=== PATIENT | female | born 1990 | race Caucasian/White ===

== ENCOUNTER 2023-07-11 09:41 | Emergency (ER) | payer MEDICARE, MEDICAID, SELFPAY ==
[2023-07-11 10:15] VITALS: BP 114/63; PULSE 107; RESP 16; TEMP 37.7; O2SAT 95
--- NOTE | 2023-07-11 10:40 | ED.URI ---
HPI - URI/Sore Throat General Chief Complaint: Upper Respiratory Infection Stated Complaint: Cough/Chest Congestion Time Seen by Provider: 07/11/23 10:30 Source: patient and RN notes reviewed Mode of arrival: ambulatory Limitations: no limitations History of Present Illness HPI Narrative: 33-year-old male presenting for complaint of fatigue, headache, body aches, sinus pressure/congestion, cough, fever/chills. onset last evening. Taking ibuprofen for symptoms. He endorses known exposure to COVID. Mother also has similar symptoms. Patient completed alcohol rehab and has been sober for 2.5 months. Denies chest pain, sob, wheezing, n/v/d. MD elicited complaint: cough Related Data Home Medications Medication Instructions Recorded Confirmed atomoxetine 80 mg capsule mg PO 07/11/23 atorvastatin 20 mg tablet mg 07/11/23 atropine 1 % eye drops drp 07/11/23 buspirone 15 mg tablet mg 07/11/23 carbamazepine 200 mg tablet mg 07/11/23 clozapine 100 mg tablet mg 07/11/23 dextromethorphan IR 45 tablet PO 07/11/23 mg-bupropion ER 105 mg biphasic tablet (Auvelity) fluoxetine 40 mg capsule mg 07/11/23 gabapentin 300 mg capsule mg 07/11/23 icosapent ethyl 1 gram capsule g PO 07/11/23 (Vascepa) metformin 500 mg tablet mg 07/11/23 metoprolol tartrate 50 mg tablet mg 07/11/23 naltrexone 50 mg tablet mg 07/11/23 potassium chloride 10 mEq meq 07/11/23 capsule,extended release prednisone 20 mg tablet mg 07/11/23 semaglutide 3 mg tablet (Rybelsus) mg PO 07/11/23 Allergies Allergy/AdvReac Type Severity Reaction Status Date / Time amoxicillin Allergy Unknown Verified 07/11/23 10:13 tramadol Allergy Unknown Verified 07/11/23 10:13 Review of Systems Review of Systems: CONSTITUTIONAL: Endorses malaise, chills, sweats, fever EYES: Denies visual changes, redness, or discharge ENT: Reports rhinorrhea, congestion, sinus pain, denies otalgia, sore throat CARDIOVASCULAR: Denies chest pain, palpitations, edema RESPIRATORY: Reports cough, post nasal drainage. Denies dyspnea GASTROINTESTINAL: Denies abdominal pain, nausea, vomiting, diarrhea SKIN: Denies rash or itching MUSCULOSKELETAL: Endorses myalgia NEUROLOGIC: endorses headache [facility] Past Medical History Medical History (Updated 07/11/23 @ 10:45 by Genesis Brooks APRN) Alcoholism Diabetes Social History Social History (Updated 07/11/23 @ 10:45 by Genesis Brooks APRN) Alcohol intake: current Alcohol use details: alcohol rehab 2022 Exam Narrative: GENERAL: Ill-appearing, nontoxic no acute distress. HEAD: Normocephalic EYES: PERRLA, conjunctivae clear ENT: Mucous membranes moist. TM pearly salmon with dull light reflex bilaterally; no tragal tenderness. NECK: Supple. No lymphadenopathy CHEST: Clear to auscultation, breath sounds equal. No wheezing, rhonchi, rales, or stridor. No respiratory distress, speaks in full sentences. HEART: Regular rate and rhythm. No murmur heard. ABD: large, soft, nontender SKIN: Warm, dry, no rash. NEURO: Alert and oriented x3. PSYCH: Normal mood and affect Course Course Emergency Course: Patient is aware of diagnosis, understands and agrees to treatment plan. Anticipatory guidance given. Patient agrees to follow-up as directed and is aware of reasons to seek care at the emergency department. Portions of this record may have been created with voice recognition software Level of Care: Express Care Visit Vital Signs Vital signs: Vital Signs Temperature 99.8 F H 07/11/23 10:15 Pulse Rate 107 H 07/11/23 10:15 Respiratory Rate 16 07/11/23 10:15 Blood Pressure 114/63 07/11/23 10:15 Pulse Oximetry 95 07/11/23 10:15 Oxygen Delivery Room Air 07/11/23 10:15 Temperature 99.8 F H 07/11/23 10:15 Pulse Rate 107 H 07/11/23 10:15 Respiratory Rate 16 07/11/23 10:15 Blood Pressure 114/63 07/11/23 10:15 Pulse Oximetry 95 07/11/23 10:15 Oxygen Delivery Room Air 0
== END 2023-07-11 10:49 | disposition home or self-care (01) ==
PROVIDERS: Emergency Provider Nurse Practitioner Family
DX: B34.9 Viral infection, unspecified (principal); E11.9 Type 2 diabetes mellitus without complications
CPT/HCPCS: 99211; G0463

== ENCOUNTER 2025-01-01 11:52 | Emergency (ER) | payer MEDICARE, MEDICAID, SELFPAY ==
--- NOTE | 2025-01-01 11:58 | ED_ITS ---
HPI - Skin/Abscess/Foreign Bdy General Chief complaint: Skin/Abscess/Foreign Body Stated complaint: Rash Time Seen by Provider: 01/01/25 11:55 Source: patient Mode of arrival: ambulatory Limitations: no limitations History of Present Illness HPI narrative: Patient is a 34-year-old male who presents with a rash to bilateral forearms for 3 days. Patient describes it as burning. Denies any known exposures, soaps, detergents. Patient restarted medication 3 weeks ago. Denies any itching but does state the rash has spread up forearms from wrist. Patient has not taken anything or put anything on rash. Related Data Home Medications ?Medication ?Instructions ?Recorded ?Confirmed ?Last Taken ?Type atomoxetine 80 mg capsule mg PO 07/11/23 Unknown History atorvastatin 20 mg tablet mg 07/11/23 Unknown History buspirone 15 mg tablet mg 07/11/23 Unknown History carbamazepine 200 mg tablet mg 07/11/23 Unknown History clozapine 100 mg tablet mg 07/11/23 Unknown History dextromethorphan IR 45 tablet PO 07/11/23 Unknown History mg-bupropion ER 105 mg biphasic tablet (Auvelity) icosapent ethyl 1 gram capsule g PO 07/11/23 Unknown History (Vascepa) metoprolol tartrate 50 mg tablet mg 07/11/23 Unknown History naltrexone 50 mg tablet mg 07/11/23 Unknown History semaglutide 3 mg tablet (Rybelsus) mg PO 07/11/23 Unknown History atorvastatin 40 mg tablet mg 01/01/25 Unknown History bupropion HCl 150 mg 24 hr tablet, mg PO 01/01/25 Unknown History extended release mirtazapine 15 mg tablet mg 01/01/25 Unknown History Allergies Allergy/AdvReac Type Severity Reaction Status Date / Time amoxicillin Allergy Unknown Verified 07/11/23 10:13 tramadol Allergy Unknown Verified 07/11/23 10:13 Review of Systems Review of Systems: All systems reviewed & are unremarkable except as noted in HPI and below Constitutional: Constitutional: Denies body ache(s), Denies chills, Denies fatigue, Denies fever(s), Denies headache(s), Denies malaise and Denies weakness Eyes: Eyes: Denies blurry vision, Denies irritation and Denies loss of vision ENT: Denies otalgia, Denies headache(s), Denies nasal discharge, Denies sinus pain and Denies sore throat Cardiovascular: Cardiovascular: Denies chest pain, Denies irregular heart rhythm and Denies dyspnea Respiratory: Respiratory: Denies dyspnea Gastrointestinal: Gastrointestinal: Denies abdominal pain, Denies melena, Denies hematochezia, Denies diarrhea, Denies nausea and Denies vomiting Musculoskeletal: Musculoskeletal: Denies back pain, Denies myalgias and Denies arthralgias Integumentary/Breasts: Skin/Breast: Denies pruritus and Reports rash Neurologic: Denies headache(s), Denies loss of vision and Denies weakness Psychiatric: Psychiatric: Reports no additional psychiatric complaints Endocrine: Endocrine: Denies fatigue PMFSH Past Medical History Medical History Diabetes Alcoholism Social History Social History Alcohol intake: current Alcohol use details: alcohol rehab 2022 Comments At time of signature, agree with nursing past medical, surgical, social and family history. There is no relevant family history pertinent to the presenting complaint. Exam Const: General: cooperative, healthy appearing, comfortable, no acute distress and well nourished Nutritional Appearance: well nourished Orientation/consciousness: patient oriented x3 Limitations: no limitations HENMT: Head: normal to inspection, normocephalic and atraumatic Ears: hear ing grossly normal bilaterally and external ears normal Face/Nose/Sinus: Normal external nose present, normal facial exam and face symmetric Face and sinus: normal facial exam and face symmetric Mouth: Yes lip normal Eyes: General: appearance normal, both eyes and all related structures Alignment and Position: alignment normal and position normal Periorbital: periorbital findings normal Eyelids: eyelids normal Pupils: Equal, round and reactive pupils present EOM: EOMs intact bilaterally Neck: Neck: normal visual inspection, full ROM and supple Chest: Chest palpation & inspection: normal inspection of the chest Resp: Effort & Inspection: normal respiratory effort and able to speak in complete sentences Auscultation: clear to auscultation bilaterally Cardio: Rate: regular rate Rhythm: regular rhythm Heart sounds: S1 normal heart sound present and S2 normal heart sound present GI: Inspection: normal to inspection Skin: General skin exam: normal color and no rashes or lesions noted Rashes: rashes noted macules bilateral forearm arrangement grouped, borders sharp and irregular, color with an erythematous base and surface erythematous and warm; nontender Neuro: General: patient oriented x3 and moves all extremities Cranial nerves: Yes Equal, round and reactive pupils present Speech: normal speech Gait exam (Neuro): Normal gait present Extrem: General: normal to inspection, full ROM and no edema Psych: Appearance: grossly normal and well kempt Mental Status: mental status grossly normal Speech and movement: Normal speech and movement present Affect: normal affect Attitude: cooperative Thought process: Normal thought process present Course Course Emergency Course: Patient is aware of diagnosis, understands and agrees to treatment plan. Anticipatory guidance given. Patient agrees to follow-up as directed and is aware of reasons to seek care at the emergency department. Portions of this record may have been created with voice recognition software Level of Care: Express Care Visit Vital Signs Vital signs: Vital Signs Temperature 37.1 C 01/01/25 11:59 Pulse Rate 109 H 01/01/25 11:59 Respiratory Rate 18 01/01/25 11:59 Blood Pressure 139/91 H 01/01/25 11:59 Pulse Oximetry 100 01/01/25 11:59 Oxygen Delivery Room Air 01/01/25 11:59 Temperature 37.1 C 01/01/25 11:59 Pulse Rate 109 H 01/01/25 11:59 Respiratory Rate 18 01/01/25 11:59 Blood Pressure 139/91 H 01/01/25 11:59 Pulse Oximetry 100 01/01/25 11:59 Oxygen Delivery Room Air 01/01/25 11:59 Reviewed MDM - Skin/Abscess/Foreign Bdy MDM Narrative Medical decision making narrative: Pt well hydrated appearing, in no respiratory distress, hemodynamically stable. Recommend supportive care. The patient is stable at time of discharge the clinical impression was discussed and the patient was given the opportunity to ask questions, which were addressed as completely as possible given the information available at present. Anticipatory guidance and return to care precautions were discussed and the importance of primary care follow-up was stressed and encouraged. The patient voiced understanding of the plan, indications to return, and the need for follow-up. Exam findings show no acute concerns or changes Patient is appropriate for outpatient treatment and follow-up. Differential Diagnosis Differential diagnosis: Likely abscess of skin or subcutaneous tissue, urticaria, herpes zoster, allergic reaction to drug, cellulitis, insect bites and contact dermatitis Lab Data Attestation: I reviewed the patient's lab results. Discharge Plan Discharge Clinical Impression: Cellulitis Qualifiers: Site of cellulitis: extremity Site of cellulitis of extremity: upper extremity Contact dermatitis Qualifiers: Contact dermatitis type: irritant Contact dermatitis trigger: unspecified trigger Qualified Code(s): L24.9 - Irritant contact dermatitis, unspecified cause Patient Disposition: Home, Self-Care Condition: Stable Instructions: Contact Dermatitis (ED), Cellulitis (ED) Additional Instructions: Take steroid in the morning with food. Take antibiotics as prescribed. Wash the skin thoroughly with soap and cool water as soon as possible. Scrub under the fingernails with a brush to prevent spreading to other parts of the body by touching or scratching. For some people, adding oatmeal to a bath, applying cool wet compresses, and applying calamine lotion may help to relieve itching IF symptoms get worse to follow up with your primary care provider or seek ER visit if you developing difficulty breathing, weakness, dizziness Your blood pressure was elevated above 120/80 today at Urgent Care. This puts you above the threshold for follow up visit with a primary care provider. High blood pressure does not usually cause any symptoms, however it may lead to kidney failure, stroke, heart disease just to name a few if untreated . Many people are anxious when seeing a provider or nurse. As a result, you are not diagnosed with hypertension at this time unless your blood pressure is persistently high at two office visits at least one week apart. Some things that can help lower blood pressure are lifestyle modifications, such as light exercise, decreased salt in diet, and weight loss. It is important to follow up with a PCP about this within 1 week. Patient Language: Tamazight Prescriptions: New prednisone 10 mg tablet See Rx Instructions .ROUTE .COMPLEX Qty: 21 0RF Rx Instructions: 40 mg daily for 3 days, 20 mg daily for 3 days, 10 mg daily for 3 days cephalexin 500 mg capsule 500 mg PO QID 7 Days Qty: 28 0RF No Action atorvastatin 20 mg tablet clozapine 100 mg tablet naltrexone 50 mg tablet carbamazepine 200 mg tablet metoprolol tartrate 50 mg tablet buspirone 15 mg tablet atomoxetine 80 mg capsule PO icosapent ethyl [Vascepa] 1 gram capsule PO Rybelsus 3 mg tablet PO Auvelity 45-105 mg tablet,IR,delayed rel,biphasic PO atorvastatin 40 mg tablet mirtazapine 15 mg tablet bupropion HCl 150 mg tablet extended release 24 hr PO Follow-up/Referrals: Reji Singletary MD [Physician] - 3 Days Time of Disposition: 12:44
[2025-01-01 11:59] VITALS: BP 139/91; PULSE 109; RESP 18; TEMP 37.1; O2SAT 100
--- OUTSIDE RECORDS SUMMARY | 2025-01-01 12:03 | XMS_ITS | Encounter Summary ---
Author Organization [employer] Address 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
--- OUTSIDE RECORDS SUMMARY | 2025-01-01 12:03 | XMS_ITS | Encounter Summary ---
Author Organization [employer] Address 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
--- OUTSIDE RECORDS SUMMARY | 2025-01-01 12:03 | XMS_ITS | Encounter Summary ---
Author Organization [employer] Address 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
--- OUTSIDE RECORDS SUMMARY | 2025-01-01 12:03 | XMS_ITS | Encounter Summary ---
Author Organization [employer] Address 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
--- OUTSIDE RECORDS SUMMARY | 2025-01-01 12:03 | XMS_ITS | Encounter Summary ---
Author Organization [facility] Address [address] [facility] [place] [address] Care Team Providers Care Dairy Technologist Name Role Phone None, Physician Primary Care Provider Unavailabl e Encounter Details Date Type Department Care Team (Late st Contact Info) Description 12/16/2020 Lab Requisition [facility] [address] [facility] [place] [phone] Guzman Lanier Jr., MD [address] [facility] [address] [place] [address] Social History Tobacco Use Types Packs/Day Years Used Date Smoking Tobacco: Former Cigarettes 1 14 Smokeless Tobacco: Never Comments:Cigarettes and e-ci g Alcohol Use Standard Drinks/Week Comments Yes 0 (1 standard drink = 0.6 oz pur e alcohol) Fifth of alcohol per day Sex and Gender Information Value Date Recorded Sex Assigned at Not on file Gender Identity Not on file Sexual Orientation Not on file documented as of this encounter Functional Status Functional Status Response Date of Assess ment Is person deaf or have serious hearing difficult y? No 12/22/2019 Is person blind or have serious difficulty seein g? No 12/22/2019 Does person have serious dif ficulty walking/climbing stairs? No 12/22/2019 Does person have difficulty dressing/bathing? No 12/22/2019 Does person have difficulty doing errands alone? No 12/22/2019 Cognitive Status Response Date of Assessm ent Does person have difficulty concentrating/remembering/making decisions? No 12/22/2019 documented as of this encounter Plan of Treatment Not on file documented as of this encounter Procedures Procedure Name Priority Date/Time Associated Diagnosis Comments DERMATOPATHOLOGY Routine 12/14/2020 3:33 AM SHARK BIOLOGIST documented in this encounter Results * DERMATOPATHOLOGY (12/14/2020 3:33 AM SHARK BIOLOGIST) Case Report Dermatopathology Report Case: [id number] Authorizing Provider: Guzman Lanier Jr., MD Collected: 12/14/2020 03:33 AM Ordering Location: [facility] Received: 12/16/2020 07:17 AM Pathologist: Johanna Marks MD Specimen: Skin, right inferior kayla lip 2:46 PM SHARK BIOLOGIST DERMATOPATHOLOGY LABORATORY Final Diagnosis Specimen A. 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 . 1 2:46 PM SHARK BIOLOGIST DERMATOPATHOLOGY LABORATORY Gross Description Specimen A: Received is one formalin filled container labeled with the patient's name and designated right inferior kayla lip. The specimen consists of a non-oriented ellipse of skin measuring [id number]. The epidermal surface is unremarkable. The margin is inked green. The specimen is bisected and submitted in 1 cassette. Jar 0. 1 2:46 PM SHARK BIOLOGIST DERMATOPATHOLOGY LABORATORY Microscopic Description Specimen A. SKIN, right inferior kayla lip: There is a collection of mucin associated with a mixed infiltrate of inflammatory cells. 1 2:46 PM SHARK BIOLOGIST DERMATOPATHOLOGY LABORATORY Disclaimer An external and internal positive and negative controls are appropriate for the histochemical, immunohistochemical and immunofluorescence stain(s) in this case (if any), except where stated explicitly. The performance characteristics of the stain(s) cited in this report were developed and its performance characteristic determined by the Dermatopathology Laboratory at [facility], directed by Dr. Ulysses Castillo. These tests need not be, and therefore are not, approved by the [place] Food and Drug Administration. The tests are used for clinical purposes. Billing Codes Specimen Charges Stain Charges 14746 1 1 2:46 PM SHARK BIOLOGIST DERMATOPATHOLOGY LABORATORY Embedded Images 1 2:46 PM SHARK BIOLOGIST DERMATOPATHOLOGY LABORATORY Pathology/Cytolo gy TISSUE SPECIMEN FROM SKIN / Unknown 12/14/2020 3:33 AM SHARK BIOLOGIST 12/16/2020 7:17 AM SHARK BIOLOGIST Guzman Lanier Jr., MD LAB - PATHOLOGY /CYTOLOGY ORDERABLES DERMATOPATHOLOGY LABORATORY [facility] - Department of Dermatology [facility] Specialized Medicine [address] [place] [address], [address] [phone] documented in this encounter Visit Diagnoses Not on filedocumented in this encounter Care Teams Dairy Technologist Relationship Specialty Start Date End Date None, Physician [address] [place] [address] PCP - General 11/19/24 documented as of this encounter
--- OUTSIDE RECORDS SUMMARY | 2025-01-01 12:03 | XMS_ITS | Encounter Summary ---
Author Organization [employer] Address [address] [place] [address] Care Team Providers Care Production Team Advisor Name Role Phone Kimberlee Mcclain MD Primary Care Provider Encounter Details Date Type Department Care Team (Latest Contact Info) Description 01/18/2000 Outpatient Historical HIS [facility] Pagan, Zhao Ferrara MD [facility] [facility] [address] [place] [phone] Pain in joint, pelvic region and thigh (Primary Dx) Social History Tobacco Use Types Packs/Day Years Used Date Smoking Tobacco: Never Assessed Sex and Gender Information Value Date Recorded Sex Assigned at Not on file 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
--- OUTSIDE RECORDS SUMMARY | 2025-01-01 12:03 | XMS_ITS | Encounter Summary ---
Author Organization [employer] Address [address] [place] [address] Care Team Providers Care Ingot Caster Name Role Phone Kimberlee Mcclain MD Primary Care Provider [phone] Encounter Details Date Type Department Care Team (Late st Contact Info) Description 02/01/2000 Outpatient Historical HIS [facility] DEPT [place] [address] 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
--- OUTSIDE RECORDS SUMMARY | 2025-01-01 12:03 | XMS_ITS | Encounter Summary ---
Author Organization [employer] Address 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
--- OUTSIDE RECORDS SUMMARY | 2025-01-01 12:03 | XMS_ITS | Encounter Summary ---
Author Organization [facility] Address [address] [place] [address] Care Team Providers Care Automotive Lube Technician Name Role Phone None, Physician Primary Care Provider Unavailabl e Encounter Details Date Type Department Care Team (Late st Contact Info) Description 05/23/2023 Lab Requisition [facility] [address] [place] [address] Alexandra Mejía MD [address] [facility] [address] [place] [address] Social History Tobacco Use Types Packs/Day Years [...] Procedure Name Priority Date/Time Associated Diagnosis Comments CBC W AUTO DIFFERENTIAL STAT 05/23/2023 7:30 AM CDT COMPREHENSIVE METABOLIC PANEL STAT 05/23/2023 7:30 AM CDT AMMONIA STAT 05/23/2023 7:30 AM CDT documented in this encounter Results * AMMONIA (05/23/2023 7:30 AM CDT) Ammonia 56 18 - 72 umol/L 05/23/2023 2:04 PM CDT [facility] Blood BLOOD SPECIMEN / Unknown Venipuncture / Unknown 05/23/2023 7:30 AM CDT 05/23/2023 1:45 PM CDT Alexandra Mejía MD LAB - [facility] Organization Address City/State/[facility] Co de Phone Number [facility] [address] [place] [address] * (ABNORMAL) COMPREHENSIVE METABOLIC PANEL (05/23/2023 7:30 AM CDT) Glucose 138(H) 70 - 105 mg/dL 05/23/2023 2:14 PM CDT [facility] Sodium 141 136 - 145 mmol/L 05/23/2023 2:14 PM CDT [facility] Potassium 4.0 3.5 - 5.1 mmol/L 05/23/2023 2:14 PM CDT [facility] Chloride 105 98 - 107 mmol/L 05/23/2023 2:14 PM CDT [facility] CO2 26 23 - 31 mmol/L 05/23/2023 2:14 PM CDT [facility] Calcium 9.0 8.4 - 10.4 mg/dL 05/23/2023 2:14 PM CDT [facility] Anion Gap 10 8 - 18 mmol/L 05/23/2023 2:14 PM CDT [facility] BUN 11 8.9 - 20.6 mg/dL 05/23/2023 2:14 PM CDT [facility] Creatinine 0.94 0.72 - 1.25 mg/dL 05/23/2023 2:14 PM CDT [facility] Alkaline Phosphatase 144 40 - 150 U/L 05/23/2023 2:14 PM CDT [facility] ALT 59 0 - 61 U/L 05/23/2023 2:14 PM CDT [facility] AST 65(H) 5 - 34 U/L 05/23/2023 2:14 PM CDT [facility] Protein Total 6.9 6.4 - 8.3 gm/dL 05/23/2023 2:14 PM CDT [facility] Albumin 4.0 3.5 - 5.2 gm/dL 05/23/2023 2:14 PM CDT [facility] Bilirubin Total 1.5(H) 0.2 - 1.2 mg/dL 05/23/2023 2:14 PM CDT [facility] eGFR by CKD-EPI >90 >=90 mL/min/1.7 3 m2 05/23/2023 2:14 PM CDT [facility] Blood BLOOD SPECIMEN / Unknown Venipuncture / Unknown 05/23/2023 7:30 AM CDT 05/23/2023 1:45 PM CDT Alexandra Mejía MD LAB - CHEMISTRY [facility] Organization Address City/State/ZIP Co de Phone Number [facility] [address] [place], [place] [id number] * (ABNORMAL) CBC WITH DIFFERENTIAL (05/23/2023 7:30 AM CDT) [facility] Signature WBC 3.4(L) 4.4 - 10.7 x10E9/L 05/23/2023 1:55 PM CDT [facility] WBC Corrected 05/23/2023 1:55 PM CDT [facility] RBC 4.59 3.80 - 5.40 x10E12/L 05/23/2023 1:55 PM CDT [facility] Hemoglobin 14.6 12.0 - 17.6 gm/dL 05/23/2023 1:55 PM CDT [facility] Hematocrit 43.1 35.2 - 51.7 % 05/23/2023 1:55 PM CDT [facility] MCV 93.9 80.7 - 98.3 fl 05/23/2023 1:55 PM CDT [facility] MCH 31.8 26.7 - 34.0 pg 05/23/2023 1:55 PM CDT [facility] MCHC 33.9 30.8 - 35.9 gm/dL 05/23/2023 1:55 PM CDT [facility] Platelet Count 101(L) 153 - 416 x10E9/L 05/23/2023 1:55 PM CDT [facility] RDW-CV 14.1 12.1 - 14.9 % 05/23/2023 1:55 PM CDT [facility] MPV 10.4 9.4 - 12.9 fl 05/23/2023 1:55 PM CDT [facility] Neutrophils % 53.6 44.0 - 73.0 % 05/23/2023 1:55 PM CDT [facility] Lymphocytes % 33.7 20.0 - 43.0 % 05/23/2023 1:55 PM CDT [facility] Monocytes % 12.4 5.0 - 13.0 % 05/23/2023 1:55 PM CDT [facility] Eosinophils % 0.0 0.0 - 6.0 % 05/23/2023 1:55 PM CDT [facility] Basophils % 0.0 0.0 - 2.0 % 05/23/2023 1:55 PM CDT [facility] Immature Granulocytes 0.3 0 - 1 % 05/23/2023 1:55 PM CDT [facility] Neutrophil Absolute 1.81(L) 2.01 - 7.14 x10E9/L 05/23/2023 1:55 PM CDT [facility] Lymphocytes Absolute 1.14 1.07 - 3.94 x10E9/L 05/23/2023 1:55 PM CDT [facility] Monocytes Absolute 0.42 0.26 - 1.07 x10E9/L 05/23/2023 1:55 PM CDT [facility] Eosinophils Absolute 0.00 0 - 0.47 x10E9/L 05/23/2023 1:55 PM CDT [facility] Basophils Absolute 0.00 0 - 0.08 x10E9/L 05/23/2023 1:55 PM CDT [facility] Immature Granulocytes Absolute 0.01 0.00 - 0.06 x10E9/L 05/23/2023 1:55 PM CDT [facility] nRBC Auto 0 /100 WBC 05/23/2023 1:55 PM CDT [facility] Blood BLOOD SPECIMEN / Unknown Venipuncture / Unknown 05/23/2023 7:30 AM CDT 05/23/2023 1:45 PM CDT Alexandra Mejía MD LAB - HEMATOLOGY ORD ERABLES [facility] [address] [place], [place] [id number] documented in this encounter Visit Diagnoses Not on filedocumented in this encounter Care Teams Automotive Lube Technician Relationship Specialty Start Date End Date None, Physician [address] [place] [address] PCP - General 11/19/24 documented as of this encounter
--- OUTSIDE RECORDS SUMMARY | 2025-01-01 12:03 | XMS_ITS | Encounter Summary ---
Author Organization [employer] Address [address] [place] [address] Care Team Providers Care Lawn And Garden Technician Name Role Phone Kimberlee Mcclain MD Primary Care Provider [phone]- [phone] Encounter Details Date Type Department Care Team (Late st Contact Info) Description 01/18/2000 Outpatient Historical HIS [facility] DEPT [place] [address] 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
--- OUTSIDE RECORDS SUMMARY | 2025-01-01 12:03 | XMS_ITS | Encounter Summary ---
Author Organization [employer] Address [address] [place] [address] Care Team Providers Care Management Coordinator Name Role Phone Kimberlee Mcclain MD Primary Care Provider [phone]- [phone] Encounter Details Date Type Department Care Team (Late st Contact Info) Description 03/07/1999 Outpatient Historical HIS [facility] DEPT [place] [address] 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
--- OUTSIDE RECORDS SUMMARY | 2025-01-01 12:03 | XMS_ITS | Encounter Summary ---
Author Organization [email or web address] Address 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
--- OUTSIDE RECORDS SUMMARY | 2025-01-01 12:03 | XMS_ITS | Encounter Summary ---
Author Organization [employer] Address 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
--- OUTSIDE RECORDS SUMMARY | 2025-01-01 12:04 | XMS_ITS | Clinical Summary ---
Author Organization [facility] Address [address] [place] [address] Phone Care Team Providers Care Supervisor Detasseling Crew Name Role Phone Kristy Cintron MD Primary Care Provi glen Allergies Active Allergy Reactions Criticality Noted Date Comments Amoxicillin Hives 12/15/2015 Quetiapine Other (see Comments) 10/24/2024 Muscle cramping Tramadol Other (see Comments) 12/15/2015 seizure Medications cloZAPine (CLOZARIL) 100 MG Tablet Take 300 mg by mouth nightly. 6 Active metoprolol tartrate (LOPRESSOR) 25 MG Tablet Take 25 mg by mouth 2 times daily. Active busPIRone HCl (BUSPAR) 30 MG Tablet Take 30 mg by mouth 2 times daily. Active ondansetron (ZOFRAN-ODT) 4 MG TABLET DISPERSIBLE Take 1 Tab by mouth every 6 hours as needed for Nausea - 1st line. 10 Tab 9 Active polyethylene glycol (GLYCOLAX, MIRALAX) Pack Take 1 Packet by mouth daily as needed for Constipation. Dissolve in 4-8 oz of liquid. 90 Packet 9 Active Vitamin B-1 (THIAMINE) 100 MG Tablet Take 1 Tab by mouth daily. 15 Tab 9 Active cyclobenzaprine (FLEXERIL) 5 MG Tablet Take 1 Tablet by mouth 3 times daily as needed for Muscle spasms. 15 Tablet 2 Active ketorolac (TORADOL) 10 MG Tablet Take 1 Tablet by mouth every 6 hours as needed for Mild or more severe pain. 15 Tablet 2 Active methylPREDNISolon e (MEDROL DOSPACK) 4 MG Tablet Therapy Pack See product package insert for dosing schedule 21 Tablet 2 Active naproxen (NAPROSYN) 500 MG Tablet Take 1 Tablet by mouth 2 times daily as needed for Mild or more severe pain. 20 Tablet 4 Active chlordiazePOXIDE (LIBRIUM) 25 MG CapsuleIndication s:Alcohol withdrawal syndrome with complication (HCC) Take 1 Capsule by mouth 3 times daily as needed for Withdrawal. 20 Capsule 4 Active Active Problems Problem Noted Date Diagnosed Date Polysubstance abuse 02/14/2019 Hypokalemia 02/13/2019 Schizophrenia 02/13/2019 Acute metabolic encephalopathy 02/13/2019 Alcohol intoxication delirium 02/13/2019 Major depressive disorder, recurrent 02/13/2019 Encounters Date Type Department Care Team Description 10/24/2024 10:49 AM DEVOPS DEVELOPER - 10/24/2024 1:51 PM DEVOPS DEVELOPER Emergency [facility] [address] [place] [address] Denisse Law MD Alcohol withdrawal syndrome with complication (HCC) Discharge Disposition: Discharged to home or Selfcare 10/24/2024 Travel from Last 3 Months Immunizations Immunization Administration Dates Next Due TDAP Vaccine 03/04/2024 Social History Tobacco Use Types Packs/Day Years Used Date Smoking Tobacco: Every Day Cigarettes E-Vapor with Nicotine Smokeless Tobacco: Never Tobacco Cessation:Ready to Q uit: Not Asked; Counseling Given: Not Answered Alcohol Use Standard Drinks/Week Comments Yes 42 (1 standard drink = 0.6 oz pure alcohol) Reports drinking 6 beers a day Sex and Gender Information Value Date Recorded Sex Assigned at Not on file Legal Sex Male 9:51 PM CDT Gender Identity Not on file Sexual Orientation Not on file Last Filed Vital Signs Vital Sign Reading Time Taken Comments Blood Pressure 160/106 10/24/2024 1:15 PM DEVOPS DEVELOPER Pulse 120 10/24/2024 1:45 PM DEVOPS DEVELOPER Temperature 36.7 C (98.1 F) 10/24/2024 10:55 AM DEVOPS DEVELOPER Respiratory Rate 11 10/24/2024 1:45 PM DEVOPS DEVELOPER Oxygen Saturation 99% 10/24/2024 1:45 PM DEVOPS DEVELOPER Inhaled Oxygen Concentration - - Weight 106.5 kg (234 lb 12.6 oz) 2023 10:55 AM DEVOPS DEVELOPER Height 180.3 cm (5' 11 ) 10/24/2024 10: 55 AM DEVOPS DEVELOPER Body Mass Index 32.75 10/24/2024 10:55 AM DEVOPS DEVELOPER Plan of Treatment Health Maintenance Due Date Last Done Comments Hepatitis C Virus (HCV) Screening 1989 Hepatitis B Immunization (2 of 3 - 3-dose series) 10/29/2000 10/01/2000 Pneumococcal Immunization Combined (1 of 2 - PCV) 2008 Influenza Immunization (#1) 07/12/202408/11, 08/24/2022, 08/30/2021, Additional history exists SARS-COV-2 Immunization ( - season) 2024 07/12/2021, 06/19/2021 Td Immunization Every 10 Years (Adults With 1 Tdap) 03/04/2034 03/04/2024, 11/24/2015 Respiratory Syncytial Virus (RSV) Immunization (Adult) (1 - 1-dose 75+ series) 2064 DTaP/Tdap/Td Immunization Discontinued 2023, 11/24/2015, 05/05/1991, Additional history exists TdaP Immunization Discontinued 03/04/2024, 11/24/2015 Meningococcal Immunization (ACWY) Aged Out No longer eligible based on patient's age to complete this topic Rotavirus Immunization Aged Out No lo nger eligible based on patient's age to complete this topic Procedures Procedure Name Priority Date/Time Associated Diagnosis Comments XR CHEST SINGLE VIEW PORTABLE STAT 10/24/2024 11:19 AM DEVOPS DEVELOPER CBC WITH AUTO DIFFERENTIAL STAT 10/24/2024 11:06 AM DEVOPS DEVELOPER CMP (COMPREHENSIVE METABOLIC PANEL) STAT 10/24/2024 11:06 AM DEVOPS DEVELOPER ETHYL ALCOHOL (ETHANOL) STAT 10/24/2024 11:06 AM DEVOPS DEVELOPER URINE DRUG SCREEN STAT 10/24/2024 11: 06 AM DEVOPS DEVELOPER URINALYSIS REFLEX IF INDICATED BY ABNORMAL RESULTS STAT 10/24/2024 11:06 AM DEVOPS DEVELOPER B-TYPE NATRIURETIC PEPTIDE (BNP) STAT 10/24/2024 11:06 AM DEVOPS DEVELOPER TROPONIN I, HIGH SENSITIVITY (HSTRP) STAT 10/24/2024 11:06 AM DEVOPS DEVELOPER MAGNESIUM (MG) STAT 10/24/2024 11:06 AM DEVOPS DEVELOPER COMPLETE BLOOD COUNT (CBC) WITH DIFF STAT 10/24/2024 11:06 AM DEVOPS DEVELOPER GOLD TOP TUBE STAT 10/24/2024 10:58 AM DEVOPS DEVELOPER BLUE TOP TUBE STAT 10/24/2024 10:58 AM DEVOPS DEVELOPER EXTRA TUBES STAT 10/24/2024 10:58 AM DEVOPS DEVELOPER EKG 12 LEAD STAT 10/24/2024 10:53 AM DEVOPS DEVELOPER EKG SCAN 10/24/2024 12:00 AM DEVOPS DEVELOPER from Last 3 Months Results * XR CHEST SINGLE VIEW PORTABLE (10/24/2024 11:19 AM DEVOPS DEVELOPER) Anatomical Region Laterality Modality Chest N/A Computed Radiogr aphy 10/24/2024 12:0 3 PM DEVOPS DEVELOPER Impressions 10/24/2024 12:05 PM DEVOPS DEVELOPER IMPRESSION: No acute cardiopulmonary abnormality. Narrative 10/24/2024 12:05 PM DEVOPS DEVELOPER EXAM DESCRIPTION: XR CHEST SINGLE VIEW PORTABLE REASON FOR STUDY: medial chest pain, SOB x 2 months, worse this morning with nausea. Hx of HTN TECHNIQUE: 1 radiographic view(s) of the chest. COMPARISON: 09/29/2023 FINDINGS: LUNGS: No focal opacity, pleural effusion, or pneumothorax. HEART/MEDIASTINUM: Cardiac silhouette normal in size. Mediastinal and hilar contours appear normal. LINES/TUBES: None. BONES: No acute osseous abnormality. THIS IS AN ELECTRONICALLY VERIFIED FINAL REPORT 10/24/2024 12:03 PM - Electronically signed by Stephanie Puente M.D. AB: AB Report ID: [id number] Reading Location: [id number] Procedure Note Stephanie Puente MD - 10/24/2024 EXAM DESCRIPTION: XR CHEST SINGLE VIEW PORTABLE REASON FOR STUDY: medial chest pain, SOB x 2 months, worse this morning with nausea. Hx of HTN TECHNIQUE: 1 radiographic view(s) of the chest. COMPARISON: 09/29/2023 FINDINGS: LUNGS: No focal opacity, pleural effusion, or pneumothorax. HEART/MEDIASTINUM: Cardiac silhouette normal in size. Mediastinal and hilar contours appear normal. LINES/TUBES: None. BONES: No acute osseous abnormality. THIS IS AN ELECTRONICALLY VERIFIED FINAL REPORT 10/24/2024 12:03 PM - Electronically signed by Stephanie Puente M.D. AB: AB Report ID: [id number] Reading Location: [id number] IMPRESSION: No acute cardiopulmonary abnormality. Denisse Law MD IMG DIAGNOSTIC ORDERABLE S Final Result * (ABNORMAL) Urinalysis w/ Reflex (10/24/2024 11:06 AM DEVOPS DEVELOPER) SPECIFIC GRAVITY 1.010 1.003 - 1.030 10/24/2024 12:04 PM [facility] URINE PH 7.0 5.0 - 9.0 10/24/2024 12:04 PM DEVOPS DEVELOPER [facility] WBC ESTERASE 25 /ul(A) Negative 10/24/2024 12:04 PM DEVOPS DEVELOPER [facility] NITRITE Negative Negative 10/24/2024 12:04 PM [facility] PROTEIN, RANDOM URINE 30 mg/dL(A) Negative 10/24/2024 12:04 PM [facility] URINE GLUCOSE, QUAL Negative Negative 10/24/2024 12:04 PM [facility] URINE KETONES 15 mg/dL(A) Negative 10/24/2024 12:04 PM DEVOPS DEVELOPER [facility] UROBILINOGEN 1 mg/dL(A) Normal mg/dL 10/24/2024 12:04 PM DEVOPS DEVELOPER [facility] URINE BLOOD Negative Negative ras/ul 10/24/2024 12:04 PM [facility] URINALYSIS COLOR Dark Yellow 10/24/2024 12:04 PM [facility] URINALYSIS CLARITY Slightly Cloudy 10/24/2024 12:04 PM DEVOPS DEVELOPER [facility] WBC (Urine) 0-5 Negative, 0-5 /hpf 10/24/2024 12:04 PM DEVOPS DEVELOPER [facility] URINE RBC'S Negative Negative, 0-2 /hpf 10/24/2024 12:04 PM DEVOPS DEVELOPER [facility] EPITHELIAL CELLS Occasional /lpf 10/24/2024 12:04 PM [facility] BACTERIA, URINE Few(A) Negative /hpf 10/24/2024 12:04 PM DEVOPS DEVELOPER [facility] URINE MUCOUS Few 10/24/2024 12:04 PM DEVOPS DEVELOPER [facility] Urine URINE SPECIMEN / Unknown Non-Phlebotomy Collection / Unknown 10/24/2024 11:06 AM DEVOPS DEVELOPER 10/24/2024 11:25 AM [facility] us Denisse Law MD URINE ORDERABLES Final R esult [facility] [address] [place] [address] * TROPONIN I, HIGH SENSITIVITY (HSTRP) (10/24/2024 11:06 AM DEVOPS DEVELOPER) TROPONIN I, HIGH SENSITIVITY- JONES <3 <=35 ng/L 10/24/2024 11:34 AM DEVOPS DEVELOPER [facility] Comment: High-sensitivity troponin I results are reported in ng/L making the result appear to be 1,000 times higher than the contemporary troponin I value which is reported in ng/ml. Results from [facility]. Blood Venipuncture / Unknown 10/24/2024 11:06 AM DEVOPS DEVELOPER 10/24/2024 11:07 AM DEVOPS DEVELOPER Denisse Law MD CHEMISTRY ORDERABLES Fin al Result [facility] [address] [place] [address] * (ABNORMAL) CBC with Auto Differential (10/24/2024 11:06 AM DEVOPS DEVELOPER) WBC 8.00 4.00 - 12.00 10(3)/[facility] 10/24/2024 11:10 AM DEVOPS DEVELOPER [facility] RBC 4.87 4.40 - 5.80 10(6)/[facility] 10/24/2024 11:10 AM [facility] HEMOGLOBIN (HGB) 15.9 13.0 - 16.5 g/dL 10/24/2024 11:10 AM [facility] HEMATOCRIT (HCT) 44.3 38.0 - 50.0 % 10/24/2024 11:10 AM DEVOPS DEVELOPER [facility] MCV 91.0 82.0 - 96.0 fL 10/24/2024 11:10 AM [facility] MCH 32.6(H) 26.0 - 32.0 pg 10/24/2024 11:10 AM [facility] MCHC 35.9 31.0 - 36.0 g/dL 10/24/2024 11:10 AM DEVOPS DEVELOPER [facility] PLATELET COUNT 178 140 - 440 10(3)/[facility] 10/24/2024 11:10 AM DEVOPS DEVELOPER [facility] RDW 13.2 11.8 - 15.5 % 10/24/2024 11:10 AM [facility] MPV 10.0 8.0 - 12.6 fL 10/24/2024 11:10 AM [facility] NEUTROPHILS 69.7(H) 40.0 - 68.0 % 10/24/2024 11:10 AM [facility] LYMPHOCYTES 20.6 19.0 - 49.0 % 10/24/2024 11:10 AM [facility] MONOCYTES 9.6 3.0 - 13.0 % 10/24/2024 11:10 AM [facility] EOSINOPHILS 0.0 0.0 - 8.0 % 10/24/2024 11:10 AM [facility] BASOPHILS 0.1 0.0 - 1.0 % 10/24/2024 11:10 AM [facility] ABSOLUTE NEUTROPHILS 5.57(H) 1.40 - 5.30 10(3)/[facility] 10/24/2024 11:10 AM [facility] ABSOLUTE LYMPHOCYTES 1.65 0.90 - 3.30 10(3)/[facility] 10/24/2024 11:10 AM [facility] ABSOLUTE MONOCYTES 0.77 0.10 - 0.90 10(3)/[facility] 10/24/2024 11:10 AM [facility] ABSOLUTE EOSINOPHIL 0.00 0.00 - 0.50 10(3)/[facility] 10/24/2024 11:10 AM [facility] ABSOLUTE BASOPHILS 0.01 0.00 - 0.10 10(3)/[facility] 10/24/2024 11:10 AM [facility] NRBC PER 100 WBC 0 10/24/20 11:10 AM [facility] Blood Venipuncture / Unknown 10/24/2024 11:06 AM [facility] 10/24/2024 11:07 AM [facility] us Denisse Law MD HEMATOLOGY ORDERABLES Fi nal Result [facility] [address] [place] [address] * Magnesium (10/24/2024 11:06 AM [facility]) MAGNESIUM 1.6 1.6 - 2.6 mg/dL 10/24/2024 11:30 AM DEVOPS DEVELOPER [facility] Blood Venipuncture / Unknown 10/24/2024 11:06 AM DEVOPS DEVELOPER 10/24/2024 11:07 AM DEVOPS DEVELOPER us Denisse Law MD CHEMISTRY ORDERABLES Fin al Result Performing Organization Address City/[facility]/ZIP Co de Phone Number [facility] [address] [place] [address] * (ABNORMAL) Ethyl Alcohol(Ethanol) RRX701 (10/24/2024 11:06 AM DEVOPS DEVELOPER) ETHANOL 65(H) <10 mg/dL 10/24/2024 11:30 AM DEVOPS DEVELOPER [facility] Blood Venipuncture / Unknown 10/24/2024 11:06 AM DEVOPS DEVELOPER 10/24/2024 11:07 AM DEVOPS DEVELOPER Denisse Law MD CHEMISTRY ORDERABLES Fin al Result Performing Organization Address [facility] Co de Phone Number [facility] [address] [place] [address] * (ABNORMAL) CMP (10/24/2024 11:06 AM DEVOPS DEVELOPER) SODIUM 142 136 - 145 mmol/L 10/24/2024 1:37 PM DEVOPS DEVELOPER [facility] POTASSIUM 3.7 3.5 - 5.1 mmol/L 10/24/2024 1:37 PM DEVOPS DEVELOPER [facility] CHLORIDE 106 98 - 107 mmol/L 10/24/2024 1:37 PM DEVOPS DEVELOPER [facility] CO2, VENOUS 18(L) 22 - 30 mmol/L 10/24/2024 1:37 PM DEVOPS DEVELOPER [facility] ANION GAP 21.7(H) <18.0 mmol/L 10/24/2024 1:37 PM DEVOPS DEVELOPER [facility] GLUCOSE 106(H) 70 - 99 mg/dL 10/24/2024 1:37 PM [facility] BUN 8(L) 9 - 21 mg/dL 10/24/2024 1:37 PM [facility] CREATININE, BLOOD 1.05 0.70 - 1.30 mg/dL 10/24/2024 1:37 PM [facility] BUN/CREATININE RATIO 8(L) 12 - 20 ratio 10/24/2024 1:37 PM [facility] TOTAL PROTEIN 7.7 6.3 - 8.2 g/dL 10/24/2024 1:37 PM [facility] ALBUMIN 4.9 3.5 - 5.0 g/dL 10/24/2024 1:37 PM [facility] A/G RATIO 1.8 1.0 - 2.2 10/24/2024 1:37 PM [facility] CALCIUM 9.3 8.7 - 10.5 mg/dL 10/24/2024 1:37 PM [facility] T BILI 0.7 0.2 - 1.2 mg/dL 10/24/2024 1:37 PM [facility] SGOT (AST) 45(H) 5 - 34 U/L 10/24/2024 1:37 PM [facility] SGPT (ALT) 48 0 - 55 U/L 10/24/2024 1:37 PM [facility] ALKALINE PHOSPHATASE 131 40 - 150 U/L 10/24/2024 1:37 PM [facility] GFR, ESTIMATED >60 >=60 10/24/2024 1:37 PM [facility] Comment: Creatinine Clearance is the preferred criteria for selecting drug dose adjustments in renally impaired patients. The GFR is provided as additional pertinent clinical information. GFR is reported in mL/min/1.73 sq m. Calculation based on the Chronic Kidney Disease Epidemiology Collaboration (CKD- EPI) equation refit without adjustment for race. GFR, EST. >60 >=60 024 1:37 PM [facility] GFR, EST. NONAFRICAN >60 >=60 10/24/2024 1:37 PM DEVOPS DEVELOPER [facility] Blood Venipuncture / Unknown 10/24/2024 11:06 AM DEVOPS DEVELOPER 10/24/2024 11:07 AM DEVOPS DEVELOPER Denisse Law MD CHEMISTRY ORDERABLES Fin al Result Performing Organization Address City/[facility]/ZIP Co de Phone Number [facility] [address] [place] [address] * B-Type Natriuretic Peptide (BNP) (10/24/2024 11:06 AM DEVOPS DEVELOPER) B TYPE NATRIURETIC PEPTIDE <15 <100 pg/mL 10/24/2024 11:54 AM DEVOPS DEVELOPER [facility] Blood Venipuncture / Unknown 10/24/2024 11:06 AM DEVOPS DEVELOPER 10/24/2024 11:07 AM DEVOPS DEVELOPER Denisse Law MD CHEMISTRY ORDERABLES Fin al Result Performing Organization Address City/[facility] Co de Phone Number [facility] [address] [place] [address] * (ABNORMAL) Urine Drug Screen (10/24/2024 11:06 AM DEVOPS DEVELOPER) UR AMPHETAMINE NON DETECTED NON DETECTED 10/24/2024 11:38 AM DEVOPS DEVELOPER [facility] Comment: FOR MEDICAL USE ONLY. CUTOFF CONCENTRATION FOR DETECTED RESULT: AMPHETAMINE: 500 NG/ML UR BENZODIAZEPINES DETECTED(A) NON DETECTED 10/24/2024 11:38 AM DEVOPS DEVELOPER [facility] Comment: FOR MEDICAL USE ONLY. CUTOFF CONCENTRATION FOR DETECTED RESULT: BENZODIAZAPINE: 200 NG/ML UR COCAINE METABOLITE NON DETECTED NON DETECTED 10/24/2024 11:38 AM DEVOPS DEVELOPER [facility] Comment: FOR MEDICAL USE ONLY. CUTOFF CONCENTRATION FOR DETECTED RESULT: COCAINE: 150 NG/ML UR OPIATES NON DETECTED NON DETECTED 10/24/2024 11:38 AM DEVOPS DEVELOPER [facility] Comment: FOR MEDICAL USE ONLY. CUTOFF CONCENTRATION FOR DETECTED RESULT: OPIATES: 300 NG/ML UR PHENCYCLIDINE NON DETECTED NON DETECTED 10/24/2024 11:38 AM DEVOPS DEVELOPER [facility] Comment: FOR MEDICAL USE ONLY. CUTOFF CONCENTRATION FOR DETECTED RESULT: PCP: 25 NG/ML UR CANNABINOID NON DETECTED NON DETECTED 10/24/2024 11:38 AM DEVOPS DEVELOPER [facility] Comment: FOR MEDICAL USE ONLY. CUTOFF CONCENTRATION FOR DETECTED RESULT: THC (MARIJUANA): 50 NG/ML UR BARBITURATE NON DETECTED NON DETECTED 10/24/2024 11:38 AM DEVOPS DEVELOPER [facility] Comment: FOR MEDICAL USE ONLY. CUTOFF CONCENTRATION FOR DETECTED RESULT: BARBITUATES: 200 NG/ML UR FENTANYL NON DETECTED NON DETECTED 10/24/2024 11:38 AM DEVOPS DEVELOPER [facility] Comment: FOR MEDICAL USE ONLY. CUTOFF CONCENTRATION FOR DETECTED RESULT: FENTANYL: 1.0 NG/ML Urine Non-Phlebotomy Collection / Unknown 10/24/2024 11:06 AM DEVOPS DEVELOPER 10/24/2024 11:25 AM DEVOPS DEVELOPER us Denisse Law MD URINE ORDERABLES Final R esult [facility] [address] [place] [address] * Gold Top Tube (10/24/2024 10:58 AM DEVOPS DEVELOPER) Blood No Phlebotomy Charged / Unknown 10/24/2024 10:58 AM DEVOPS DEVELOPER 10/24/2024 11:08 AM DEVOPS DEVELOPER us Denisse Law MD CHEMISTRY ORDERABLES Fin al Result [facility] [address] [place] [address] * Blue Top Tube (10/24/2024 10:58 AM DEVOPS DEVELOPER) Blood No Phlebotomy Charged / Unknown 10/24/2024 10:58 AM DEVOPS DEVELOPER 10/24/2024 11:08 AM DEVOPS DEVELOPER us Denisse Law MD HEMATOLOGY ORDERABLES Fi nal Result Performing Organization Address City/[facility]/ZIP Co de Phone Number [facility] [place] [address] * EKG 12 LEAD (10/24/2024 10:53 AM DEVOPS DEVELOPER) Ventricular Rate 140 BPM EXTERNAL EKG Atrial Rate 140 BPM EXTERNAL EKG P-R Interval 144 ms EXTERNAL EKG QRS Duration 72 ms EXTERNAL EKG Q-T Duration 280 ms EXTERNAL EKG QTC CALCULATION 427 ms EXTERNAL EKG P [place] 36 degrees EXTERNAL EKG R [place] 64 degrees EXTERNAL EKG T [place] 30 degrees EXTERNAL EKG 10/24/2024 10:5 3 AM DEVOPS DEVELOPER Impressions EXTERNAL EKG - 10/28/2024 3:00 PM DEVOPS DEVELOPER Sinus tachycardia Otherwise normal ECG no change since September 29, 2023 Confirmed by Jona Groves ([id number]) on 10/28/2024 3:00:30 PM Narrative Procedure Note Jona Groves MD - 10/28/2024 IMPRESSION: Sinus tachycardia Otherwise normal ECG no change since September 29, 2023 Confirmed by Jona Groves ([id number]) on 10/28/2024 3:00:30 PM us Denisse Law MD IMG ECG ORDERABLES Final Result Performing Organization Address [facility] Co de Phone Number EXTERNAL EKG * EKG SCAN (10/24/2024 12:00 AM DEVOPS DEVELOPER) 10/24/2024 us Provider Scan IMG ECG ORDERABLES Final Result Performing Organization Address City/State/[facility] Co de Phone Number RESULTING AGENCY from Last 3 Months Insurance MEDICAID [place] MEDICARE C [employer] Advance Directives * Full Code (Latest Code Status on File) Date Activated Date Inactivated Comments 02/13/2019 11:52 PM 02/14/2019 3:32 PM CPR-Full Nery tment: FULL ARREST: Attempt Resuscitation/CPR wit intubation and mechanical ventilation. PRE-ARREST: Use entire range of life support measures to stabilize the patient. Care Teams Supervisor Detasseling Crew Relationship Specialty Start Date End Date Kristy Cintron MD [address] [facility] [address] [place] [address] PCP - General Family Medicine 09/29/23
--- OUTSIDE RECORDS SUMMARY | 2025-01-01 12:04 | XMS_ITS | Clinical Summary ---
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 longer eligi ble based on patient's age to complete this topic Goals Goal Patient Goal Type Associated Problems Recent Progress Patient-Stated? Author ACO SW Goal - Patient can identify and utilize mental health community resources ACO Care Management On track(2023 2:15 PM CDT) Charley Claros, EVALUATOR Note: Problem: Mental Health Resources needed Interventions: - Assess for mental health resource needs. - Assess readiness for change. - Provide patient with MH Resource options. - Provide information regarding insurance coverage of specific resources and levels of care. - Follow-up to assess barriers to establishing connection with resources, if applicable. Procedures Procedure Name Priority Date/Time Associated Diagnosis Comments POCT GLUCOSE Routine 11/13/2024 10:18 AM LEHR ATTENDANT Controlled type 2 diabetes mellitus without complication, without long-term current use of insulin (CMS/HCC) (HCC) POCT HEMOGLOBIN A1C Routine 11/13/2024 1 0:18 AM LEHR ATTENDANT Controlled type 2 diabetes mellitus without complication, without long-term current use of insulin (CMS/HCC) (HCC) EGFR Routine 10/21/2024 10:43 AM LEHR ATTENDANT Alcohol use disorder, moderate, dependence (CMS/HCC) (HCC) Chronic liver disease DIFFERENTIAL AUTO Routine 10/21/2024 10: 43 AM LEHR ATTENDANT Pancytopenia (HCC) CBC WITH AUTO DIFFERENTIAL Routine 10/21/2024 10:43 AM LEHR ATTENDANT Pancytopenia (HCC) COMPREHENSIVE METABOLIC PANEL Routine 10/21/2024 10:43 AM LEHR ATTENDANT Alcohol use disorder, moderate, dependence (CMS/HCC) (HCC) Chronic liver disease ELECTROCARDIOGRAM REPORT Routine 024 10:34 AM LEHR ATTENDANT Other chest pain EGFR Routine 10/08/2024 3:38 AM LEHR ATTENDANT DIFFERENTIAL AUTO Routine 10/08/2024 3:3 8 AM LEHR ATTENDANT CREATINE KINASE (CK), TOTAL Routine 10/08/2024 3:38 AM LEHR ATTENDANT MAGNESIUM Routine 10/08/2024 3:38 AM LEHR ATTENDANT COMPREHENSIVE METABOLIC PANEL Routine 10/08/2024 3:38 AM LEHR ATTENDANT CBC WITH AUTO DIFFERENTIAL Routine 10/08/2024 3:38 AM LEHR ATTENDANT EGFR Routine 10/07/2024 4:39 AM LEHR ATTENDANT DIFFERENTIAL AUTO Routine 10/07/2024 4:3 9 AM LEHR ATTENDANT CREATINE KINASE (CK), TOTAL Routine 10/07/2024 4:39 AM LEHR ATTENDANT MAGNESIUM Routine 10/07/2024 4:39 AM LEHR ATTENDANT COMPREHENSIVE METABOLIC PANEL Routine 10/07/2024 4:39 AM LEHR ATTENDANT CBC WITH AUTO DIFFERENTIAL Routine 10/07/2024 4:39 AM LEHR ATTENDANT SLIDE REVIEW - PATHOLOGIST Routine 10/06/2024 2:15 PM LEHR ATTENDANT RETICULOCYTES Routine 10/06/2024 2:15 PM LEHR ATTENDANT FERRITIN Routine 10/06/2024 2:15 PM LEHR ATTENDANT IRON PROFILE W/ IBC Routine 10/06/2024 2 :15 PM LEHR ATTENDANT FOLATE Routine 10/06/2024 2:15 PM LEHR ATTENDANT VITAMIN B12 Routine 10/06/2024 2:15 PM LEHR ATTENDANT CLINICAL PATHOLOGY REPORT Routine 10/06/2024 8:05 AM LEHR ATTENDANT EGFR Routine 10/06/2024 4:05 AM LEHR ATTENDANT DIFFERENTIAL AUTO Routine 10/06/2024 4:0 5 AM LEHR ATTENDANT PHOSPHORUS Routine 10/06/2024 4:05 AM LEHR ATTENDANT CREATINE KINASE (CK), TOTAL Routine 10/06/2024 4:05 AM LEHR ATTENDANT MAGNESIUM Routine 10/06/2024 4:05 AM LEHR ATTENDANT COMPREHENSIVE METABOLIC PANEL Routine 10/06/2024 4:05 AM LEHR ATTENDANT CBC WITH AUTO DIFFERENTIAL Routine 10/06/2024 4:05 AM LEHR ATTENDANT XR SPINE LUMBAR 2 OR 3 VIEWS IP Routine 10/06/2024 3:58 AM LEHR ATTENDANT EGFR Routine 10/05/2024 8:45 AM LEHR ATTENDANT PHOSPHORUS Routine 10/05/2024 8:45 AM LEHR ATTENDANT CREATINE KINASE (CK), TOTAL Routine 10/05/2024 8:45 AM LEHR ATTENDANT BASIC METABOLIC PANEL Routine 10/05/2024 8:45 AM LEHR ATTENDANT DRUGS OF ABUSE SCREEN, URINE WITHOUT CONFIRMATION STAT 10/05/2024 8:36 AM LEHR ATTENDANT URINALYSIS AND REFLEX TO MICROSCOPIC AND CULTURE Routine 10/05/2024 8:36 AM LEHR ATTENDANT CREATINE KINASE (CK), TOTAL Routine 10/05/2024 4:30 AM LEHR ATTENDANT EGFR Routine 10/05/2024 12:03 AM LEHR ATTENDANT DIFFERENTIAL AUTO Routine 10/05/2024 12: 03 AM LEHR ATTENDANT CREATINE KINASE (CK), TOTAL Routine 10/05/2024 12:03 AM LEHR ATTENDANT MAGNESIUM Routine 10/05/2024 12:03 AM LEHR ATTENDANT COMPREHENSIVE METABOLIC PANEL Routine 10/05/2024 12:03 AM LEHR ATTENDANT CBC WITH AUTO DIFFERENTIAL Routine 10/05/2024 12:03 AM LEHR ATTENDANT TROPONIN T HIGH-SENSITIVITY 6-HOUR Timed 10/05/2024 12:03 AM LEHR ATTENDANT DC CRITICAL CARE ILL/INJURED PATIENT INIT 30-74 MIN Routine 10/04/2024 7:55 PM LEHR ATTENDANT XR CHEST 1 VIEW ED 10/04/2024 7:11 PM LEHR ATTENDANT SALICYLATE LEVEL Add-On 10/04/2024 6:06 PM LEHR ATTENDANT EGFR STAT 10/04/2024 6:06 PM LEHR ATTENDANT DIFFERENTIAL AUTO STAT 10/04/2024 6:0 6 PM LEHR ATTENDANT TROPONIN T HIGH-SENSITIVITY SERIES (BASELINE, 2HR, 4HR, 6HR) STAT 10/04/2024 6:06 PM LEHR ATTENDANT CREATINE KINASE (CK), TOTAL STAT 10/04/2024 6:06 PM LEHR ATTENDANT PRO B-TYPE NATRIURETIC PEPTIDE STAT 10/04/2024 6:06 PM LEHR ATTENDANT MAGNESIUM Routine 10/04/2024 6:06 PM LEHR ATTENDANT APTT STAT 10/04/2024 6:06 PM LEHR ATTENDANT PROTIME-INR STAT 10/04/2024 6:06 PM LEHR ATTENDANT ACETAMINOPHEN LEVEL STAT 10/04/2024 6 :06 PM LEHR ATTENDANT ETHANOL STAT 10/04/2024 6:06 PM LEHR ATTENDANT LIPASE STAT 10/04/2024 6:06 PM LEHR ATTENDANT COMPREHENSIVE METABOLIC PANEL STAT 10/04/2024 6:06 PM LEHR ATTENDANT CBC WITH AUTO DIFFERENTIAL STAT 10/04/2024 6:06 PM LEHR ATTENDANT ECG 12-LEAD Routine 10/04/2024 5:55 PM LEHR ATTENDANT DIABETIC EYE EXAM Routine 03/11/2024 LIPID PANEL Routine 03/03/2024 10:15 AM CDT Hyperlipidemia associated with type 2 diabetes mellitus (HCC) ALBUMIN CREATININE RATIO, URINE Routine 03/03/2024 10:15 AM CDT Controlled type 2 diabetes mellitus without complication, without long-term current use of insulin (CMS/HCC) (HCC) HEPATITIS PANEL, ACUTE Routine 10:59 AM CDT Abnormal liver enzymes Alcohol use disorder, moderate, dependence (CMS/HCC) (HCC) Generalized abdominal pain Hematemesis with nausea Hematochezia from Last 3 Months or Most Recently Relevant to Health Maintenance Results * POCT hemoglobin A1c (11/13/2024 10:18 AM LEHR ATTENDANT) Pathologist [facility] Hemoglobin A1C, POC 4.5 4.0 - 5.6 % Comment:None Capillary blood 11/13/2024 1 0:18 AM LEHR ATTENDANT Result Regla Weiss MD POINT OF CARE TEST ORDERABLES Fi nal Result * POCT glucose (11/13/2024 10:18 AM LEHR ATTENDANT) Pathologist [facility] Glucose Blood, POC 102 mg/dL Comment:None Blood 11/13/2024 10:1 8 AM LEHR ATTENDANT Result Regla Weiss MD POINT OF CARE TEST ORDERABLES Fi nal Result * eGFR (10/21/2024 10:43 AM LEHR ATTENDANT) eGFR >90 >=60 mL/min/1. 73 m2 Comment: Interpretive Data Reference Interval Normal >/= 90 mL/min/1.73m2 Mildly decreased* 60 - 89 mL/min/1.73m2 Mildly to moderately decreased 45 - 59 mL/min/1.73m2 Moderately to severely decreased 30 - 44 mL/min/1.73m2 Severely decreased 15 - 29 mL/min/1.73m2 Kidney Failure < 15 mL/min/1.73m2 *Relative to young adult level Estimated glomerular filtration rate is determined by the 2020 CKD-EPI equation recommended by the National Kidney Foundation (A Unifying Approach to GFR Estimation: Recommendations of the NKF-ASK Task Force on Reassessing the Inclusion of Race in Diagnosing Kidney Disease, JASN 2020). The CKD-EPI equation should not be used for patients with unstable renal function and has not been validated in children and those over 70. Current interpretive data was last reviewed 2021. Blood 10/21/2024 10:4 3 AM LEHR ATTENDANT 10/21/2024 4:50 PM LEHR ATTENDANT us Titus ALMENDAREZ LAB BLOOD ORDERABLES Final R esult [facility] [id number] Department [place] [address] * Differential, auto (10/21/2024 10:43 AM LEHR ATTENDANT) Pathologist [facility] Neutrophil abs 3.4 1.5 - 6.5 K/cumm Imm gran abs 0.0 0.0 - 0.1 K/cumm [facility] Lymphocyte abs 2.4 0.8 - 3.3 K/cumm [facility] Monocyte abs 0.7 0.2 - 0.8 K/cumm [facility] Eosinophil abs 0.0 0.0 - 0.5 K/cumm [facility] Basophil abs 0.0 0.0 - 0.1 K/cumm [facility] Neutrophil pct 51.3 % [facility] Comment: Interpretive Data Percent cell count reference ranges are not reported, since discordance with absolute values may lead to misinterpretation of CBC data. Current Interpretive Data was last revised on 2018. Imm gran pct 0.5 % [facility] Comment: Interpretive Data Percent cell count reference ranges are not reported, since discordance with absolute values may lead to misinterpretation of CBC data. Current Interpretive Data was last revised on 2018. Lymphocyte pct 36.6 % [facility] Comment: Interpretive Data Percent cell count reference ranges are not reported, since discordance with absolute values may lead to misinterpretation of CBC data. Current Interpretive Data was last revised on 2018. Monocyte pct 10.8 % [facility] Comment: Interpretive Data Percent cell count reference ranges are not reported, since discordance with absolute values may lead to misinterpretation of CBC data. Current Interpretive Data was last revised on 2018. Eosinophil pct 0.6 % [facility] Comment: Interpretive Data Percent cell count reference ranges are not reported, since discordance with absolute values may lead to misinterpretation of CBC data. Current Interpretive Data was last revised on 2018. Basophil pct 0.2 % [facility] Comment: Interpretive Data Percent cell count reference ranges are not reported, since discordance with absolute values may lead to misinterpretation of CBC data. Current Interpretive Data was last revised on 2018. Blood 10/21/2024 10:4 3 AM LEHR ATTENDANT 10/21/2024 4:35 PM LEHR ATTENDANT us Titus ALMENDAREZ LAB BLOOD ORDERABLES Final R esult [facility] [id number] Department [place] [address] * (ABNORMAL) CBC with auto differential (10/21/2024 10:43 AM LEHR ATTENDANT) WBC 6.7 3.8 - 9.9 K/cumm Hgb 14.8 13.0 - 17.5 g/dL [facility] Hct 45.4 38.9 - 50.3 % [facility] Plt 141(L) 150 - 400 K/cumm [facility] MPV 11.3 9.1 - 12.3 fL [facility] RBC 4.69 4.30 - 5.80 M/cumm [facility] MCV 96.8(H) 81.3 - 96.4 fL [facility] MCH 31.6 27.1 - 33.3 pg [facility] MCHC 32.6 32.3 - 35.7 g/dL [facility] RDW CV 13.8 11.1 - 14.9 % [facility] RDW SD 49.1(H) 35.7 - 48.1 fL [facility] NRBC abs 0.00 0.00 - 0.01 K/cumm [facility] Blood 10/21/2024 10:4 3 AM LEHR ATTENDANT 10/21/2024 4:35 PM LEHR ATTENDANT us Titus ALMENDAREZ LAB BLOOD [place] [id number] [address] Department [place] [address] * (ABNORMAL) Comprehensive metabolic panel (10/21/2024 10:43 AM LEHR ATTENDANT) Sodium 143 135 - 145 mmol/L Potassium, pl 3.7 3.3 - 4.9 mmol/L [facility] Chloride 103 97 - 110 mmol/L [facility] CO2 23 22 - 32 mmol/L [facility] Anion gap 17(H) 2 - 15 mmol/L [facility] BUN 9 6 - 25 mg/dL [facility] Creatinine 0.96 0.80 - 1.30 mg/dL [facility] Glucose 86 70 - 199 mg/dL [facility] Comment: Interpretive Data Fasting glucose >/= 126 mg/dl is diagnostic for diabetes. Fasting is defined as no caloric intake for at least 8 hours. Fasting glucose between 100 mg/dl to 125 mg/dl is diagnostic of prediabetes. In a patient with classic symptoms of hyperglycemia or hyperglycemic crisis, a random glucose >/= 200 mg/dl is diagnostic for diabetes. In the absence of unequivocal hyperglycemia, results should be confirmed by repeat testing. The classification and Diagnosis of Diabetes Diabetes Care 2021; 46: S19-S40. Current interpretive data was last revised 2022. Calcium 9.1 8.5 - 10.3 mg/dL [facility] Bilirubin, total 0.5 0.1 - 1.2 mg/dL [facility] Protein, pl 7.8 6.5 - 8.5 g/dL [facility] Albumin 4.8 3.5 - 5.0 g/dL [facility] Alk phos 145(H) 40 - 130 Units/L [facility] ALT 64(H) 7 - 55 Units/L [facility] AST 61(H) 10 - 50 Units/L [facility] Blood 10/21/2024 10:4 3 AM LEHR ATTENDANT 10/21/2024 4:35 PM LEHR ATTENDANT us Titus ALMENDAREZ LAB BLOOD ORDERABLES Final R esult [facility] [id number] Department [place] [address] * (ABNORMAL) EKG 12 lead office performed (10/21/2024 10:34 AM LEHR ATTENDANT) Narrative Angy Mckeon MA - 10/21/2024 10:34 AM LEHR ATTENDANT Titus Ferreira PA 10/21/2024 10:35 AM EKG 12 lead office performed Date/Time: 10/21/2024 10:34 AM Performed by: Titus Ferreira PA Authorized by: Titus Ferreira PA Compared with previous ECG: Yes Similar to previous ECG Rhythm: sinus tachycardia Rate: tachycardic QRS axis: Normal Conduction: Normal ST Segment: Normal T Wave: Normal Clinical impression: abnormal ECG Procedure Note Titus Ferreira PA - 10/21/2024 9:30 AM CST EKG 12 lead office performed Date/Time: 10/21/2024 10:34 AM Performed by: Titus Ferreira PA Authorized by: Titus Ferreira PA Compared with previous ECG: Yes Similar to previous ECG Rhythm: sinus tachycardia Rate: tachycardic QRS axis: Normal Conduction: Normal ST Segment: Normal T Wave: Normal Clinical impression: abnormal ECG us Titus ALMENDAREZ ECG ORDERABLES Final Result * eGFR (10/08/2024 3:38 AM LEHR ATTENDANT) eGFR >90 >=60 mL/min/1. 73 m2 Comment: Interpretive Data Reference Interval Normal >/= 90 mL/min/1.73m2 Mildly decreased* 60 - 89 mL/min/1.73m2 Mildly to moderately decreased 45 - 59 mL/min/1.73m2 Moderately to severely decreased 30 - 44 mL/min/1.73m2 Severely decreased 15 - 29 mL/min/1.73m2 Kidney Failure < 15 mL/min/1.73m2 *Relative to young adult level Estimated glomerular filtration rate is determined by the 2020 CKD-EPI equation recommended by the National Kidney Foundation (A Unifying Approach to GFR Estimation: Recommendations of the NKF-ASK Task Force on Reassessing the Inclusion of Race in Diagnosing Kidney Disease, JASN 2020). The CKD-EPI equation should not be used for patients with unstable renal function and has not been validated in children and those over 70. Current interpretive data was last reviewed 2021. Blood 10/08/2024 3:38 AM LEHR ATTENDANT 10/08/2024 4:16 AM LEHR ATTENDANT us Graeme Ficnh MD LAB BLOOD ORDERABLES Final Resu lt [facility] Department [place] [address] * Differential, auto (10/08/2024 3:38 AM LEHR ATTENDANT) Pathologist [facility] Neutrophil abs 2.5 1.5 - 6.5 K/cumm Imm gran abs 0.0 0.0 - 0.1 K/cumm [facility] ([place]) Lymphocyte abs 1.3 0.8 - 3.3 K/cumm [facility] ([place]) Monocyte abs 0.4 0.2 - 0.8 K/cumm [facility] ([place]) Eosinophil abs 0.1 0.0 - 0.5 K/cumm [facility] ([place]) Basophil abs 0.0 0.0 - 0.1 K/cumm [facility] ([place]) Neutrophil pct 58.0 % [facility] ([place] Comment: Interpretive Data Percent cell count reference ranges are not reported, since discordance with absolute values may lead to misinterpretation of CBC data. Current Interpretive Data was last revised on 2018. Imm gran pct 0.5 % [facility] ([place]) Comment: Interpretive Data Percent cell count reference ranges are not reported, since discordance with absolute values may lead to misinterpretation of CBC data. Current Interpretive Data was last revised on 2018. Lymphocyte pct 30.6 % [facility] ([place] Comment: Interpretive Data Percent cell count reference ranges are not reported, since discordance with absolute values may lead to misinterpretation of CBC data. Current Interpretive Data was last revised on 2018. Monocyte pct 9.7 % [facility] ([place]) Comment: Interpretive Data Percent cell count reference ranges are not reported, since discordance with absolute values may lead to misinterpretation of CBC data. Current Interpretive Data was last revised on 2018. Eosinophil pct 1.2 % [facility] ([place] Comment: Interpretive Data Percent cell count reference ranges are not reported, since discordance with absolute values may lead to misinterpretation of CBC data. Current Interpretive Data was last revised on 2018. Basophil pct 0.0 % [facility] ([place] Comment: Interpretive Data Percent cell count reference ranges are not reported, since discordance with absolute values may lead to misinterpretation of CBC data. Current Interpretive Data was last revised on 2018. Blood 10/08/2024 3:38 AM LEHR ATTENDANT 10/08/2024 4:16 AM LEHR ATTENDANT us Graeme Finch MD LAB BLOOD ORDERABLES Final Resu lt [facility] ([place] Department of Laboratories [place], [place] [id number] * (ABNORMAL) CBC with auto differential (10/08/2024 3:38 AM LEHR ATTENDANT) WBC 4.2 3.8 - 9.9 K/cumm Hgb 13.2 13.0 - 17.5 g/dL [facility] ([place]) Hct 38.4(L) 38.9 - 50.3 % [facility] ([place]) Plt 99(L) 150 - 400 K/cumm [facility] ([place]) MPV 10.4 9.1 - 12.3 fL [facility] ([place]) RBC 4.10(L) 4.30 - 5.80 M/cumm [facility] ([place]) MCV 93.7 81.3 - 96.4 fL [facility] ([place] MCH 32.2 27.1 - 33.3 pg [facility] MCHC 34.4 32.3 - 35.7 g/dL [facility] ([place]) RDW CV 14.2 11.1 - 14.9 % [facility] ([place] RDW SD 47.3 35.7 - 48.1 fL [facility] ([place]) NRBC abs 0.00 0.00 - 0.01 K/cumm [facility] ([place]) Blood 10/08/2024 3:38 AM LEHR ATTENDANT 10/08/2024 4:16 AM LEHR ATTENDANT Graeme Finch MD LAB BLOOD ORDERABLES Final Resu lt [facility] ([place] [place] [address] * Magnesium (10/08/2024 3:38 AM LEHR ATTENDANT) Magnesium 1.7 1.4 - 2.5 mg/dL Blood 10/08/2024 3:38 AM LEHR ATTENDANT 10/08/2024 4:16 AM LEHR ATTENDANT Graeme Finch MD LAB BLOOD ORDERABLES Final Resu lt [facility] ([place] [place] [address] * Creatine kinase (CK), total (10/08/2024 3:38 AM LEHR ATTENDANT) CK 87 40 - 300 Units/L Blood 10/08/2024 3:38 AM LEHR ATTENDANT 10/08/2024 4:16 AM LEHR ATTENDANT us Aniya Bhakta MD LAB BLOOD ORDERABLES Fin al Result [facility] ([place] Department [place] [address] * (ABNORMAL) Comprehensive metabolic panel (10/08/2024 3:38 AM LEHR ATTENDANT) Sodium 143 135 - 145 mmol/L Potassium, pl 3.7 3.3 - 4.9 mmol/L [facility] Chloride 104 97 - 110 mmol/L [facility]) CO2 28 22 - 32 mmol/L [facility] ([place]) Anion gap 11 2 - 15 mmol/L [facility] ([place]) BUN 10 6 - 25 mg/dL [facility]) Creatinine 0.84 0.80 - 1.30 mg/dL [facility] ([place]) Glucose 71 70 - 199 mg/dL [facility] ([place] Comment: Interpretive Data Fasting glucose >/= 126 mg/dl is diagnostic for diabetes. Fasting is defined as no caloric intake for at least 8 hours. Fasting glucose between 100 mg/dl to 125 mg/dl is diagnostic of prediabetes. In a patient with classic symptoms of hyperglycemia or hyperglycemic crisis, a random glucose >/= 200 mg/dl is diagnostic for diabetes. In the absence of unequivocal hyperglycemia, results should be confirmed by repeat testing. The classification and Diagnosis of Diabetes Diabetes Care 202; 46: S19-S40. Current interpretive data was last revised 2022. Calcium 9.2 8.5 - 10.3 mg/dL [facility] Bilirubin, total 0.9 0.1 - 1.2 mg/dL [facility] ([place]) Protein, pl 6.7 6.5 - 8.5 g/dL [facility] ([place]) Albumin 4.2 3.5 - 5.0 g/dL [facility] ([place]) Alk phos 187(H) 40 - 130 Units/L [facility] ([place]) ALT 49 7 - 55 Units/L [facility] ([place]) AST 55(H) 10 - 50 Units/L [facility] ([place]) Blood 10/08/2024 3:38 AM LEHR ATTENDANT 10/08/2024 4:16 AM LEHR ATTENDANT Graeme Finch MD LAB BLOOD ORDERABLES Final Resu lt [facility] ([place] [place] [address] * eGFR (10/07/2024 4:39 AM LEHR ATTENDANT) eGFR >90 >=60 mL/min/1. 73 m2 Comment: Interpretive Data Reference Interval Normal >/= 90 mL/min/1.73m2 Mildly decreased* 60 - 89 mL/min/1.73m2 Mildly to moderately decreased 45 - 59 mL/min/1.73m2 Moderately to severely decreased 30 - 44 mL/min/1.73m2 Severely decreased 15 - 29 mL/min/1.73m2 Kidney Failure < 15 mL/min/1.73m2 *Relative to young adult level Estimated glomerular filtration rate is determined by the 2020 CKD-EPI equation recommended by the National Kidney Foundation (A Unifying Approach to GFR Estimation: Recommendations of the NKF-ASK Task Force on Reassessing the Inclusion of Race in Diagnosing Kidney Disease, JASN 2020). The CKD-EPI equation should not be used for patients with unstable renal function and has not been validated in children and those over 70. Current interpretive data was last reviewed 2021. Blood 10/07/2024 4:39 AM LEHR ATTENDANT 10/07/2024 5:31 AM LEHR ATTENDANT Graeme Finch MD LAB BLOOD ORDERABLES Final Resu lt [facility] ([place] 1 [facility] Department [place] [address] * Differential, auto (10/07/2024 4:39 AM LEHR ATTENDANT) Neutrophil abs 2.0 1.5 - 6.5 K/cumm Imm gran abs 0.0 0.0 - 0.1 K/cumm [facility] ([place]) Lymphocyte abs 1.1 0.8 - 3.3 K/cumm [facility] ([place]) Monocyte abs 0.3 0.2 - 0.8 K/cumm [facility] ([place]) Eosinophil abs 0.0 0.0 - 0.5 K/cumm [facility] ([place]) Basophil abs 0.0 0.0 - 0.1 K/cumm [facility] ([place]) Neutrophil pct 57.8 % [facility] Comment: Interpretive Data Percent cell count reference ranges are not reported, since discordance with absolute values may lead to misinterpretation of CBC data. Current Interpretive Data was last revised on 2018. Imm gran pct 0.3 % [facility] ([place] Comment: Interpretive Data Percent cell count reference ranges are not reported, since discordance with absolute values may lead to misinterpretation of CBC data. Current Interpretive Data was last revised on 2018. Lymphocyte pct 33.3 % [facility] ([place] Comment: Interpretive Data Percent cell count reference ranges are not reported, since discordance with absolute values may lead to misinterpretation of CBC data. Current Interpretive Data was last revised on 2018. Monocyte pct 7.7 % [facility] ([place] Comment: Interpretive Data Percent cell count reference ranges are not reported, since discordance with absolute values may lead to misinterpretation of CBC data. Current Interpretive Data was last revised on 2018. Eosinophil pct 0.9 % [facility] ([place] Comment: Interpretive Data Percent cell count reference ranges are not reported, since discordance with absolute values may lead to misinterpretation of CBC data. Current Interpretive Data was last revised on 2018. Basophil pct 0.0 % [facility] ([place] Comment: Interpretive Data Percent cell count reference ranges are not reported, since discordance with absolute values may lead to misinterpretation of CBC data. Current Interpretive Data was last revised on 2018. Blood 10/07/2024 4:39 AM LEHR ATTENDANT 10/07/2024 5:30 AM LEHR ATTENDANT us Graeme Finch MD LAB BLOOD ORDERABLES Final Resu lt [facility] ([place]) [facility] [place] [address] * (ABNORMAL) CBC with auto differential (10/07/2024 4:39 AM LEHR ATTENDANT) WBC 3.4(L) 3.8 - 9.9 K/cumm Hgb 12.4(L) 13.0 - 17.5 g/dL [facility] ([place] Hct 36.0(L) 38.9 - 50.3 % [facility] ([place] Plt 90(L) 150 - 400 K/cumm [facility] ([place]) MPV 10.4 9.1 - 12.3 fL [facility] ([place] RBC 3.87(L) 4.30 - 5.80 M/cumm [facility] ([place]) MCV 93.0 81.3 - 96.4 fL [facility] ([place]) MCH 32.0 27.1 - 33.3 pg [facility] ([place]) MCHC 34.4 32.3 - 35.7 g/dL [facility] ([place]) RDW CV 14.0 11.1 - 14.9 % [facility] ([place]) RDW SD 47.3 35.7 - 48.1 fL [facility] ([place]) NRBC abs 0.00 0.00 - 0.01 K/cumm [facility] ([place]) Blood 10/07/2024 4:39 AM LEHR ATTENDANT 10/07/2024 5:30 AM LEHR ATTENDANT us Graeme Finch MD LAB BLOOD ORDERABLES Final Resu lt HIRAL WATSON ([place]AN[place]) 1 [facility] [place] [address] * Magnesium (10/07/2024 4:39 AM LEHR ATTENDANT) Magnesium 1.7 1.4 - 2.5 mg/dL Blood 10/07/2024 4:39 AM LEHR ATTENDANT 10/07/2024 5:31 AM LEHR ATTENDANT us Graeme Finch MD LAB BLOOD ORDERABLES Final Resu lt HIRAL WATSON ([place]) 1 [facility] [place] [address] * Creatine kinase (CK), total (10/07/2024 4:39 AM LEHR ATTENDANT) CK 167 40 - 300 Units/L Blood 10/07/2024 4:3 9 AM LEHR ATTENDANT 10/07/2024 5:31 AM LEHR ATTENDANT us Aniya Bhakta MD LAB BLOOD ORDERABLES Fin al Result Performing Organization Address [facility]/ZIP Co de Phone Number HIRAL WATSON ([place]) 1 [facility] [place] [address] * (ABNORMAL) Comprehensive metabolic panel (10/07/2024 4:39 AM LEHR ATTENDANT) Sodium 140 135 - 145 mmol/L Potassium, pl 3.7 3.3 - 4.9 mmol/L [facility] ([place]) Chloride 105 97 - 110 mmol/L [facility] ([place]) CO2 26 22 - 32 mmol/L [facility] ([place]) Anion gap 9 2 - 15 mmol/L [facility] ([place]) BUN 8 6 - 25 mg/dL [facility] ([place]) Creatinine 0.81 0.80 - 1.30 mg/dL [facility] ([place]) Glucose 83 70 - 199 mg/dL [facility] ([place]) Comment: Interpretive Data Fasting glucose >/= 126 mg/dl is diagnostic for diabetes. Fasting is defined as no caloric intake for at least 8 hours. Fasting glucose between 100 mg/dl to 125 mg/dl is diagnostic of prediabetes. In a patient with classic symptoms of hyperglycemia or hyperglycemic crisis, a random glucose >/= 200 mg/dl is diagnostic for diabetes. In the absence of unequivocal hyperglycemia, results should be confirmed by repeat testing. The classification and Diagnosis of Diabetes Diabetes Care 2021; 46: S19-S40. Current interpretive data was last revised 2022. Calcium 9.0 8.5 - 10.3 mg/dL [facility] ([place]) Bilirubin, total 0.9 0.1 - 1.2 mg/dL [facility] ([place]) Protein, pl 6.2(L) 6.5 - 8.5 g/dL [facility] ([place]) Albumin 4.0 3.5 - 5.0 g/dL [facility] ([place]) Alk phos 180(H) 40 - 130 Units/L [facility] ([place]) ALT 49 7 - 55 Units/L [facility] ([place]) AST 72(H) 10 - 50 Units/L [facility] ([place]) Comment:Slightly Hemolyzed S pecimen Blood 10/07/2024 4:39 AM LEHR ATTENDANT 10/07/2024 5:31 AM LEHR ATTENDANT us Graeme Finch MD LAB BLOOD ORDERABLES Final Resu lt Performing Organization Address City/[facility]/ZIP Co de Phone Number [facility]pyder ([place]) 1 [facility] [place] [address] * Slide review - pathologist (10/06/2024 2:15 PM LEHR ATTENDANT) Slide review by See comment Comment: Slide reviewed by Dr. Scott on 10/07/24. Please see pathology report in [facility] for results. Interpretive Data See Clinical Pathology Report under Media section in [facility]. Current Interpretive Data was last revised on 2018. Blood 10/06/2024 2:15 PM LEHR ATTENDANT 10/06/2024 2:26 PM LEHR ATTENDANT us Karla Torres MD LAB BLOOD ORDERABLES Cici l Result Performing Organization Address City/[facility]/ZIP Co de Phone Number [facility] ([place]) 1 [facility] [place] [address] * (ABNORMAL) Iron profile w/ IBC (10/06/2024 2:15 PM LEHR ATTENDANT) Iron 75 50 - 150 mcg/dL TIBC 245(L) 250 - 400 mcg/dL [facility] ([place]) Transferrin saturation 31 20 - 50 % [facility] ([place]) Blood 10/06/2024 2:15 PM LEHR ATTENDANT 10/06/2024 2:26 PM LEHR ATTENDANT Karla Torres MD LAB BLOOD ORDERABLES Cici l Result [facility] ([place]) 1 [facility] [place] [address] * (ABNORMAL) Reticulocyte Count (10/06/2024 2:15 PM LEHR ATTENDANT) Pathologist [facility] Retics, absolute 0.088(H) 0.020 - 0.087 M/cumm Retics 2.3 0.4 - 2.9 % [facility] ([place]) Reticulocyte Hgb 39.2(H) 30.5 - 38.0 pg [facility] ([place]) Blood 10/06/2024 2:15 PM LEHR ATTENDANT 10/06/2024 2:26 PM LEHR ATTENDANT us Karla Torres MD LAB BLOOD ORDERABLES Cici l Result Performing Organization Address [facility] Co de Phone Number [facility] ([place]) 1 [facility] [place] [address] * Folate (10/06/2024 2:15 PM LEHR ATTENDANT) Pathologist [facility] Folic acid 16.8 >=5.0 ng/mL Comment:Slightly Hemolyzed S pecimen. Results may be affected. Blood 10/06/2024 2:15 PM LEHR ATTENDANT 10/06/2024 2:26 PM LEHR ATTENDANT Karla Torres MD LAB BLOOD ORDERABLES Cici l Result HIRAL WATSON ([place]) 1 [facility] [place] [address] * Ferritin (10/06/2024 2:15 PM LEHR ATTENDANT) Ferritin 221 30 - 400 ng/mL Blood 10/06/2024 2:15 PM LEHR ATTENDANT 10/06/2024 2:26 PM LEHR ATTENDANT Karla Torres MD LAB BLOOD ORDERABLES Cici l Result Performing Organization Address City/[facility]/ZIP Co de Phone Number HIRAL WATSON ([place]) 1 [place] [address] * Vitamin B12 (10/06/2024 2:15 PM LEHR ATTENDANT) Vitamin B12 321 230 - 1,250 pg/mL Blood 10/06/2024 2:15 PM LEHR ATTENDANT 10/06/2024 2:26 PM LEHR ATTENDANT Karla Torres MD LAB BLOOD ORDERABLES Cici l Result Performing Organization Address City/[facility] Co de Phone Number HIRAL WATSON ([place]) 1 [facility] Department [place] [address] * Clinical pathology report (10/06/2024 8:05 AM LEHR ATTENDANT) Miscellaneous 10/06/2024 8:0 5 AM LEHR ATTENDANT 10/07/2024 8:05 AM LEHR ATTENDANT Narrative 10/07/2024 1:32 PM LEHR ATTENDANT EPIC results best viewed via link to PDF [facility] [employer] [facility] Department of Pathology [address] [place] [id number] Final Report Note to Patients: This report may contain a detailed description of human tissue sent by a health care provider to the laboratory for pathologic evaluation. The content of this report is essential for diagnosis and may provide important critical findings. This information may be unfamiliar to patients to review without a medical professional present. It is advised that the patient review this report in the presence of a health care provider who can answer questions and explain the details. Patient Name: MANJINDER ROSALES Address: [address] [place] [address] Gender: M : 1990 (Age: 34) Service: Medical Location: [facility] Hospital #: [id number] Patient Type: [facility] Taken: 10/06/2024 Received: 10/07/2024 Accessioned: 10/07/2024 Physician(s): Karla Torres MD Specimen(s) Received A: Blood Peripheral Blood Smear ReviewReported:10/07/2024 A peripheral blood smear is reviewed in conjunction with a CBC dated 10/06/24: WBC 2.65, RBC 3.94, Hgb 12.7, HCT 37.2, MCV 94.4, MCHC 34.1, PLT 87, RDW-CV 14.2%. A peripheral blood manual differential on 200 cells shows: neutrophils 56%, lymphocytes 37%, monocytes 5%, eosinophils 2%. Red blood cells are decreased in number and normocytic,. There is minimal anisopoikilocytosis. Nucleated red blood cells are not present (0/100 WBCs). Platelets are decreased in number with normal size and granularity. White blood cells are decreased in number with an appropriate mixture of neutrophils, lymphocytes, and monocytes. Neutrophils exhibit appropriate nuclear segmentation and granularity. Lymphocytes and monocytes are morphologically unremarkable. Interpretation: Peripheral blood, manual smear review: - Pancytopenia. - See comment. COMMENT: The patient's pancytopenia is confirmed. There are no morphologic findings to strongly support a specific etiology. An oncology medicine consult note dated 10/07/24 is reviewed and the clinical impression of multifactorial pancytopenia is noted as is the clinical impression that the findings are likely in part medication-induced. Recommend follow-up as clinically indicated. Eddie Scott MDReport Electronically Reviewed and Signed Out By Eddie Scott MD 10/07/2024 13:31:16 The performance characteristics of some immunohistochemical stains, fluorescence in-situ hybridization tests and immunophenotyping by flow cytometry cited in this report (if any) were determined by the Surgical Pathology Department at [facility] as part of an ongoing water quality control engineer program and in compliance with federally mandated regulations drawn from the Clinical Laboratory Improvement Act of 1988 (CLIA '88). Some of these tests rely on the use of analyte specific reagents and are subject to specific labeling requirements by the US Food and Drug Administration. Such diagnostic tests may only be performed in a facility that is certified by the Department of Health and Human Services as a high complexity laboratory under CLIA '88. The FDA has determined that such clearance or approval is not necessary. This test is used for clinical purposes. It should not be regarded as investigational or for research. Nevertheless, federal rules concerning the medical use of analyte specific reagents require that the following disclaimer be attached to the report: This test was developed and its performance characteristics determined by the Surgical Pathology Department [facility]. It has not been cleared or approved by the U. S. Food and Drug Administration. REPORT IMAGES AND SCANNED DOCUMENTS, IF INCLUDED, ONLY VIEWABLE IN PDF VERSION OF REPORTe o Karla Torres MD LAB PATHOLOGY ORDERABLES Final Result * eGFR (10/06/2024 4:05 AM LEHR ATTENDANT) eGFR >90 >=60 mL/min/1. 73 m2 Comment: Interpretive Data Reference Interval Normal >/= 90 mL/min/1.73m2 Mildly decreased* 60 - 89 mL/min/1.73m2 Mildly to moderately decreased 45 - 59 mL/min/1.73m2 Moderately to severely decreased 30 - 44 mL/min/1.73m2 Severely decreased 15 - 29 mL/min/1.73m2 Kidney Failure < 15 mL/min/1.73m2 *Relative to young adult level Estimated glomerular filtration rate is determined by the 2020 CKD-EPI equation recommended by the National Kidney Foundation (A Unifying Approach to GFR Estimation: Recommendations of the NKF-ASK Task Force on Reassessing the Inclusion of Race in Diagnosing Kidney Disease, JASN 2020). The CKD-EPI equation should not be used for patients with unstable renal function and has not been validated in children and those over 70. Current interpretive data was last reviewed 2021. Blood 10/06/2024 4:05 AM LEHR ATTENDANT 10/06/2024 4:37 AM LEHR ATTENDANT us Graeme Finch MD LAB BLOOD ORDERABLES Final Resu lt HIRAL WATSON ([place]) 1 [facility] Department of Laboratories [place], [place] [id number] * (ABNORMAL) Differential, auto (10/06/2024 4:05 AM LEHR ATTENDANT) Neutrophil abs 1.4(L) 1.5 - 6.5 K/cumm Imm gran abs 0.0 0.0 - 0.1 K/cumm [facility] ([place]) Lymphocyte abs 0.9 0.8 - 3.3 K/cumm [facility] ([place]) Monocyte abs 0.3 0.2 - 0.8 K/cumm [facility] ([place]) Eosinophil abs 0.1 0.0 - 0.5 K/cumm [facility] ([place]) Basophil abs 0.0 0.0 - 0.1 K/cumm [facility] ([place]) Neutrophil pct 52.8 % [facility] ([place]) Comment: Interpretive Data Percent cell count reference ranges are not reported, since discordance with absolute values may lead to misinterpretation of CBC data. Current Interpretive Data was last revised on 2018. Imm gran pct 0.4 % [facility] ([place]) Comment: Interpretive Data Percent cell count reference ranges are not reported, since discordance with absolute values may lead to misinterpretation of CBC data. Current Interpretive Data was last revised on 2018. Lymphocyte pct 34.3 % [facility] ([place]) Comment: Interpretive Data Percent cell count reference ranges are not reported, since discordance with absolute values may lead to misinterpretation of CBC data. Current Interpretive Data was last revised on 2018. Monocyte pct 10.2 % [facility] ([place]) Comment: Interpretive Data Percent cell count reference ranges are not reported, since discordance with absolute values may lead to misinterpretation of CBC data. Current Interpretive Data was last revised on 2018. Eosinophil pct 2.3 % [facility] ([place]) Comment: Interpretive Data Percent cell count reference ranges are not reported, since discordance with absolute values may lead to misinterpretation of CBC data. Current Interpretive Data was last revised on 2018. Basophil pct 0.0 % [facility] ([place]) Comment: Interpretive Data Percent cell count reference ranges are not reported, since discordance with absolute values may lead to misinterpretation of CBC data. Current Interpretive Data was last revised on 2018. Blood 10/06/2024 4:05 AM LEHR ATTENDANT 10/06/2024 4:36 AM LEHR ATTENDANT us Graeme Finch MD LAB BLOOD ORDERABLES Final Resu lt [facility]AL [facility] ([place]) 1 [facility] Department [place] [address] * (ABNORMAL) CBC with auto differential (10/06/2024 4:05 AM LEHR ATTENDANT) WBC 2.7(L) 3.8 - 9.9 K/cumm Hgb 12.7(L) 13.0 - 17.5 g/dL [facility] ([place]) Hct 37.2(L) 38.9 - 50.3 % [facility] ([place]) Plt 87(L) 150 - 400 K/cumm [facility] ([place]) MPV 10.2 9.1 - 12.3 fL [facility] ([place]) RBC 3.94(L) 4.30 - 5.80 M/cumm [facility] ([place]) MCV 94.4 81.3 - 96.4 fL [facility] ([place]) MCH 32.2 27.1 - 33.3 pg [facility] ([place]) MCHC 34.1 32.3 - 35.7 g/dL [facility] ([place]) RDW CV 14.2 11.1 - 14.9 % [facility] ([place]) RDW SD 48.4(H) 35.7 - 48.1 fL [facility] ([place]) NRBC abs 0.00 0.00 - 0.01 K/cumm [facility] ([place]) Blood 10/06/2024 4:05 AM LEHR ATTENDANT 10/06/2024 4:36 AM LEHR ATTENDANT Graeme Finch MD LAB BLOOD ORDERABLES Final Resu lt HIRAL WATSON ([place]) 1 [facility] [place] [address] * Phosphorus (10/06/2024 4:05 AM LEHR ATTENDANT) Phosphorus, pl 2.8 2.3 - 4.5 mg/dL Blood 10/06/2024 4:05 AM LEHR ATTENDANT 10/06/2024 4:37 AM LEHR ATTENDANT Aniya Bhakta MD LAB BLOOD ORDERABLES Fin al Result Performing Organization Address [facility] Co de Phone Number [facility] ([place]) 1 [facility] [place] [address] * Magnesium (10/06/2024 4:05 AM LEHR ATTENDANT) Magnesium 1.8 1.4 - 2.5 mg/dL Blood 10/06/2024 4:05 AM LEHR ATTENDANT 10/06/2024 4:37 AM LEHR ATTENDANT Graeme Finch MD LAB BLOOD ORDERABLES Final Resu lt Performing Organization Address [facility] Co de Phone Number HIRAL WATSON ([place]) 1 [facility] [place] [address] * (ABNORMAL) Creatine kinase (CK), total (10/06/2024 4:05 AM LEHR ATTENDANT) CK 376(H) 40 - 300 Units/L Blood 10/06/2024 4:05 AM LEHR ATTENDANT 10/06/2024 4:37 AM LEHR ATTENDANT Aniya Bhakta MD LAB BLOOD ORDERABLES Fin al Result Performing Organization Address City/[facility]/ZIP Co de Phone Number HIRAL WATSON ([place]) 1 [facility] [place] [address] * (ABNORMAL) Comprehensive metabolic panel (10/06/2024 4:05 AM LEHR ATTENDANT) Sodium 143 135 - 145 mmol/L Potassium, pl 3.7 3.3 - 4.9 mmol/L [facility] ([place]) Chloride 109 97 - 110 mmol/L [facility] ([place]) CO2 23 22 - 32 mmol/L [facility] ([place]) Anion gap 11 2 - 15 mmol/L [facility] ([place]) BUN 7 6 - 25 mg/dL [facility] ([place]) Creatinine 0.81 0.80 - 1.30 mg/dL [facility] ([place]) Glucose 83 70 - 199 mg/dL [facility] ([place]) Comment: Interpretive Data Fasting glucose >/= 126 mg/dl is diagnostic for diabetes. Fasting is defined as no caloric intake for at least 8 hours. Fasting glucose between 100 mg/dl to 125 mg/dl is diagnostic of prediabetes. In a patient with classic symptoms of hyperglycemia or hyperglycemic crisis, a random glucose >/= 200 mg/dl is diagnostic for diabetes. In the absence of unequivocal hyperglycemia, results should be confirmed by repeat testing. The classification and Diagnosis of Diabetes Diabetes Care 2021; 46: S19-S40. Current interpretive data was last revised 2022. Calcium 8.2(L) 8.5 - 10.3 mg/dL [facility] ([place]) Bilirubin, total 1.2 0.1 - 1.2 mg/dL [facility] ([place]) Protein, pl 6.2(L) 6.5 - 8.5 g/dL [facility] ([place]) Albumin 3.9 3.5 - 5.0 g/dL [facility] ([place]) Alk phos 169(H) 40 - 130 Units/L [facility] ([place]) ALT 45 7 - 55 Units/L [facility] ([place]) AST 74(H) 10 - 50 Units/L [facility] ([place]) Blood 10/06/2024 4:05 AM LEHR ATTENDANT 10/06/2024 4:37 AM LEHR ATTENDANT Graeme Finch MD LAB BLOOD ORDERABLES Final Resu lt [facility] [place] 1 [facility] Department [place] [address] * XR Spine Lumbar 2 or 3 Views (10/06/2024 3:58 AM LEHR ATTENDANT) Anatomical Region Laterality Modality Spine N/A Computed Radiogr aphy 10/06/2024 5:25 AM LEHR ATTENDANT Narrative 10/06/2024 5:26 AM LEHR ATTENDANT EXAM DESCRIPTION: XR SPINE LUMBAR 2 OR 3 VIEWS REASON FOR STUDY: Low back pain, no red flags, no prior management, back pain Pt was admitted to hospital after coming to ED with ETOH and drug overdose 2 days ago. Pt is complaining of lower back pain. 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 No hx of fx No surgery to back TECHNIQUE: Three views COMPARISON: 04/21/2016 CT FINDINGS: 5 non rib-bearing lumbar type vertebra. No compression deformity or misalignment. Isww-yj-zfhxjspt loss of disc height L4 through S1 with early endplate degenerative changes. Associated mild facet hypertrophic change. SI joints demonstrate minimal degenerative change. Paravertebral soft tissues are unremarkable. IMPRESSION: Zlyl-oz-beuutggn degenerative changes lower lumbar spine. THIS IS AN ELECTRONICALLY VERIFIED FINAL REPORT 10/06/2024 5:26 AM - Electronically signed by Jonas Causey M.D. RB: HERMILA Report ID: [id number] Reading Location: [id number] Procedure Note Jonas Causey MD - 10/06/2024 EXAM DESCRIPTION: XR SPINE LUMBAR 2 OR 3 VIEWS REASON FOR STUDY: Low back pain, no red flags, no prior management, back pain Pt was admitted to hospital after coming to ED with ETOH and drug overdose2 days ago. Pt is complaining of lower back pain. 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 No hx of fx No surgery to back TECHNIQUE: Three views COMPARISON: 04/21/2016 CT FINDINGS: 5 non rib-bearing lumbar type vertebra. No compression deformity or misalignment. Qzrp-zb-lrohwrua loss of disc height L4 through S1 with early endplate degenerative changes. Associated mild facet hypertrophic change. SI joints demonstrate minimal degenerative change. Paravertebral soft tissues are unremarkable. IMPRESSION: Ghlc-eo-qittkmgm degenerative changes lower lumbar spine. THIS IS AN ELECTRONICALLY VERIFIED FINAL REPORT 10/06/2024 5:26 AM - Electronically signed by Jonas Causey M.D. RB: HERMILA Report ID: [id number] Reading Location: [id number] us Graeme Finch MD IMG XR PROCEDURES Final Result * eGFR (10/05/2024 8:45 AM LEHR ATTENDANT) eGFR >90 >=60 mL/min/1. 73 m2 Comment: Interpretive Data Reference Interval Normal >/= 90 mL/min/1.73m2 Mildly decreased* 60 - 89 mL/min/1.73m2 Mildly to moderately decreased 45 - 59 mL/min/1.73m2 Moderately to severely decreased 30 - 44 mL/min/1.73m2 Severely decreased 15 - 29 mL/min/1.73m2 Kidney Failure < 15 mL/min/1.73m2 *Relative to young adult level Estimated glomerular filtration rate is determined by the 2020 CKD-EPI equation recommended by the National Kidney Foundation (A Unifying Approach to GFR Estimation: Recommendations of the NKF-ASK Task Force on Reassessing the Inclusion of Race in Diagnosing Kidney Disease, JASN 202). The CKD-EPI equation should not be used for patients with unstable renal function and has not been validated in children and those over 70. Current interpretive data was last reviewed 2021. Blood 10/05/2024 8:45 AM LEHR ATTENDANT 10/05/2024 8:56 AM LEHR ATTENDANT us Aniya Bhakta MD LAB BLOOD ORDERABLES Fin al Result HIRAL WATSON ([place]) 1 [place] [address] * (ABNORMAL) Phosphorus (10/05/2024 8:45 AM LEHR ATTENDANT) Pathologist [facility] Phosphorus, pl 2.2(L) 2.3 - 4.5 mg/dL Blood 10/05/2024 8:45 AM LEHR ATTENDANT 10/05/2024 8:56 AM LEHR ATTENDANT Aniya Bhakta MD LAB BLOOD ORDERABLES Fin al Result Performing Organization Address City/[facility]/ZIP Co de Phone Number HIRAL WATSON ([place]) 1 [place] [address] * (ABNORMAL) Creatine kinase (CK), total (10/05/2024 8:45 AM LEHR ATTENDANT) Pathologist [facility] CK 747(H) 40 - 300 Units/L Blood 10/05/2024 8:45 AM LEHR ATTENDANT 10/05/2024 8:56 AM LEHR ATTENDANT Aniya Bhakta MD LAB BLOOD ORDERABLES Fin al Result Performing Organization Address City/[facility]/ZIP Co de Phone Number HIRAL WATSON ([place]) 1 [place] [address] * (ABNORMAL) Basic metabolic panel (10/05/2024 8:45 AM LEHR ATTENDANT) [facility] Sodium 137 135 - 145 mmol/L Potassium, pl 3.7 3.3 - 4.9 mmol/L [facility] ([place]) Chloride 103 97 - 110 mmol/L [facility] ([place]) CO2 24 22 - 32 mmol/L [facility] ([place]) Anion gap 10 2 - 15 mmol/L [facility] ([place]) BUN 11 6 - 25 mg/dL [facility] ([place]) Creatinine 0.79(L) 0.80 - 1.30 mg/dL [facility] ([place]) Comment:Icteric sample, test results may be affected. Glucose 98 70 - 199 mg/dL [facility] ([place]) Comment: Interpretive Data Fasting glucose >/= 126 mg/dl is diagnostic for diabetes. Fasting is defined as no caloric intake for at least 8 hours. Fasting glucose between 100 mg/dl to 125 mg/dl is diagnostic of prediabetes. In a patient with classic symptoms of hyperglycemia or hyperglycemic crisis, a random glucose >/= 200 mg/dl is diagnostic for diabetes. In the absence of unequivocal hyperglycemia, results should be confirmed by repeat testing. The classification and Diagnosis of Diabetes Diabetes Care 202; 46: S19-S40. Current interpretive data was last revised 2022. Calcium 8.5 8.5 - 10.3 mg/dL [facility] ([place]) Blood 10/05/2024 8:45 AM LEHR ATTENDANT 10/05/2024 8:56 AM LEHR ATTENDANT Aniya Bhakta MD LAB BLOOD ORDERABLES Fin al Result [facility] ([place]) 1 [facility] Department of Laboratories [place], [place] [id number] * (ABNORMAL) Urinalysis reflex to microscopic and culture Urine, clean voided (10/05/2024 8:36 AM LEHR ATTENDANT) Color, ur Yellow Yellow Clarity, ur Clear Clear [facility] A ([place]) Specific gravity, ur 1.011 1.003 - 1.030 [facility] ([place]) pH, urine 6.5 [facility] ([place]) Comment: Interpretive Data U rine pH is affected by diet, medications, systemic acid-base disturbances, and renal tubular function. pH may affect urinary stone formation. For example, urine pH below 6.0 may help reduce the tendency for calcium phosphate stones and pH greater than 6.0 may reduce the tendency for uric acid stone formation. Source: [facility] [employer] Current Interpretive Data was last revised on 2017 Protein, ur ql Negative Negative [facility] ([place]) Glucose, ur ql Negative Negative [facility] ([place]) Ketones, ur 1+(A) Negative [facility] ([place]) Bilirubin, ur Negative Negative [facility] ([place]) Blood, ur Negative Negative [facility] ([place]) Urobilinogen, ur <2.0 <2.0 mg/dL [facility] ([place]) Nitrite, ur Negative Negative [facility] ([place]) Leukocyte esterase, ur Negative Negative [facility] ([place]) UA reflex comment Reflex conditions for microscopic UA and culture not met. [facility] ([place]) Urine, clean voided 10/05/2024 8:36 AM LEHR ATTENDANT 10/05/2024 11:58 AM LEHR ATTENDANT Graeme Finch MD LAB MICROBIOLOGY - GENERAL MARIA ALEJANDRA JOHNSON Final Result [facility] ([place]) 1 [facility] Department [place] [address] * (ABNORMAL) Drugs of Abuse Screen, Urine without Confirmation (10/05/2024 8:36 AM LEHR ATTENDANT) Amphetamine, ur Not Detected CutOff 500ng/mL Comment: Interpretive Data - Amphetamines: Samples containing greater than 500 ng/mL d-methamphetamine or other cross-reacting amphetamine compounds are reported as positive. Amphetamine immunoassays are subject to significant false positive rates due to cross-reactivity of non-amphetamine drugs. Confirmatory testing required for definitive results. Current Interpretive Data was last reviewed 2023. Barbiturates, ur Not Detected CutOff 200ng/mL [facility] ([place]) Comment: Interpretive Data - Barbiturates: Samples containing greater than 200 ng/mL secobarbital or other cross-reacting barbiturate compounds are reported as positive. False positive and false negative results are possible. Confirmatory testing required for definitive results. Current Interpretive Data was last reviewed 2023. Benzodiazepines, ur Screen Positive, presumptive (A) CutOff 100ng/mL [facility] ([place]) Comment: Interpretive Data - Benzodiazepines: Samples containing greater than 100 ng/mL nordiazepam or other cross-reacting compounds are reported as positive. False positive and false negative results are possible. Confirmatory testing required for definitive results. Current Interpretive Data was last reviewed 2023. Cannabinoids, ur Not Detected CutOff 50 ng/mL [facility] ([place]) Comment: Interpretive Data - Cannabinoids: Samples containing greater than 50 ng/mL delta-9 THC -COOH or other cross- reacting compounds are reported as positive. False positive and false negative results are possible. Confirmatory testing required for definitive results. Current Interpretive Data was last reviewed 2023. Cocaine, ur Not Detected CutOff 150ng/mL [facility] ([place]) Comment: Interpretive Data - Cocaine: Samples containing greater than 150 ng/mL benzoylecgonine or other cross- reacting compounds are reported as positive. False positive and false negative results are possible. Confirmatory testing required for definitive results. Current Interpretive Data was last reviewed 2023. Fentanyl, Ur Not Detected CutOff 5 ng/mL [facility] ([place]) Comment: Interpretive Data - Fentanyl: Samples containing greater than 5 ng/mL norfentanyl, fentanyl, or other cross-reacting fentanyl compounds are reported as positive. False positive and false negative results are possible. Confirmatory testing required for definitive results. Current Interpretive Data was last reviewed 2023. Methadone, ur Not Detected CutOff 300ng/mL [facility] ([place]) Comment: Interpretive Data - Methadone: Samples containing greater than 300 ng/mL d,l-methadone or other cross-reacting compounds are reported as positive. False positive and false negative results are possible. Confirmatory testing required for definitive results. Current Interpretive Data was last reviewed 2023. Opiates, ur Not Detected CutOff 300ng/mL [facility] ([place]) Comment: Interpretive Data - Opiates: Samples containing greater than 300 ng/mL morphine or other cross-reacting compounds are reported as positive. False positive and false negative results are possible. Confirmatory testing required for definitive results. Current Interpretive Data was last reviewed 2023. Oxycodone, ur Not Detected CutOff 100ng/mL [facility] ([place]) Comment: Interpretive Data - Oxycodone: Samples containing greater than 100 ng/mL oxycodone or other cross-reacting compounds are reported as positive. False positive and false negative results are possible. Confirmatory testing required for definitive results. Current Interpretive Data was last reviewed 2023. Phencyclidine, ur Not Detected CutOff 25 ng/mL [facility] ([place]) Comment: Interpretive Data - Phencyclidine: Samples containing greater than 25 ng/mL phencyclidine or other cross-reacting compounds are reported as positive. False positive and false negative results are possible. Confirmatory testing required for definitive results. Current Interpretive Data was last reviewed 2023. Urine Creatinine 90 mg/dL [facility] ([place]) Comment: Interpretive Data Urine Creatinine: < 10 mg/dL is extremely dilute = or > 10 but < 20 mg/dL is dilute = or > 20 mg/dL is normal Current Interpretive Data was last revised on 2018. Urine 10/05/2024 8:36 AM LEHR ATTENDANT 10/05/2024 9:29 AM LEHR ATTENDANT Narrative [facility] ([place]) - 10/05/2024 9:44 AM LEHR ATTENDANT Drug of Abuse screening is performed by immunoassay for medical purposes only. This is not to be used for Pain Management purposes. us Graeme Finch MD LAB URINE ORDERABLES Final Resu lt Performing Organization Address City/[facility]/ZIP Co de Phone Number [facility]AL [facility] ([place]) 1 [facility] Department [place] [address] * (ABNORMAL) Creatine kinase (CK), total (10/05/2024 4:30 AM LEHR ATTENDANT) CK 791(H) 40 - 300 Units/L Blood 10/05/2024 4:30 AM LEHR ATTENDANT 10/05/2024 5:20 AM LEHR ATTENDANT Aniya Bhakta MD LAB BLOOD ORDERABLES Fin al Result [facility] ([place]) 1 [facility] [place] [address] * Troponin T high-sensitivity 6-hour (10/05/2024 12:03 AM LEHR ATTENDANT) Trop T hs 6 <=22 ng/L Comment: Interpretive Data For further hscTnT resources including the diagnostic algorithm and an aid in interpretation, copy and paste this link: https://nrl.testcatalog.org/show/hsTrop Current Interpretive Data last revised 2020. Trop T hs delta -2 ng/L [facility] ([place]) Trop T hs interp Insignificant [facility] ([place]) Blood 10/05/2024 12:0 3 AM LEHR ATTENDANT 10/05/2024 12:18 AM LEHR ATTENDANT us Mp Ya MD LAB BLOOD ORDERABLES Final Result Performing Organization Address City/[facility]/ZIP Co de Phone Number [facility] ([place]) 1 [facility] [place] [address] * eGFR (10/05/2024 12:03 AM LEHR ATTENDANT) eGFR >90 >=60 mL/min/1. 73 m2 Comment: Interpretive Data Reference Interval Normal >/= 90 mL/min/1.73m2 Mildly decreased* 60 - 89 mL/min/1.73m2 Mildly to moderately decreased 45 - 59 mL/min/1.73m2 Moderately to severely decreased 30 - 44 mL/min/1.73m2 Severely decreased 15 - 29 mL/min/1.73m2 Kidney Failure < 15 mL/min/1.73m2 *Relative to young adult level Estimated glomerular filtration rate is determined by the 2020 CKD-EPI equation recommended by the National Kidney Foundation (A Unifying Approach to GFR Estimation: Recommendations of the NKF-ASK Task Force on Reassessing the Inclusion of Race in Diagnosing Kidney Disease, JASN 2020). The CKD-EPI equation should not be used for patients with unstable renal function and has not been validated in children and those over 70. Current interpretive data was last reviewed 2021. Blood 10/05/2024 12:0 3 AM LEHR ATTENDANT 10/05/2024 12:28 AM LEHR ATTENDANT us Graeme Finch MD LAB BLOOD ORDERABLES Final Resu lt [facility] ([place]) 1 [facility] Department [place] [address] * Differential, auto (10/05/2024 12:03 AM LEHR ATTENDANT) Neutrophil abs 1.7 1.5 - 6.5 K/cumm Imm gran abs 0.0 0.0 - 0.1 K/cumm [facility] ([place]) Lymphocyte abs 1.7 0.8 - 3.3 K/cumm [facility] ([place]) Monocyte abs 0.4 0.2 - 0.8 K/cumm [facility] ([place]) Eosinophil abs 0.1 0.0 - 0.5 K/cumm [facility] ([place]) Basophil abs 0.0 0.0 - 0.1 K/cumm [facility] ([place]) Neutrophil pct 43.6 % [facility] ([place]) Comment: Interpretive Data Percent cell count reference ranges are not reported, since discordance with absolute values may lead to misinterpretation of CBC data. Current Interpretive Data was last revised on 2018. Imm gran pct 0.3 % [facility] ([place]) Comment: Interpretive Data Percent cell count reference ranges are not reported, since discordance with absolute values may lead to misinterpretation of CBC data. Current Interpretive Data was last revised on 2018. Lymphocyte pct 44.1 % [facility] ([place]) Comment: Interpretive Data Percent cell count reference ranges are not reported, since discordance with absolute values may lead to misinterpretation of CBC data. Current Interpretive Data was last revised on 2018. Monocyte pct 10.5 % [facility] ([place]) Comment: Interpretive Data Percent cell count reference ranges are not reported, since discordance with absolute values may lead to misinterpretation of CBC data. Current Interpretive Data was last revised on 2018. Eosinophil pct 1.5 % [facility] ([place]) Comment: Interpretive Data Percent cell count reference ranges are not reported, since discordance with absolute values may lead to misinterpretation of CBC data. Current Interpretive Data was last revised on 2018. Basophil pct 0.0 % [facility] ([place]) Comment: Interpretive Data Percent cell count reference ranges are not reported, since discordance with absolute values may lead to misinterpretation of CBC data. Current Interpretive Data was last revised on 2018. Blood 10/05/2024 12:0 3 AM LEHR ATTENDANT 10/05/2024 12:18 AM LEHR ATTENDANT Graeme Finch MD LAB BLOOD ORDERABLES Final Resu lt [facility] ([place]) 1 [facility] [place] [address] * (ABNORMAL) CBC with auto differential (10/05/2024 12:03 AM LEHR ATTENDANT) WBC 3.9 3.8 - 9.9 K/cumm Hgb 12.1(L) 13.0 - 17.5 g/dL [facility] ([place]) Hct 35.2(L) 38.9 - 50.3 % [facility] ([place]) Plt 89(L) 150 - 400 K/cumm [facility] ([place]) MPV 10.1 9.1 - 12.3 fL [facility] ([place]) RBC 3.73(L) 4.30 - 5.80 M/cumm [facility] ([place]) MCV 94.4 81.3 - 96.4 fL [facility] ([place]) MCH 32.4 27.1 - 33.3 pg [facility] ([place]) MCHC 34.4 32.3 - 35.7 g/dL [facility] ([place]) RDW CV 14.6 11.1 - 14.9 % [facility] ([place]) RDW SD 49.9(H) 35.7 - 48.1 fL [facility] ([place]) NRBC abs 0.00 0.00 - 0.01 K/cumm [facility] ([place]) Blood 10/05/2024 12:0 3 AM LEHR ATTENDANT 10/05/2024 12:18 AM LEHR ATTENDANT Graeme Finch MD LAB BLOOD ORDERABLES Final Resu lt [facility] ([place]) 1 [facility] [place] [address] * Magnesium (10/05/2024 12:03 AM LEHR ATTENDANT) [facility] Magnesium 2.0 1.4 - 2.5 mg/dL Blood 10/05/2024 12:0 3 AM LEHR ATTENDANT 10/05/2024 12:18 AM LEHR ATTENDANT rGaeme Finch MD LAB BLOOD ORDERABLES Final Resu lt Performing Organization Address City/[facility]/ZIP Co de Phone Number [facility] ([place]) 1 [facility] [place] [address] * (ABNORMAL) Creatine kinase (CK), total (10/05/2024 12:03 AM LEHR ATTENDANT) [facility] CK 926(H) 40 - 300 Units/L Blood 10/05/2024 12:0 3 AM LEHR ATTENDANT 10/05/2024 12:18 AM LEHR ATTENDANT Graeme Finch MD LAB BLOOD ORDERABLES Final Resu lt Performing Organization Address City/[facility]/ZIP Co de Phone Number [facility] ([place]) 1 [facility] [place] [address] * (ABNORMAL) Comprehensive metabolic panel (10/05/2024 12:03 AM LEHR ATTENDANT) [facility] Sodium 143 135 - 145 mmol/L Potassium, pl 3.2(L) 3.3 - 4.9 mmol/L [facility] ([place]) Chloride 107 97 - 110 mmol/L [facility] ([place]) CO2 21(L) 22 - 32 mmol/L [facility] ([place]) Anion gap 16(H) 2 - 15 mmol/L [facility] ([place]) BUN 8 6 - 25 mg/dL [facility] ([place]) Creatinine 0.78(L) 0.80 - 1.30 mg/dL [facility] ([place]) Glucose 71 70 - 199 mg/dL [facility] ([place]) Comment: Interpretive Data Fasting glucose >/= 126 mg/dl is diagnostic for diabetes. Fasting is defined as no caloric intake for at least 8 hours. Fasting glucose between 100 mg/dl to 125 mg/dl is diagnostic of prediabetes. In a patient with classic symptoms of hyperglycemia or hyperglycemic crisis, a random glucose >/= 200 mg/dl is diagnostic for diabetes. In the absence of unequivocal hyperglycemia, results should be confirmed by repeat testing. The classification and Diagnosis of Diabetes Diabetes Care 2021; 46: S19-S40. Current interpretive data was last revised 2022. Calcium 7.9(L) 8.5 - 10.3 mg/dL [facility] ([place]) Bilirubin, total 1.1 0.1 - 1.2 mg/dL [facility] ([place]) Protein, pl 5.9(L) 6.5 - 8.5 g/dL [facility] ([place]) Albumin 3.8 3.5 - 5.0 g/dL [facility] ([place]) Alk phos 114 40 - 130 Units/L [facility] ([place]) ALT 45 7 - 55 Units/L [facility] ([place]) AST 70(H) 10 - 50 Units/L [facility] ([place]) Blood 10/05/2024 12:0 3 AM LEHR ATTENDANT 10/05/2024 12:18 AM LEHR ATTENDANT us Graeme Finch MD LAB BLOOD ORDERABLES Final Resu lt [facility] ([place]) 1 [facility] Department [place] [address] * DC CRITICAL CARE ILL/INJURED PATIENT INIT 30-74 MIN (10/04/2024 7:55 PM LEHR ATTENDANT) Narrative Mp Ya MD - 10/04/2024 7:55 PM LEHR ATTENDANT Mp Ya MD 10/04/2024 7:56 PM Critical Care Performed by: Mp Ya MD Authorized by: Mp Ya MD Critical care provider statement: As reflected in the history, physical exam, orders, notes, and/or MDM, I was personally present while the patient was critically ill and provided critical care services for 33 minutes, excluding time involved in separately billable procedures. Critical care was necessary to treat or prevent imminent or life-threatening deterioration of the following condition(s): severe neurologic condition rhabdomylysis acute ingestion suicidal/homicidal ideation Critical care was time spent by me providing the following: continuous telemetry, continuous pulse oximetry and serial bedside patient exams I provided emergent necessary critical care medicine services to this patient. I ordered and reviewed test results and/or imaging studies. I spent time discussing the management of this critically ill patient with consultants and the medical staff. I spent time discussing the management and therapeutic options for this critically ill patient with the patient themselves or with the appropriate designated surrogate decision-maker. I spent time documenting in the medical record. I admitted this patient to a continuous cardiac monitored bed. us Mp Ya MD IN CLINIC/BEDSIDE ORDERABLE S Final Result * XR Chest 1 Vw Portable (10/04/2024 7:11 PM LEHR ATTENDANT) Anatomical Region Laterality Modality Body, Chest N/A Computed Radiogr aphy 10/04/2024 7:50 PM LEHR ATTENDANT Narrative 10/04/2024 7:50 PM LEHR ATTENDANT EXAM DESCRIPTION: XR CHEST 1 VIEW REASON FOR STUDY: opioid overdose Patient is a 34-year-old called in by mother I think who took maybe 15 BuSpar early this morning and then drank the rest of the day he comes in denying suicidal ideation but says he wanted to show his mother that he cares. Patient is clearly under the influence of alcohol he said thank you doc after I examined him but is quite somnolent with somewhat small pupils otherwise history is limited has a history of diabetes sleep apnea suicide attempt in the past polysubstance abuse and alcohol abuse TECHNIQUE: Portable upright AP view of the chest. COMPARISON: 08/28/2021 FINDINGS: LUNGS AND PLEURA: No focal opacity, large effusion, or pneumothorax identified. HEART/MEDIASTINUM: Trachea midline. Cardiac silhouette normal in size. Mediastinal contours appear normal. BONES: Unremarkable. CHEST WALL: Unremarkable. UPPER ABDOMEN: Unremarkable. IMPRESSION: No acute abnormality identified within limits of low inspiratory volume portable technique. Lung bases obscured. THIS IS AN ELECTRONICALLY VERIFIED FINAL REPORT 10/04/2024 7:50 PM - Electronically signed by Hosea Marrero M.D. AR: RACHNA Report ID: [id number] Reading Location: [id number] Procedure Note Hosea Marrero MD - 10/04/2024 EXAM DESCRIPTION: XR CHEST 1 VIEW REASON FOR STUDY: opioid overdose Patient is a 34-year-old called in by mother I think who took maybe 15BuSpar early this morning and then drank the rest of the day he comes in denying suicidal ideation but says he wanted to show his mother that he cares.Patient is clearly under the influence of alcohol he said thank you doc after I examined him but is quite somnolent with somewhat small pupils otherwise history is limited has a history of diabetes sleep apnea suicide attemptin the past polysubstance abuse and alcohol abuse TECHNIQUE: Portable upright AP view of the chest. COMPARISON: 08/28/2021 FINDINGS: LUNGS AND PLEURA: No focal opacity, large effusion, or pneumothorax identified. HEART/MEDIASTINUM: Trachea midline. Cardiac silhouette normal in size. Mediastinal contours appear normal. BONES: Unremarkable. CHEST WALL: Unremarkable. UPPER ABDOMEN: Unremarkable. IMPRESSION: No acute abnormality identified within limits of low inspiratory volume portable technique. Lung bases obscured. THIS IS AN ELECTRONICALLY VERIFIED FINAL REPORT 10/04/2024 7:50 PM - Electronically signed by Hosea Marrero M.D. AR: RACHNA Report ID: [id number] Reading Location: [id number] Mp Ya MD IMG XR PROCEDURES Final Res ult * Troponin T high-sensitivity series (baseline, 2hr, 4hr, 6hr) (10/04/2024 6:06 PM LEHR ATTENDANT) Trop T hs 8 <=22 ng/L Comment: Interpretive Data For further hscTnT resources including the diagnostic algorithm and an aid in interpretation, copy and paste this link: https://nrl.testcatalog.org/show/hsTrop Current Interpretive Data last revised 2020. Blood 10/04/2024 6:06 PM LEHR ATTENDANT 10/04/2024 6:08 PM LEHR ATTENDANT Mp Ya MD LAB BLOOD ORDERABLES Final Result Performing Organization Address City/[facility] Co de Phone Number HIRAL [place]) [address] [place] [address] Department [place] [address] * eGFR (10/04/2024 6:06 PM LEHR ATTENDANT) eGFR >90 >=60 mL/min/1. 73 m2 Comment: Interpretive Data Reference Interval Normal >/= 90 mL/min/1.73m2 Mildly decreased* 60 - 89 mL/min/1.73m2 Mildly to moderately decreased 45 - 59 mL/min/1.73m2 Moderately to severely decreased 30 - 44 mL/min/1.73m2 Severely decreased 15 - 29 mL/min/1.73m2 Kidney Failure < 15 mL/min/1.73m2 *Relative to young adult level Estimated glomerular filtration rate is determined by the 2020 CKD-EPI equation recommended by the National Kidney Foundation (A Unifying Approach to GFR Estimation: Recommendations of the NKF-ASK Task Force on Reassessing the Inclusion of Race in Diagnosing Kidney Disease, JASN 2020). The CKD-EPI equation should not be used for patients with unstable renal function and has not been validated in children and those over 70. Current interpretive data was last reviewed 2021. Blood 10/04/2024 6:06 PM LEHR ATTENDANT 10/04/2024 6:08 PM LEHR ATTENDANT Mp Ya MD LAB BLOOD ORDERABLES Final Result Performing Organization Address [facility] Co de Phone Number [facility] ([place]) 1 [facility] Department [place] [address] * Differential, auto (10/04/2024 6:06 PM LEHR ATTENDANT) Neutrophil abs 3.2 1.5 - 6.5 K/cumm Imm gran abs 0.0 0.0 - 0.1 K/cumm [facility] ([place]) Lymphocyte abs 1.8 0.8 - 3.3 K/cumm [facility] ([place]) Monocyte abs 0.6 0.2 - 0.8 K/cumm [facility] ([place]) Eosinophil abs 0.1 0.0 - 0.5 K/cumm [facility] ([place]) Basophil abs 0.0 0.0 - 0.1 K/cumm [facility] ([place]) Neutrophil pct 56.1 % [facility] ([place]) Comment: Interpretive Data Percent cell count reference ranges are not reported, since discordance with absolute values may lead to misinterpretation of CBC data. Current Interpretive Data was last revised on 2018. Imm gran pct 0.2 % [facility] ([place]) Comment: Interpretive Data Percent cell count reference ranges are not reported, since discordance with absolute values may lead to misinterpretation of CBC data. Current Interpretive Data was last revised on 2018. Lymphocyte pct 32.1 % [facility] ([place]) Comment: Interpretive Data Percent cell count reference ranges are not reported, since discordance with absolute values may lead to misinterpretation of CBC data. Current Interpretive Data was last revised on 2018. Monocyte pct 10.5 % [facility] ([place]) Comment: Interpretive Data Percent cell count reference ranges are not reported, since discordance with absolute values may lead to misinterpretation of CBC data. Current Interpretive Data was last revised on 2018. Eosinophil pct 0.9 % [facility] ([place]) Comment: Interpretive Data Percent cell count reference ranges are not reported, since discordance with absolute values may lead to misinterpretation of CBC data. Current Interpretive Data was last revised on 2018. Basophil pct 0.2 % [facility] ([place]) Comment: Interpretive Data Percent cell count reference ranges are not reported, since discordance with absolute values may lead to misinterpretation of CBC data. Current Interpretive Data was last revised on 2018. Blood 10/04/2024 6:06 PM LEHR ATTENDANT 10/04/2024 6:08 PM LEHR ATTENDANT us Mp Ya MD LAB BLOOD ORDERABLES Final Result [facility] ([place]) 1 [facility] Department [place] [address] * Pro B-type natriuretic peptide (10/04/2024 6:06 PM LEHR ATTENDANT) Pathologist [facility] NT-proBNP <36 <=300 pg/mL Comment: Interpretive Comments: A. Dyspnea in Acute Care Setting All Ages: < 300 pg/ml, acute heart failure unlikely. < 50 yrs: 300 - 450 pg/ml, further investigation warranted. > 450 pg/ml, acute heart failure likely. 50 - 74 yrs: 300 - 900 pg/ml, further investigation warranted. > 900 pg/ml, acute heart failure likely . > or = 75 yrs: 450 - 1800 pg/ml, further investigation warranted. > 1800 pg/ml, acute heart failure likely. B. Non-acute Setting < 75 yrs < 125 pg/ml, rules out heart failure. > or = 125 pg/ml, further investigation warranted. > or = 75 yrs < 450 pg/ml, rules out heart failure. > or = 450 pg/ml, further investigation warranted. - Knowledge of each individual patient's NT-proBNP range may be more useful than using similar cut-points for every patient. Please note that marked elevations in NT-proBNP levels may be observed in state other than Left Ventricular Congestive Failure, including: acute coronary syndromes, right heart strain/failure (including pulmonary embolism and cor pulmonale), critical illness, renal failure, as well as advanced age. - References: 1. Rocío LÓPEZ et.al. Eur Heart J. 2006:27:330-337. 2. Bk RW, Marcelo AM. J. AM Johnnie Cardiol: Cardiovasc Imag. 2009;2: 216- 225. Interpretive Data Last Revised Date: 2018. Blood 10/04/2024 6:06 PM LEHR ATTENDANT 10/04/2024 6:08 PM LEHR ATTENDANT us Mp Ya MD LAB BLOOD ORDERABLES Final Result [facility] ([place]) 1 [facility] Department of Laboratories [place], [place] [id number] * (ABNORMAL) CBC with auto differential (10/04/2024 6:06 PM LEHR ATTENDANT) WBC 5.7 3.8 - 9.9 K/cumm Hgb 12.9(L) 13.0 - 17.5 g/dL [facility] ([place]) Hct 36.9(L) 38.9 - 50.3 % [facility] ([place] Plt 111(L) 150 - 400 K/cumm [facility] ([place]) MPV 9.7 9.1 - 12.3 fL [facility] ([place] RBC 4.01(L) 4.30 - 5.80 M/cumm [facility] ([place]) MCV 92.0 81.3 - 96.4 fL [facility] ([place]) MCH 32.2 27.1 - 33.3 pg [facility] ([place]) MCHC 35.0 32.3 - 35.7 g/dL [facility] ([place]) RDW CV 14.4 11.1 - 14.9 % [facility] ([place]) RDW SD 48.0 35.7 - 48.1 fL [facility] ([place]) NRBC abs 0.00 0.00 - 0.01 K/cumm [facility] ([place]) Blood 10/04/2024 6:06 PM LEHR ATTENDANT 10/04/2024 6:08 PM LEHR ATTENDANT Mp Ya MD LAB BLOOD ORDERABLES Final Result [facility] ([place]) [facility] [facility] Department of Laboratories [place] [id number] * aPTT (10/04/2024 6:06 PM LEHR ATTENDANT) aPTT 32 28 - 38 sec [facility] ([place]) Comment: Interpretive Data Heparin therapeutic range: 66.0 - 100.0 seconds. Range based on correlation with therapeutic heparin activity range of 0.3 - 0.7 Units/mL. Current interpretive data was last revised on 2023. Blood 10/04/2024 6:06 PM LEHR ATTENDANT 10/04/2024 6:08 PM LEHR ATTENDANT Mp Ya MD LAB BLOOD ORDERABLES Final Result Performing Organization Address [facility] Co de Phone Number [facility] ([place]) [address] [place] [address] * Protime-INR (10/04/2024 6:06 PM LEHR ATTENDANT) PT 13.0 9.7 - 13.0 sec [facility]AL [facility] ([place]) INR 1.20 0.90 - 1.20 [facility] ([place]) Comment: Interpretive data Oral anticoagulant therapeutic ranges: Venous thromboembolism prophylaxis or treatment: 2.0-3.0 CARDIOLOGY Standard range: 2.0-3.0 High-intensity range: 2.5-3.5 Refer to indication-specific guidelines for appropriate target ranges for prosthetic heart valve replacement. Current interpretive data was last revised on 2019. Blood 10/04/2024 6:06 PM LEHR ATTENDANT 10/04/2024 6:08 PM LEHR ATTENDANT Mp Ya MD LAB BLOOD ORDERABLES Final Result Performing Organization Address [facility] Co de Phone Number [facility] ([place]) [address] [place] [address] * Magnesium (10/04/2024 6:06 PM LEHR ATTENDANT) Magnesium 1.8 1.4 - 2.5 mg/dL Blood 10/04/2024 6:06 PM LEHR ATTENDANT 10/04/2024 6:08 PM LEHR ATTENDANT Mp Ya MD LAB BLOOD ORDERABLES Final Result Performing Organization Address [facility] Co de Phone Number [facility] ([place]) [address] [place] [address] * Lipase (10/04/2024 6:06 PM LEHR ATTENDANT) Lipase 48 10 - 99 Units/L Blood 10/04/2024 6:06 PM LEHR ATTENDANT 10/04/2024 6:08 PM LEHR ATTENDANT Mp Ya MD LAB BLOOD ORDERABLES Final Result Performing Organization Address [facility]/ZIP Co de Phone Number [facility] ([place]) 1 [facility] [place] [address] * (ABNORMAL) Creatine kinase (CK), total (10/04/2024 6:06 PM LEHR ATTENDANT) CK 1,255(H) 40 - 300 Units/L Blood 10/04/2024 6:06 PM LEHR ATTENDANT 10/04/2024 6:08 PM LEHR ATTENDANT Mp Ya MD LAB BLOOD ORDERABLES Final Result Performing Organization Address [facility] Co de Phone Number [facility] ([place]) 1 [facility] [place] [address] * (ABNORMAL) Ethanol (10/04/2024 6:06 PM LEHR ATTENDANT) Ethanol 209(H) <=10 mg/dL Comment: Interpretive Data Legal limit of intoxication > or = 80 mg/dL Levels > or = 400 mg/dL are potentially TOXIC. Current interpretive data was last revised on 2018. Blood 10/04/2024 6:06 PM LEHR ATTENDANT 10/04/2024 6:08 PM LEHR ATTENDANT Mp Ya MD LAB BLOOD ORDERABLES Final Result Performing Organization Address [facility] Co de Phone Number [facility] ([place]) 1 [facility] [place] [address] * Acetaminophen level (10/04/2024 6:06 PM LEHR ATTENDANT) Acetaminophen <5 <=5 mcg/mL Comment: Markedly elevated levels of Acetaminophen and it's metabolites may lead to false low test results for cholesterol, HDL, triglycerides and uric acid with the manufacturers test methods used by our lab. Interpretive Data Significant hepatic injury may occur and treatment with n-acetyl cysteine is generally recommended if the acetaminophen level exceeds: 150 mcg/mL at 4 hours after ingestion 75 mcg/mL at 8 hours after ingestion 38 mcg/mL at 12 hours after ingestion 19 mcg/mL at 16 hours after ingestion Consult toxicology or poison control ([phone]) for unknown ingestion time. Current interpretive data was last revised 2023. Blood 10/04/2024 6:06 PM LEHR ATTENDANT 10/04/2024 6:08 PM LEHR ATTENDANT Mp Ya MD LAB BLOOD ORDERABLES Final Result Performing Organization Address [facility] Co de Phone Number [facility] ([place]) 1 [facility] [place] [address] * Salicylate level (10/04/2024 6:06 PM LEHR ATTENDANT) Pathologist [facility] Salicylate <5.0 <=5.0 mg/dL Comment: Interpretive Data Toxic: 30 mg/dL or greater. Current interpretive data was last revised 2023. Blood 10/04/2024 6:06 PM LEHR ATTENDANT 10/04/2024 7:51 PM LEHR ATTENDANT Aniya Bhakta MD LAB BLOOD ORDERABLES Fin al Result Performing Organization Address [facility] Co de Phone Number [facility] ([place]) 1 [facility] [place] [address] * (ABNORMAL) Comprehensive metabolic panel (10/04/2024 6:06 PM LEHR ATTENDANT) Sodium 141 135 - 145 mmol/L Potassium, pl 3.2(L) 3.3 - 4.9 mmol/L [facility] ([place]) Chloride 101 97 - 110 mmol/L [facility] ([place]) CO2 22 22 - 32 mmol/L [facility] ([place]) Anion gap 19(H) 2 - 15 mmol/L [facility] ([place]) BUN 10 6 - 25 mg/dL [facility] ([place]) Creatinine 0.89 0.80 - 1.30 mg/dL [facility] ([place]) Comment:Icteric sample, test results may be affected. Glucose 79 70 - 199 mg/dL [facility] ([place]) Comment: Interpretive Data Fasting glucose >/= 126 mg/dl is diagnostic for diabetes. Fasting is defined as no caloric intake for at least 8 hours. Fasting glucose between 100 mg/dl to 125 mg/dl is diagnostic of prediabetes. In a patient with classic symptoms of hyperglycemia or hyperglycemic crisis, a random glucose >/= 200 mg/dl is diagnostic for diabetes. In the absence of unequivocal hyperglycemia, results should be confirmed by repeat testing. The classification and Diagnosis of Diabetes Diabetes Care 202; 46: S19-S40. Current interpretive data was last revised 2022. Calcium 8.8 8.5 - 10.3 mg/dL [facility] ([place]) Bilirubin, total 1.3(H) 0.1 - 1.2 mg/dL [facility] ([place]) Protein, pl 7.0 6.5 - 8.5 g/dL [facility] ([place]) Albumin 4.3 3.5 - 5.0 g/dL [facility] ([place]) Alk phos 127 40 - 130 Units/L [facility] ([place]) ALT 53 7 - 55 Units/L [facility] ([place]) AST 80(H) 10 - 50 Units/L [facility] ([place]) Comment:Slightly Hemolyzed S pecimen Blood 10/04/2024 6:06 PM LEHR ATTENDANT 10/04/2024 6:08 PM LEHR ATTENDANT us Mp Ya MD LAB BLOOD ORDERABLES Final Result [facility] ([place]) 1 [facility] Department [place] [address] * ECG 12 lead (10/04/2024 5:55 PM LEHR ATTENDANT) 10/04/2024 5:55 PM LEHR ATTENDANT Narrative [facility] - 10/05/2024 8:13 AM LEHR ATTENDANT Vent Rate: 112 bpm RR Interval: 531 msec DC Interval: 152 msec QRS Duration: 84 msec QT Interval: 362 msec QTC Interval: 429 msec P-R-T [place]: 3 - 25 - 0 degrees IMPRESSION: SINUS TACHYCARDIA ABNORMAL RHYTHM ECG compared to prior EKG heart rate increased Electronically Signed By: Krishna Wilhelm MD [facility] us Mp Ya MD ECG ORDERABLES Final Resul t Performing Organization Address [facility] Co de Phone Number [facility] * Diabetic Eye Exam (03/11/2024) us Historical Provider HEALTH MAINTENANCE Final Result * (ABNORMAL) Albumin Creatinine Ratio, Urine (03/03/2024 10:15 AM CDT) Albumin Ur 42.7 mg/L Comment: Interpretive Data No reference range established. Current interpretive data was last revised 2019. Creatinine Ur 39.9 mg/dL [facility] Comment: Interpretive Data No reference range established. Current interpretive data was last revised 2019. Albumin Creatinine Ratio, Ur 107(H) 1 - 29 mg/g [facility] Urine 03/03/2024 10:1 5 AM CDT 03/03/2024 2:46 PM CDT us Evelia Benedict NP LAB URINE ORDERABLES Fin al Result Performing Organization Address [facility] Co de Phone Number [facility] [id number] Department [place] [address] * Lipid panel (03/03/2024 10:15 AM CDT) Cholesterol 174 30 - 199 mg/dL Comment: Interpretive Data Ages < or = 19 years Acceptable: <170 mg/dL Borderline high: 170-199 mg/dL High: >or= 200 mg/dL Ages > or = 20 years Desirable: <200 mg/dL Borderline high: 200-239 mg/dL High: >or= 240 mg/dL Literature References: 1. Expert Panel on Integrated Guidelines for Cardiovascular Health and Risk Reduction in Children and Adolescents. Pediatrics 2011;128:S213 2. NCEP Expert Panel. Circulation 2004;110:227 Current Interpretive Data was last revised on 2018. Triglycerides 114 <=149 mg/dL [facility] Comment: Interpretive Data Ages < or = 9 years Acceptable: <75 mg/dL Borderline high: 75-99 mg/dL High: >or= 100 mg/dL Ages 10 to 20 years Acceptable: <90 mg/dL Borderline high: 90-129 mg/dL High: >or= 130 mg/dL Ages > or = 20 years Desirable: <150 mg/dL Borderline high: 150-199 mg/dL High: 200-499 mg/dL Very high: >or= 499 mg/dL Literature References: 1. Expert Panel on Integrated Guidelines for Cardiovascular Health and Risk Reduction in Children and Adolescents. Pediatrics 2011;128:S213 2. NCEP Expert Panel. Circulation 2004;110:227 Current Interpretive Data was last revised on 2018. HDL 42 >=40 mg/dL [facility] Comment: Interpretive Data Ages < or = 19 years Acceptable: >45 mg/dL Borderline low: 40-45 mg/dL Low: <40 mg/dL Ages > or = 20 years Desirable: >or= 60 mg/dL Low: <40 mg/dL Literature References: 1. Expert Panel on Integrated Guidelines for Cardiovascular Health and Risk Reduction in Children and Adolescents. Pediatrics 2011;128:S213 2. NCEP Expert Panel. Circulation 2004;110:227 Current Interpretive Data was last revised on 2018. LDL, calculated 109 <=129 mg/dL [facility] Comment: Interpretive Data Ages < or = 19 years Acceptable: <110 mg/dL Borderline high: 110-129 mg/dL High: >or= 130 mg/dL Ages > or = 20 years Optimal: <100 mg/dL Near optimal: 100-129 mg/dL Borderline high: 130-159 mg/dL High: >160 mg/dL Literature References: 1. Expert Panel on Integrated Guidelines for Cardiovascular Health and Risk Reduction in Children and Adolescents. Pediatrics 2011;128:S213 2. NCEP Expert Panel. Circulation 2004;110:227 Current Interpretive Data was last revised on 2018. Non-HDL Cholesterol 132 mg/dL [facility] Comment: Interpretive Data Ages < or = 19 years Acceptable: <120 mg/dL Borderline high: 120-144 mg/dL High: >145 mg/dL Ages > or = 20 years When triglycerides are >200 mg/dL, Non-HDL cholesterol is a secondary target of therapy with treatment goals that are 30 mg/dL greater than the LDL cholesterol target. Literature References: 1. Expert Panel on Integrated Guidelines for Cardiovascular Health and Risk Reduction in Children and Adolescents. Pediatrics 2011;128:S213 2. NCEP Expert Panel. Circulation 2004;110:227 Current Interpretive Data was last revised on 2018. Chol/HDL ratio 4 [facility] Blood 03/03/2024 10:1 5 AM CDT 03/03/2024 2:46 PM CDT us Evelia Benedict [employer] LAB BLOOD ORDERABLES Fin al Result Performing Organization Address [facility] de Phone Number [facility] [id number] Department [place] [address] * Hepatitis panel, acute (06/22/2022 10:59 AM CDT) Hep A IgM Nonreactive Nonreactive [facility] Comment: Interpretive Data: If Hep A IgM Ab is reported as Equivocal, a new sample should be drawn in two weeks for testing. Current interpretive data was last revised on 20. Hep B core IgM Nonreactive Nonreactive [facility] Comment: Interpretive Data If HepB Core IgM Ab is reported as Equivocal, a new sample should be drawn in two weeks for testing. Current interpretive data was last revised on 20. Hep C Ab Nonreactive Nonreactive [facility] Comment: Interpretive Data Nonreactive: Antibodies to HCV not detected. Does NOT exclude the possibility of recent exposure to HCV. Equivocal: Equivocal for HCV antibodies. Supplemental molecular testing will be automatically performed to determine infection status in accordance with current CDC screening recommendations. Reactive: Positive for HCV antibodies. This may represent current or past HCV infection. Supplemental molecular testing will be automatically performed to determine current infection status in accordance with current CDC screening recommendations. Interpretive data was last revised on 2020. HepBsAg Nonreactive Nonreactive [facility] Blood 06/22/2022 10:5 9 AM CDT 06/22/2022 4:06 PM CDT us Rajendra Hunter [employer] LAB MICROBIOLOGY - GENER AL ORDERABLES Final Result Performing Organization Address [facility]/State/ZIP Co de Phone Number [facility] [address] Department [place] [address] from Last 3 Months or Most Recently Relevant to Health Maintenance Insurance [place] [employer] [facility] [employer] [facility] [employer] Advance Directives For more information, please contact: [phone] * Full Code (Latest Code Status on File) Date Activated Date Inactivated Comments 10/05/2024 12:05 AM 10/08/2024 4:15 PM * Full Code Date Activated Date Inactivated Comments 10/04/2024 10:24 PM 10/05/2024 12:05 AM * Full Code Date Activated Date Inactivated Comments 07/22/2024 2:54 PM 07/28/2024 2:13 PM * Full Code Date Activated Date Inactivated Comments 01/09/2022 1:03 PM 01/09/2022 7:10 PM * Full Code Date Activated Date Inactivated Comments 12/20/2021 9:50 AM 12/20/2021 3:40 PM Care Teams Pigment Processor Relationship Specialty Start Date End Date Kristy Cintron MD [address] [facility] [address] [place] [address] PCP - General Family Medicine 11/25/19
--- OUTSIDE RECORDS SUMMARY | 2025-01-01 12:04 | XMS_ITS | Referral Summary ---
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 Data was last revised on 2018. Blood 10/06/2024 2:15 PM CAR GROOMER 10/06/2024 2:26 PM CAR GROOMER us Karla Torres MD LAB BLOOD ORDERABLES Cici l Result Performing Organization Address City/[facility]/ZIP Co de Phone Number [facility] ([place]) 1 [facility] [place] [address] * (ABNORMAL) Iron profile w/ IBC (10/06/2024 2:15 PM CAR GROOMER) Pathologist [facility] Iron 75 50 - 150 mcg/dL TIBC 245(L) 250 - 400 mcg/dL [facility] ([place] Transferrin saturation 31 20 - 50 % [facility] ([place] Blood 10/06/2024 2:15 PM CAR GROOMER 10/06/2024 2:26 PM CAR GROOMER Karla Torres MD LAB BLOOD ORDERABLES Cici l Result [facility] ([place]) 1 [facility] [place] [address] * (ABNORMAL) Reticulocyte Count (10/06/2024 2:15 PM CAR GROOMER) [facility] Retics, absolute 0.088(H) 0.020 - 0.087 M/cumm Retics 2.3 0.4 - 2.9 % [facility] ([place]) Reticulocyte Hgb 39.2(H) 30.5 - 38.0 pg [facility] ([place]) Blood 10/06/2024 2:15 PM CAR GROOMER 10/06/2024 2:26 PM CAR GROOMER Karla Torres MD LAB BLOOD ORDERABLES Cici l Result Performing Organization Address [facility] Co de Phone Number [facility] ([place]) 1 [facility] [place] [address] * Folate (10/06/2024 2:15 PM CAR GROOMER) [facility] Folic acid 16.8 >=5.0 ng/mL Comment:Slightly Hemolyzed S pecimen. Results may be affected. Blood 10/06/2024 2:15 PM CAR GROOMER 10/06/2024 2:26 PM CAR GROOMER Karla Torres MD LAB BLOOD ORDERABLES Cici l Result [facility] ([place]) 1 [place] [address] * Ferritin (10/06/2024 2:15 PM CAR GROOMER) Ferritin 221 30 - 400 ng/mL Blood 10/06/2024 2:15 PM CAR GROOMER 10/06/2024 2:26 PM CAR GROOMER Karla Torres MD LAB BLOOD ORDERABLES Cici l Result [facility] ([place]) 1 [place] [address] * Vitamin B12 (10/06/2024 2:15 PM CAR GROOMER) Vitamin B12 321 230 - 1,250 pg/mL Blood 10/06/2024 2:15 PM CAR GROOMER 10/06/2024 2:26 PM CAR GROOMER Karla Torres MD LAB BLOOD ORDERABLES Cici l Result [facility] ([place]) 1 [place] [address] * Clinical pathology report (10/06/2024 8:05 AM CAR GROOMER) Miscellaneous 10/06/2024 8:0 5 AM CAR GROOMER 10/07/2024 8:05 AM CAR GROOMER Narrative 10/07/2024 1:32 PM CAR GROOMER EPIC results best viewed via link to PDF [facility] Department of Pathology [address] [place] [id number] Final Report Note to Patients: This report [...] the details. Patient Name: MANJINDER ROSALES Address: [address] [place] [address] Gender: M : 1990 (Age: 34) Service: Medical Location: [facility] Hospital #: [id number] Patient Type: [facility] Taken: 10/06/2024 Received: 10/07/2024 Accessioned: 10/07/2024 Physician(s): [...] determined by the Surgical Pathology Department at [facility] as part of an ongoing construction quality control manager program and in compliance with federally mandated [...] characteristics determined by the Surgical Pathology Department [facility]. It has not been cleared or approved by the U. S. Food and Drug Administration. REPORT IMAGES AND SCANNED DOCUMENTS, IF INCLUDED, ONLY VIEWABLE IN PDF VERSION OF REPORTe o us Karla Torres MD LAB PATHOLOGY ORDERABLES Final Result * eGFR (10/06/2024 4:05 AM CAR GROOMER) eGFR >90 >=60 mL/min/1. 73 m2 Comment: [...] last reviewed 2021. Blood 10/06/2024 4:05 AM CAR GROOMER 10/06/2024 4:37 AM CAR GROOMER us Graeme Finch MD LAB BLOOD ORDERABLES Final Resu lt [facility] ([place]) 1 [facility] Department [place] [address] * (ABNORMAL) Differential, auto (10/06/2024 4:05 AM CAR GROOMER) Neutrophil abs 1.4(L) 1.5 - 6.5 K/cumm Imm gran abs 0.0 0.0 - 0.1 K/cumm [facility] ([place]) Lymphocyte abs 0.9 0.8 - 3.3 K/cumm [facility] ([place]) Monocyte abs 0.3 0.2 - 0.8 K/cumm [facility] ([place]) Eosinophil abs 0.1 0.0 - 0.5 K/cumm [facility] ([place]) Basophil abs 0.0 0.0 - 0.1 K/cumm [facility] ([place]) Neutrophil pct 52.8 % [facility] ([place]) Comment: Interpretive Data Percent cell count reference ranges are not reported, since discordance with absolute values may lead to misinterpretation of CBC data. Current Interpretive Data was last revised on 2018. Imm gran pct 0.4 % [facility] ([place]) Comment: Interpretive Data Percent cell count reference ranges are not reported, since discordance with absolute values may lead to misinterpretation of CBC data. Current Interpretive Data was last revised on 2018. Lymphocyte pct 34.3 % [facility] ([place]) Comment: Interpretive Data Percent cell count reference ranges are not reported, since discordance with absolute values may lead to misinterpretation of CBC data. Current Interpretive Data was last revised on 2018. Monocyte pct 10.2 % [facility] ([place]) Comment: Interpretive Data Percent cell count reference ranges are not reported, since discordance with absolute values may lead to misinterpretation of CBC data. Current Interpretive Data was last revised on 2018. Eosinophil pct 2.3 % [facility] ([place]) Comment: Interpretive Data Percent cell count reference [...] revised on 2018. Blood 10/06/2024 4:05 AM CAR GROOMER 10/06/2024 4:36 AM CAR GROOMER Graeme Finch MD LAB BLOOD ORDERABLES Final Resu lt [facility] ([place]) 1 [facility] Department [place] [address] * (ABNORMAL) CBC with auto differential (10/06/2024 4:05 AM CAR GROOMER) WBC 2.7(L) 3.8 - 9.9 K/cumm Hgb [...] [facility] ([place]) Blood 10/06/2024 4:05 AM CAR GROOMER 10/06/2024 4:36 AM CAR GROOMER us Graeme Finch MD LAB BLOOD ORDERABLES Final Resu lt [facility] ([place]) 1 [facility] [place] [address] * Phosphorus (10/06/2024 4:05 AM CAR GROOMER) Phosphorus, pl 2.8 2.3 - 4.5 mg/dL Blood 10/06/2024 4:05 AM CAR GROOMER 10/06/2024 4:37 AM CAR GROOMER Aniya Bhakta MD LAB BLOOD ORDERABLES Fin al Result Performing Organization Address [facility] Co de Phone Number [facility] ([place]) 1 [facility] [place] [address] * Magnesium (10/06/2024 4:05 AM CAR GROOMER) Magnesium 1.8 1.4 - 2.5 mg/dL Blood 10/06/2024 4:05 AM CAR GROOMER 10/06/2024 4:37 AM CAR GROOMER Graeme Finch MD LAB BLOOD ORDERABLES Final Resu lt Performing Organization Address [facility] Co de Phone Number [facility] ([place]) [address] [facility] [place] [address] * (ABNORMAL) Creatine kinase (CK), total (10/06/2024 4:05 AM CAR GROOMER) CK 376(H) 40 - 300 Units/L Blood 10/06/2024 4:05 AM CAR GROOMER 10/06/2024 4:37 AM CAR GROOMER Aniya Bhakta MD LAB BLOOD ORDERABLES Fin al Result Performing Organization Address City/[facility]/ZIP Co de Phone Number [facility] ([place]) 1 [facility] [place] [address] * (ABNORMAL) Comprehensive metabolic panel (10/06/2024 4:05 AM CAR GROOMER) Sodium 143 135 - 145 mmol/L Potassium, [...] [facility] ([place]) Blood 10/06/2024 4:05 AM CAR GROOMER 10/06/2024 4:37 AM CAR GROOMER us Graeme Finch MD LAB BLOOD ORDERABLES Final Resu lt [facility] ([place]) 1 [facility] Department [place] [address] * XR Spine Lumbar 2 or 3 Views (10/06/2024 3:58 AM CAR GROOMER) Anatomical Region Laterality Modality Spine N/A Computed Radiogr aphy 10/06/2024 5:25 AM CAR GROOMER Narrative 10/06/2024 5:26 AM CAR GROOMER EXAM DESCRIPTION: XR SPINE LUMBAR 2 OR [...] type vertebra. No compression deformity or misalignment. Bqjv-vv-ffxnflts loss of disc height L4 through S1 with early endplate degenerative changes. Associated mild facet hypertrophic change. SI joints demonstrate minimal degenerative change. Paravertebral soft tissues are unremarkable. IMPRESSION: Mnzz-sz-gtpjxebr degenerative changes lower lumbar spine. THIS IS AN ELECTRONICALLY VERIFIED FINAL REPORT 10/06/2024 5:26 AM - Electronically signed by Jonas Causey M.D. RB: HERMILA Report ID: [id number] Reading Location: [id number] Procedure Note Jonas Causey MD - 10/06/2024 [...] type vertebra. No compression deformity or misalignment. Shmj-dx-ejfhdaoc loss of disc height L4 through S1 with early endplate degenerative changes. Associated mild facet hypertrophic change. SI joints demonstrate minimal degenerative change. Paravertebral soft tissues are unremarkable. IMPRESSION: Tree-vp-fktmjdxw degenerative changes lower lumbar spine. THIS IS AN ELECTRONICALLY VERIFIED FINAL REPORT 10/06/2024 5:26 AM - Electronically signed by Jonas Causey M.D. RB: HERMILA Report ID: [id number] Reading Location: [place] [address] us Graeme Finch MD IMG XR PROCEDURES Final Result * eGFR (10/05/2024 8:45 AM CAR GROOMER) eGFR >90 >=60 mL/min/1. 73 m2 Comment: [...] last reviewed 2021. Blood 10/05/2024 8:45 AM CAR GROOMER 10/05/2024 8:56 AM CAR GROOMER us Aniya Bhakta MD LAB BLOOD ORDERABLES Fin al Result [facility] ([place]) 1 [facility] [place] [address] * (ABNORMAL) Phosphorus (10/05/2024 8:45 AM CAR GROOMER) [facility] Phosphorus, pl 2.2(L) 2.3 - 4.5 mg/dL Blood 10/05/2024 8:45 AM CAR GROOMER 10/05/2024 8:56 AM CAR GROOMER Aniya Bhakta MD LAB BLOOD ORDERABLES Fin al Result Performing Organization Address [facility] Co de Phone Number [facility] ([place]) 1 [place] [address] * (ABNORMAL) Creatine kinase (CK), total (10/05/2024 8:45 AM CAR GROOMER) [facility] CK 747(H) 40 - 300 Units/L Blood 10/05/2024 8:45 AM CAR GROOMER 10/05/2024 8:56 AM CAR GROOMER Aniya Bhakta MD LAB BLOOD ORDERABLES Fin al Result Performing Organization Address [facility] Co de Phone Number [facility] ([place]) 1 [place] [address] * (ABNORMAL) Basic metabolic panel (10/05/2024 8:45 AM CAR GROOMER) [facility] Sodium 137 135 - 145 mmol/L Potassium, pl 3.7 3.3 - 4.9 mmol/L [facility] ([place]) Chloride 103 97 - 110 mmol/L [facility] ([place]) CO2 24 22 - 32 mmol/L [facility] ([place]) Anion gap 10 2 - 15 mmol/L [facility] ([place]) BUN 11 6 - 25 mg/dL [facility] ([place]) Creatinine 0.79(L) 0.80 - 1.30 mg/dL [facility] ([place]) Comment:Icteric sample, test results may [...] [facility] ([place]) Blood 10/05/2024 8:45 AM CAR GROOMER 10/05/2024 8:56 AM CAR GROOMER us Aniya Bhakta MD LAB BLOOD ORDERABLES Fin al Result [facility] ([place]) 1 [facility] Department [place] [address] * (ABNORMAL) Urinalysis reflex to microscopic and culture Urine, clean voided (10/05/2024 8:36 AM CAR GROOMER) Color, ur Yellow Yellow Clarity, ur Clear Clear [facility] ([place]) Specific gravity, ur 1.011 1.003 - 1.030 [facility] ([place]) pH, urine 6.5 [facility] ([place]) Comment: Interpretive Data U rine pH is affected by diet, medications, systemic acid-base disturbances, and renal tubular function. pH may affect urinary stone formation. For example, urine pH below 6.0 may help reduce the tendency for calcium phosphate stones and pH greater than 6.0 may reduce the tendency for uric acid stone formation. Source: [facility] [employer] Current Interpretive Data was last revised on 2017 Protein, ur ql Negative Negative [facility] ([place]) Glucose, ur ql Negative Negative [facility] ([place]) Ketones, ur 1+(A) Negative [facility] ([place]) Bilirubin, ur Negative Negative [facility] ([place]) Blood, ur Negative Negative [facility] ([place]) Urobilinogen, ur <2.0 <2.0 mg/dL [facility] ([place]) Nitrite, ur Negative Negative [facility] ([place]) Leukocyte esterase, ur Negative Negative [facility] ([place]) UA reflex comment Reflex conditions for microscopic UA and culture not met. [facility] ([place]) Urine, clean voided 10/05/2024 8:36 AM CAR GROOMER 10/05/2024 11:58 AM CAR GROOMER us Graeme Finch MD LAB MICROBIOLOGY - GENERAL MARIA ALEJANDRA JOHNSON Final Result [facility] ([place]) 1 [facility] Department [place] [address] * (ABNORMAL) Drugs of Abuse Screen, Urine without Confirmation (10/05/2024 8:36 AM CAR GROOMER) Amphetamine, ur Not Detected CutOff 500ng/mL Comment: [...] 2023. Urine Creatinine 90 mg/dL [facility] ([place]) Comment: Interpretive Data Urine Creatinine: < 10 mg/dL is extremely dilute = or > 10 but < 20 mg/dL is dilute = or > 20 mg/dL is normal Current Interpretive Data was last revised on 2018. Urine 10/05/2024 8:36 AM CAR GROOMER 10/05/2024 9:29 AM CAR GROOMER Narrative [facility] ([place]) - 10/05/2024 9:44 AM CAR GROOMER Drug of Abuse screening is performed by immunoassay for medical purposes only. This is not to be used for Pain Management purposes. Graeme Finch MD LAB URINE ORDERABLES Final Resu lt Performing Organization Address City/[facility]/ZIP Co de Phone Number [facility] ([place]) 1 [facility] [place] [address] * (ABNORMAL) Creatine kinase (CK), total (10/05/2024 4:30 AM CAR GROOMER) CK 791(H) 40 - 300 Units/L Blood 10/05/2024 4:30 AM CAR GROOMER 10/05/2024 5:20 AM CAR GROOMER Aniya Bhakta MD LAB BLOOD ORDERABLES Fin al Result Performing Organization Address City/[facility]/ZIP Co de Phone Number [facility] ([place]) 1 [facility] [place] [address] * Troponin T high-sensitivity 6-hour (10/05/2024 12:03 AM CAR GROOMER) Trop T hs 6 <=22 ng/L Comment: Interpretive Data For further hscTnT resources including the diagnostic algorithm and an aid in interpretation, copy and paste this link: https://nrl.testcatalog.org/show/hsTrop Current Interpretive Data last revised 2020. Trop T hs delta -2 ng/L [facility] ([place]) Trop T hs interp Insignificant [facility] ([place]) Blood 10/05/2024 12:0 3 AM CAR GROOMER 10/05/2024 12:18 AM CAR GROOMER us Mp Ya MD LAB BLOOD ORDERABLES Final Result [facility] ([place]) 1 [facility] [place] [address] * eGFR (10/05/2024 12:03 AM CAR GROOMER) eGFR >90 >=60 mL/min/1. 73 m2 Comment: [...] reviewed 2021. Blood 10/05/2024 12:0 3 AM CAR GROOMER 10/05/2024 12:28 AM CAR GROOMER us Graeme Finch MD LAB BLOOD ORDERABLES Final Resu lt Performing Organization Address City/[facility]/ZIP Co de Phone Number [facility] ([place]) 1 [facility] [place] [address] * Differential, auto (10/05/2024 12:03 AM CAR GROOMER) Neutrophil abs 1.7 1.5 - 6.5 K/cumm [...] on 2018. Blood 10/05/2024 12:0 3 AM CAR GROOMER 10/05/2024 12:18 AM CAR GROOMER Graeme Finch MD LAB BLOOD ORDERABLES Final Resu lt [facility] ([place]) 1 [facility] [address] [place] [address] * (ABNORMAL) CBC with auto differential (10/05/2024 12:03 AM CAR GROOMER) WBC 3.9 3.8 - 9.9 K/cumm Hgb [...] [facility] ([place]) Blood 10/05/2024 12:0 3 AM CAR GROOMER 10/05/2024 12:18 AM CAR GROOMER Graeme Finch MD LAB BLOOD ORDERABLES Final Resu lt [facility] ([place]) 1 [facility] [place] [address] * Magnesium (10/05/2024 12:03 AM CAR GROOMER) Pathologist [facility] Magnesium 2.0 1.4 - 2.5 mg/dL Blood 10/05/2024 12:0 3 AM CAR GROOMER 10/05/2024 12:18 AM CAR GROOMER Graeme Finch MD LAB BLOOD ORDERABLES Final Resu lt Performing Organization Address City/[facility]/ZIP Co de Phone Number [facility] ([place]) 1 [facility] [place] [address] * (ABNORMAL) Creatine kinase (CK), total (10/05/2024 12:03 AM CAR GROOMER) [facility] CK 926(H) 40 - 300 Units/L Blood 10/05/2024 12:0 3 AM CAR GROOMER 10/05/2024 12:18 AM CAR GROOMER Graeme Finch MD LAB BLOOD ORDERABLES Final Resu lt Performing Organization Address City/[facility]/ZIP Co de Phone Number [facility] ([place]) 1 [facility] [place] [address] * (ABNORMAL) Comprehensive metabolic panel (10/05/2024 12:03 AM CAR GROOMER) [facility] Sodium 143 135 - 145 mmol/L Potassium, pl 3.2(L) 3.3 - 4.9 mmol/L [facility] ([place]) Chloride 107 97 - 110 mmol/L [facility] ([place]) CO2 21(L) 22 - 32 mmol/L [facility] ([place]) Anion gap 16(H) 2 - 15 mmol/L [facility] ([place]) BUN 8 6 - 25 mg/dL [facility] ([place]) Creatinine 0.78(L) 0.80 - 1.30 mg/dL [facility] ([place]) Glucose 71 70 - 199 mg/dL [facility] ([place]) Comment: Interpretive Data Fasting glucose [...] [facility] ([place]) Blood 10/05/2024 12:0 3 AM CAR GROOMER 10/05/2024 12:18 AM CAR GROOMER us Graeme Finch MD LAB BLOOD ORDERABLES Final Resu lt [facility] ([place]) 1 [facility] Department [place] [address] * [place] CRITICAL [facility] ILL/INJURED PATIENT INIT 30-74 MIN (10/04/2024 7:55 PM CAR GROOMER) Narrative Mp Ya MD - 10/04/2024 7:55 PM CAR GROOMER Mp Ya MD 10/04/2024 7:56 PM Critical [...] Chest 1 Vw Portable (10/04/2024 7:11 PM CAR GROOMER) Anatomical Region Laterality Modality Body, Chest N/A Computed Radiogr aphy 10/04/2024 7:50 PM CAR GROOMER Narrative 10/04/2024 7:50 PM CAR GROOMER EXAM DESCRIPTION: XR CHEST 1 VIEW REASON [...] Hosea Marrero M.D. AR: RACHNA Report ID: [id number] Reading Location: [id number] Procedure Note Hosea Marrero MD - 10/04/2024 [...] Hosea Marrero M.D. AR: RACHNA Report ID: [id number] Reading Location: [id number] Mp Ya MD IMG XR PROCEDURES Final Res ult * Troponin T high-sensitivity series (baseline, 2hr, 4hr, 6hr) (10/04/2024 6:06 PM CAR GROOMER) Trop T hs 8 <=22 ng/L Comment: Interpretive Data For further hscTnT resources including the diagnostic algorithm and an aid in interpretation, copy and paste this link: https://nrl.testcatalog.org/show/hsTrop Current Interpretive Data last revised 2020. Blood 10/04/2024 6:06 PM CAR GROOMER 10/04/2024 6:08 PM CAR GROOMER Mp Ya MD LAB BLOOD ORDERABLES Final Result [facility] ([place]) 1 [facility] [place] [address] * eGFR (10/04/2024 6:06 PM CAR GROOMER) eGFR >90 >=60 mL/min/1. 73 m2 Comment: [...] last reviewed 2021. Blood 10/04/2024 6:06 PM CAR GROOMER 10/04/2024 6:08 PM CAR GROOMER us Mp Ya MD LAB BLOOD ORDERABLES Final Result [facility] ([place]) 1 [facility] [place] [address] * Differential, auto (10/04/2024 6:06 PM CAR GROOMER) Neutrophil abs 3.2 1.5 - 6.5 K/cumm Imm gran abs 0.0 0.0 - 0.1 K/cumm [facility] ([place]) Lymphocyte abs 1.8 0.8 - 3.3 K/cumm [facility] ([place]) Monocyte abs 0.6 0.2 - 0.8 K/cumm [...] revised on 2018. Blood 10/04/2024 6:06 PM CAR GROOMER 10/04/2024 6:08 PM CAR GROOMER Mp Ya MD LAB BLOOD ORDERABLES Final Result [facility] ([place]) 1 [facility] Department [place] [address] * Pro B-type natriuretic peptide (10/04/2024 6:06 PM CAR GROOMER) NT-proBNP <36 <=300 pg/mL Comment: Interpretive Comments: [...] Heart J. 2006:27:330-337. 2. Bk RW, Marcelo RAPHAEL. J. AM Johnnie Cardiol: Cardiovasc Imag. 2009;2: 216- 225. Interpretive Data Last Revised Date: 2018. Blood 10/04/2024 6:06 PM CAR GROOMER 10/04/2024 6:08 PM CAR GROOMER us Mp Ya MD LAB BLOOD ORDERABLES Final Result [facility] ([place]) 3 [facility] Department [place] [address] * (ABNORMAL) CBC with auto differential (10/04/2024 6:06 PM CAR GROOMER) WBC 5.7 3.8 - 9.9 K/cumm Hgb 12.9(L) 13.0 - 17.5 g/dL [facility] ([place]) Hct 36.9(L) 38.9 - 50.3 % [facility] ([place]) Plt 111(L) 150 - 400 K/cumm [facility] ([place]) MPV 9.7 9.1 - 12.3 fL [facility] ([place]) RBC 4.01(L) 4.30 - 5.80 M/cumm [facility] ([place]) MCV 92.0 81.3 - 96.4 fL [facility] ([place]) MCH 32.2 27.1 - 33.3 pg [facility] ([place]) MCHC 35.0 32.3 - 35.7 g/dL [facility] ([place]) RDW CV 14.4 11.1 - 14.9 % [facility] ([place]) RDW SD 48.0 35.7 - 48.1 fL [facility] ([place]) NRBC abs 0.00 0.00 - 0.01 K/cumm [facility] ([place]) Blood 10/04/2024 6:06 PM CAR GROOMER 10/04/2024 6:08 PM CAR GROOMER Mp Ya MD LAB BLOOD ORDERABLES Final Result [facility]) 1 [facility] [place] [address] * aPTT (10/04/2024 6:06 PM CAR GROOMER) aPTT 32 28 - 38 sec [facility] ([place]) Comment: Interpretive Data Heparin therapeutic range: 66.0 - 100.0 seconds. Range based on correlation with therapeutic heparin activity range of 0.3 - 0.7 Units/mL. Current interpretive data was last revised on 2023. Blood 10/04/2024 6:06 PM CAR GROOMER 10/04/2024 6:08 PM CAR GROOMER Mp Ya MD LAB BLOOD ORDERABLES Final Result [facility] [place] 1 [place] [address] * Protime-INR (10/04/2024 6:06 PM CAR GROOMER) PT 13.0 9.7 - 13.0 sec [facility] INR 1.20 0.90 - 1.20 [facility] ([place]) Comment: Interpretive data Oral anticoagulant therapeutic ranges: Venous thromboembolism prophylaxis or treatment: 2.0-3.0 CARDIOLOGY Standard range: 2.0-3.0 High-intensity range: 2.5-3.5 Refer to indication-specific guidelines for appropriate target ranges for prosthetic heart valve replacement. Current interpretive data was last revised on 2019. Blood 10/04/2024 6:06 PM CAR GROOMER 10/04/2024 6:08 PM CAR GROOMER Mp Ya MD LAB BLOOD ORDERABLES Final Result [facility] ([place]) 1 [place] [address] * Magnesium (10/04/2024 6:06 PM CAR GROOMER) Pathologist [facility] Magnesium 1.8 1.4 - 2.5 mg/dL Blood 10/04/2024 6:06 PM CAR GROOMER 10/04/2024 6:08 PM CAR GROOMER Mp Ya MD LAB BLOOD ORDERABLES Final Result [facility] ([place]) [address] [place] [address] * Lipase (10/04/2024 6:06 PM CAR GROOMER) Lipase 48 10 - 99 Units/L Blood 10/04/2024 6:06 PM CAR GROOMER 10/04/2024 6:08 PM CAR GROOMER Mp Ya MD LAB BLOOD ORDERABLES Final Result Performing Organization Address [facility] Co de Phone Number HIRAL [place]AT[place] ([place]) 1 [facility] [place] [address] * (ABNORMAL) Creatine kinase (CK), total (10/04/2024 6:06 PM CAR GROOMER) CK 1,255(H) 40 - 300 Units/L Blood 10/04/2024 6:06 PM CAR GROOMER 10/04/2024 6:08 PM CAR GROOMER us Mp Ya MD LAB BLOOD ORDERABLES Final Result Performing Organization Address [facility] de Phone Number HIRAL [place]AT[place] ([place]) 1 [facility] [place] [address] * (ABNORMAL) Ethanol (10/04/2024 6:06 PM CAR GROOMER) Ethanol 209(H) <=10 mg/dL Comment: Interpretive Data Legal limit of intoxication > or = 80 mg/dL Levels > or = 400 mg/dL are potentially TOXIC. Current interpretive data was last revised on 2018. Blood 10/04/2024 6:06 PM CAR GROOMER 10/04/2024 6:08 PM CAR GROOMER us Mp Ya MD LAB BLOOD ORDERABLES Final Result Performing Organization Address [facility] Co de Phone Number HIRAL [place]AT[place] ([place]) 1 [facility] [place] [address] * Acetaminophen level (10/04/2024 6:06 PM CAR GROOMER) Acetaminophen <5 <=5 mcg/mL Comment: Markedly elevated [...] after ingestion Consult toxicology or poison control ([phone]) for unknown ingestion time. Current interpretive data was last revised 2023. Blood 10/04/2024 6:06 PM CAR GROOMER 10/04/2024 6:08 PM CAR GROOMER us Mp aY MD LAB BLOOD ORDERABLES Final Result Performing Organization Address [facility] Co de Phone Number HIRAL WATSON ([place]) 1 [facility] [place] [address] * Salicylate level (10/04/2024 6:06 PM CAR GROOMER) Salicylate <5.0 <=5.0 mg/dL Comment: Interpretive Data Toxic: 30 mg/dL or greater. Current interpretive data was last revised 2023. Blood 10/04/2024 6:06 PM CAR GROOMER 10/04/2024 7:51 PM CAR GROOMER us Aniya Bhakta MD LAB BLOOD ORDERABLES Fin al Result Performing Organization Address [facility] Co de Phone Number HIRAL WATSON ([place]) [address] [place] [address] [place] [address] * (ABNORMAL) Comprehensive metabolic panel (10/04/2024 6:06 PM CAR GROOMER) Sodium 141 135 - 145 mmol/L Potassium, pl 3.2(L) 3.3 - 4.9 mmol/L [facility] ([place]) Chloride 101 97 - 110 mmol/L [facility] CO2 22 22 - 32 mmol/L [facility] Anion gap 19(H) 2 - 15 mmol/L [facility] ([place] BUN 10 6 - 25 mg/dL [facility] Creatinine 0.89 0.80 - 1.30 mg/dL [facility] ([place] Comment:Icteric sample, test results may be affected. Glucose 79 70 - 199 mg/dL [facility] ([place]) Comment: Interpretive Data Fasting glucose >/= [...] Hemolyzed S pecimen Blood 10/04/2024 6:06 PM CAR GROOMER 10/04/2024 6:08 PM CAR GROOMER us Mp Ya MD LAB BLOOD ORDERABLES Final Result HIRAL [facility] ([place]) 1 [facility] Department [place] [address] * ECG 12 lead (10/04/2024 5:55 PM CAR GROOMER) 10/04/2024 5:55 PM CAR GROOMER Narrative [facility] - 10/05/2024 8:13 AM CAR GROOMER Vent Rate: 112 bpm RR Interval: 531 msec [place] Interval: 152 msec QRS Duration: 84 msec QT Interval: 362 msec QTC Interval: 429 msec P-R-T [place]: 3 - 25 - 0 degrees IMPRESSION: SINUS TACHYCARDIA ABNORMAL RHYTHM ECG compared to prior EKG heart rate increased Electronically Signed By: Krishna Wilhelm MD [facility] us Mp Ya MD ECG ORDERABLES Final Resul t [facility] * Diabetic Eye Exam (03/11/2024) us Historical Provider HEALTH MAINTENANCE Final Result * (ABNORMAL) Albumin Creatinine Ratio, Urine (03/03/2024 10:15 AM CDT) Albumin Ur 42.7 mg/L Comment: Interpretive Data No reference range established. Current interpretive data was last revised 2019. Creatinine Ur 39.9 mg/dL HIRAL [facility] Comment: Interpretive Data No reference range established. Current interpretive data was last revised 2019. Albumin Creatinine Ratio, Ur 107(H) 1 - 29 mg/g H[facility]AL [facility] Urine 03/03/2024 10:1 5 AM CDT 03/03/2024 2:46 PM CDT us Evelia Benedict NP LAB URINE ORDERABLES Fin al Result Performing Organization Address City/[facility]/ZIP Co de Phone Number HIRAL [address] Department [place] [address] * Lipid panel (03/03/2024 10:15 AM CDT) [...] 03/03/2024 2:46 PM CDT us Evelia Benedict SPINNER FIXER LAB BLOOD ORDERABLES Fin al Result Performing Organization Address [facility] de Phone Number [facility] [address] [place] [address] * Hepatitis panel, acute (06/22/2022 10:59 AM CDT) Hep A IgM Nonreactive Nonreactive [facility] Comment: Interpretive Data: If Hep A IgM Ab is reported as Equivocal, a new sample should be drawn in two weeks for testing. Current interpretive data was last revised on 20. Hep B core IgM Nonreactive Nonreactive [facility] Comment: Interpretive Data If HepB Core IgM Ab is reported as Equivocal, a new sample should be drawn in two weeks for testing. Current interpretive data was last revised on 20. Hep C Ab Nonreactive Nonreactive [facility] Comment: Interpretive Data Nonreactive: Antibodies to HCV [...] last revised on 2020. HepBsAg Nonreactive Nonreactive [facility] Blood 06/22/2022 10:5 9 AM CDT 06/22/2022 4:06 PM CDT us Rajendra Hunter SPINNER FIXER LAB MICROBIOLOGY - GENER AL ORDERABLES Final Result Performing Organization Address [facility] de Phone Number HIRAL [address] [place] [address] from Last 3 Months or Most Recently Relevant to Health Maintenance Insurance [facility] Member Subscriber Plan / Payer (Ef fective 2021-Present) Name:Manjinder Rosales Relation to Subscriber:Self Name:Manjinder Rosales Payer ID:[id number] Group ID:Not on file Type[place] Address: [address] [facility] Advance Directives For more information, please contact: [phone] * Full Code (Latest Code Status on [...] 9:50 AM 12/20/2021 3:40 PM Care Teams Lever Operator Relationship Specialty Start Date End Date Kristy Cintron MD [address] [facility] [place] [address] [place] [address] PCP - General Family Medicine 11/25/19
--- OUTSIDE RECORDS SUMMARY | 2025-01-01 12:04 | XMS_ITS | Clinical Summary ---
Author Organization [facility] Address [address] [place] [address] Phone Care Team Providers Care Home Performance Laborer Name Role Phone Kimberlee Mcclain MD Primary Care Provider Allergies Active Allergy Reactions Criticality Noted Date Comments Amoxicillin Other (See Comments) 12/26/2012 Patient cant remember side effect Medications CLOZAPINE ORALIndications: Nonspecific abnormal results of liver function study,Fatty liver Take by mouth. Active VENLAFAXINE HCL (VENLAFAXINE ORAL)Indications :Nonspecific abnormal results of liver function study,Fatty liver Take 300 mg by mouth daily. Active buPROPion XL 24 hour (WELLBUTRIN-XL) 300 mg Oral tabletIndication s:Nonspecific abnormal results of liver function study,Fatty liver Take 300 mg by mouth daily communications station manager. Active BENZTROPINE MESYLATE (BENZTROPINE ORAL)Indications :Nonspecific abnormal results of liver function study,Fatty liver Take 4 mg by mouth daily. Active OMEGA-3 ACID ETHYL ESTERS (LOVAZA ORAL)Indications :Nonspecific abnormal results of liver function study,Fatty liver Take 4 Gram by mouth daily. Active TIZANIDINE HCL (TIZANIDINE ORAL)Indications :Nonspecific abnormal results of liver function study,Fatty liver Take 12 mg by mouth. Active HYDROCODONE BIT/HOMATROPINE (HYDROCODONE-MILI ATROPINE ORAL)Indications :Nonspecific abnormal results of liver function study,Fatty liver Take by mouth. PRN Active Active Problems Problem Noted Date Diagnosed Date Nonspecific abnormal results of liver function s rosie 12/26/2012 Social History Tobacco Use Types Packs/Day Years Used Date Smoking Tobacco: Some Days Alcohol Use Standard Drinks/Week Comments Yes 0 (1 standard drink = 0.6 oz pur e alcohol) Sex and Gender Information Value Date Recorded Sex Assigned at Not on file Legal Sex Male 5:09 AM MATERIALS MGMT TECH Gender Identity Not on file Sexual Orientation Not on file Last Filed Vital Signs Vital Sign Reading Time Taken Comments Blood Pressure 130/86 12/26/2012 1:16 PM MATERIALS MGMT TECH Pulse - - Temperature - - Respiratory Rate - - Oxygen Saturation - - Inhaled Oxygen Concentration - - Weight 113.9 kg (251 lb) 12/26/2012 1:16 PM MATERIALS MGMT TECH Height 180.3 cm (5' 11 ) 12/26/2012 1:16 PM MATERIALS MGMT TECH Body Mass Index 35.01 12/26/2012 1:16 PM MATERIALS MGMT TECH Plan of Treatment Health Maintenance Due Date Last Done Comments DTAP/TDAP/TD VACCINES (1 - Tdap) 2008 HEPATITIS B VACCINES (1 of 3 - 19+ 3-dose series) 2008 INFLUENZA VACCINE (#1) 2024 HPV VACCINES Aged Out No longer eligi ble based on patient's age to complete this topic Insurance MEDICARE PART A AND B [place]ICAID [place] Care Teams Home Performance Laborer Relationship Specialty Start Date End Date Kimberlee Mcclain MD [address] [place] [address] PCP - General Family Practice 12/26/12
--- OUTSIDE RECORDS SUMMARY | 2025-01-01 12:04 | XMS_ITS | Encounter Summary ---
Author Organization [facility] Address [address] [place] [address] Care Team Providers Care Pencil Maker Name Role Phone Kristy Cintron MD Primary Care Provi glen Encounter Details Date Type Department Care Team (Late st Contact Info) Description 03/19/2024 9:32 AM CDT Hospital Encounter [facility] Medical Group Orthopedics and Sports Medicine at [address] [phone] Social History Tobacco Use Types Packs/Day Years Used Date Smoking Tobacco: Every Day Vaping Last attempted to quit: 04/12/2021 Smokeless Tobacco: Former Chew Alcohol Use Standard Drinks/Week Comments Yes 0 (1 standard drink = 0.6 oz pur e alcohol) [facility] Utilities Answer Date Recorded In the past 12 months has [employer] electric, gas, oil, or water company threatened to shut off services in your [...] often do you attend chur ch or anglican services? Never 11/16/2024 Do you belong to any clubs o r organizations such as taoist groups, unions, fraternal or athletic groups, or [...] any time in the past 12 m [facility], were you homeless or living in a halfway (including now)? No 11/16/2024 Personal Safety Answer Date Recorded Have you ever been in or are you currently in a harmful physical or emotional relationship or is someone making you feel afraid or unsafe? Denies 10/04/2024 Sex and Gender Information Value Date Recorded Sex Assigned at Not on file Legal Sex Male 1:54 AM CARDIAC RN Gender Identity Not on file Sexual Orientation Straight 11/13/2024 10 :04 AM CARDIAC RN documented as of this encounter Functional Status * Audit-C Score Answer Date of Assessment Author 0 11/13/2024 10:04 AM Carmel Scott MA * Question Answer Date of Assessment Author Q1: How often do you have a drink containing alcohol? Never 11/13/2024 10:04 AM Nithin Scott MA Q2: How many drinks containing alcohol do you have on a typical day when you are drinking? Patient does not drink 11/13/2024 10:04 AM Nithin Scott MA Q3: How often do you have six or more drinks on one occasion? Never 11/13/2024 10:04 AM Nithin Scott MA documented as of this encounter Plan of Treatment Not on file documented as of this encounter Goals Goal Patient Goal Type Associated Problems Recent Progress Patient-Stated? Author ACO SW Goal - Patient can identify and utilize mental health community resources ACO Care Management On track(2023 2:15 PM CDT) No Charley Reece, LINEN SUPPLY LOAD BUILDER Note: Problem: Mental Health Resources needed Interventions: - Assess for mental health resource needs. - Assess readiness for change. - Provide patient with MH Resource options. - Provide information regarding insurance coverage of specific resources and levels of care. - Follow-up to assess barriers to establishing connection with resources, if applicable. documented as of this encounter Procedures Procedure Name Priority Date/Time Associated Diagnosis Comments XR CLAVICLE RIGHT COMPLETE Schedule Routine, Read Routine (OP Routine) 03/19/2024 9:34 AM CDT Right shoulder pain, unspecified chronicity documented in this encounter Results * XR Clavicle Right Complete (03/19/2024 9:34 AM CDT) Anatomical Region Laterality Modality Clavicle, Chest Right Digital Radiogra phy Narrative 03/19/2024 10:17 AM CDT X-rays right clavicle obtained and reviewed he has a grade 3 AC separation appears to be some chronic avulsion injuries of the distal clavicle. There also appears to be a bony Bankart about his inferior glenoid that appears chronic in nature as well. us Mamadou Wang MD IMG XR PROCEDURES Final Re sult documented in this encounter Visit Diagnoses Not on filedocumented in this encounter Additional Health Concerns Infection Onset Date Last Indicated Resolved Time COVID: Suspected 07/22/2024 07/22/2024 07/22/2024 12:43 PM CDT documented as of this encounter Care Teams Pencil Maker Relationship Specialty Start Date End Date Kristy Cintron MD [address] [facility] [address] [address] [place] [address] PCP - General Family Medicine 11/25/19 documented as of this encounter
--- OUTSIDE RECORDS SUMMARY | 2025-01-01 12:04 | XMS_ITS | Encounter Summary ---
Author Organization [employer] Address [address] [place] [address] Care Team Providers Care Nurse Reviewer Name Role Phone Kimberlee Mcclain MD Primary Care Provider Encounter Details Date Type Department Care Team (Late st Contact Info) Description 08/25/2001 Outpatient Historical [facility] DEPT OF FAMILY MEDIC[facility] Zhao Pagan MD [address] [place] [address] [address] [place] [id number] Social History Tobacco Use Types Packs/Day Years Used Date Smoking Tobacco: Never Assessed Sex and Gender Information Value Date Recorded Sex Assigned at Not on file Legal Sex Male 5:09 AM CAREER SERVICES MANAGER Gender Identity Not on file Sexual Orientation Not on file documented as of this encounter Plan of Treatment Not on file documented as of this encounter Visit Diagnoses Not on filedocumented in this encounter Care Teams Nurse Reviewer Relationship Specialty Start Date End Date Kimberlee Mcclain MD [address] [place] [phone] PCP - General Family Practice 12/26/12 documented as of this encounter
--- OUTSIDE RECORDS SUMMARY | 2025-01-01 12:04 | XMS_ITS | Clinical Summary ---
Author Organization [facility] [employer] Address [address] [place] [address] Care Team Providers Care Manager Neonatal Name Role Phone None, Physician Primary Care Provider Unavailabl e Source Comments [facility],non-owned Affiliates and Associated Physician Practices is amultiple site organization consisting of ambulatory clinics and hospital sitesin [place], [place], [place] and [place]. This disclosure is being madepursuant to the Care Everywhere program and may not contain all information available regarding this patient. Last updated 18.[facility] [employer] Allergies Active Allergy Reactions Criticality Noted Date Comments Amoxicillin Urticaria Medium 12/15/2015 Aspirin GI Discomfort 11/19/2024 Pt gets ulcers so informed to stop taking it Risperidone Other 09/25/2024 Gynecomastia Tramadol Other 12/15/2015 seizure Medications * Be aware that medications may not be up to date on this document. Alwaysverify current medications with the patient. Medication Sig Dispensed Refills Start Date End Date Status FLUoxetine (PROzac) 20 MG capsuleIndication s:Depression Take 2 (two) capsules by mouth once daily Reasons: Depression Active semaglutide (Rybelsus) 14 MG tabletIndications :Type 2 Diabetes Mellitus Take 1 (one) tablet by mouth once daily Reasons: Type 2 Diabetes 11/13/2023 Active icosapent ethyl (Vascepa) 1 g capsuleIndication s:Hypertriglyceri demia Take 1 (one) capsule by mouth 2 times daily with morning and evening meal Reasons: High Amount of Triglycerides in the Blood Active mirtazapine (Remeron) 7.5 MG tabletIndications :Major Depressive Disorder Take 1 (one) tablet by mouth at bedtime Reasons: Major Depressive Disorder Active melatonin 3 MG tabletIndications :Insomnia Take 10 mg by mouth at bedtime Reasons: Trouble Sleeping Active atorvastatin (Lipitor) 40 MG tabletIndications :Hyperlipidemia Take 1 (one) tablet by mouth at bedtime Reasons: High Amount of Fats in the Blood Active paliperidone palmitate ER (Invega Sustenna) 156 MG/ML injectionIndicati ons:Schizophrenia Inject 156 (one hundred fifty six) mg into muscle once Active buPROPion XL 24hr (Wellbutrin-XL) 150 MG tabletIndications :Major Depressive Disorder Take 1 (one) tablet by mouth once daily Reasons: Major Depressive Disorder 30 tablet 09/24/2024 Active OLANZapine (ZyPREXA) 20 MG tabletIndications :Schizophrenia Take 1 (one) tablet by mouth at bedtime Reasons: Schizophrenia 30 tablet 09/24/2024 Active OLANZapine (ZyPREXA) 5 MG tabletIndications :Schizophrenia Take 1 (one) tablet by mouth 2 times daily with morning and evening meal Reasons: Schizophrenia 60 tablet 09/24/2024 Active chlordiazePOXIDE (Librium) 10 MG capsule 3 tab tid x 1 day, then 2 tab po tid x 1 day, then 1 tab po tid x 1 day 18 capsule 11/19/2024 Active pantoprazole EC (Protonix) 40 MG tablet Take 1 (one) tablet by mouth once daily 30 tablet 11/19/2024 Active ondansetron, disintegrating, (Zofran ODT) 4 MG tablet Take 1 (one) tablet by mouth every 6 hours as needed for Nausea/Vomiting Allow tablet to dissolve on the tongue 20 tablet 11/19/2024 Active Active Problems Problem Noted Date Diagnosed Date Schizophrenia, unspecified type 09/20/2024 S/P ACL reconstruction 05/18/2020 S/P medial meniscal repair 05/18/2020 Complete tear of anterior cruciate ligament of l eft knee 04/27/2020 Bucket-handle tear of medial meniscus of left knee as current injury 04/27/2020 Alcohol use disorder, moderate, dependence 04/11 Schizophrenia 04/07/2019 Encounters Date Type Department Care Team Description 11/19/2024 11:51 AM INTERNAL MEDICINE NURSE PRACTITIONER - 11/19/2024 3:36 PM INTERNAL MEDICINE NURSE PRACTITIONER Emergency ER at [facility] [address] [place] [address] Seizure (HCC) (Primary Dx); Hematemesis with nausea; Alcohol use disorder Discharge Disposition: Home or Self Care 11/19/2024 Travel from Last 3 Months Social History Tobacco Use Types Packs/Day Years Used Date Smoking Tobacco: Every Day Cigarettes 1 14 Smokeless Tobacco: Never Tobacco Cessation:Ready to Q uit: No; Counseling Given: No Comments:Cigarettes and e-cig Alcohol Use Standard Drinks/Week Comments Yes 0 (1 standard drink = 0.6 oz pur e alcohol) pint of alcohol per day AUDIT-C Answer Date Recorded Q1: How often do you have a drink containing alcohol? 4 or more times a week 09/20/2024 Q2: How many drinks containi ng alcohol do you have on a typical day when you are drinking? 5 or 6 Q3: How often do you have si x or more drinks on one occasion? Daily or almost daily 09/20/2024 Overall Financial Resource Strain (CARDIA) Answe r Date Recorded How hard is it for you to pa y for the very basics like food, housing, medical care, and heating? Patient declined 09/20/2024 PHQ-2 Answer Date Recorded Patient Health Questionnaire-2 Score 6 09/20/2024 [facility] - Occupational Stress Questionnaire Answer Date Recorded Do you feel stress - tense, restless, nervous, or anxious, or unable to sleep at night because your mind is troubled all the time - these days? Patient declined 09/20/2024 Hunger Vital Sign Answer Date Recorded Within the past 12 months, y ou worried that your food would run out before you got the money to buy more. Patient declined Within the past 12 months, t he food you bought just didn't last and you didn't have money to get more. Patient declined 08/2024 PRAPARE - Transportation Answer Date Re corded In the past 12 months, has l ack of transportation kept you from medical appointments or from getting medications? Patient declined 09/20/2024 In the past 12 months, has l ack of transportation kept you from meetings, work, or from getting things needed for daily living? Patient declined 09/20/2024 Housing Stability Vital Sign Answer Girma e Recorded In the last 12 months, was t here a time when you were not able to pay the mortgage or rent on time? Patient declined 09/20/20 24 In the past 12 months, how m any times have you moved where you were living? 0 09/20/2024 At any time in the past 12 m [facility], were you homeless or living in a penitentiary (including now)? Patient declined 09/20/2024 Sex and Gender Information Value Date Recorded Sex Assigned at Not on file Gender Identity Not on file Sexual Orientation Not on file Last Filed Vital Signs Vital Sign Reading Time Taken Comments Blood Pressure 146/100 11/19/2024 2:45 PM INTERNAL MEDICINE NURSE PRACTITIONER Pulse 116 11/19/2024 2:45 PM INTERNAL MEDICINE NURSE PRACTITIONER Temperature 36.6 C (97.9 F) 11/19/2024 11:56 AM INTERNAL MEDICINE NURSE PRACTITIONER Respiratory Rate 12 11/19/2024 2:45 PM INTERNAL MEDICINE NURSE PRACTITIONER Oxygen Saturation 98% 11/19/2024 2:45 PM INTERNAL MEDICINE NURSE PRACTITIONER Inhaled Oxygen Concentration - - Weight 104.3 kg (230 lb) 11/19/2024 11:56 AM INTERNAL MEDICINE NURSE PRACTITIONER Height 180.3 cm (5' 11 ) 11/19/2024 11:56 AM INTERNAL MEDICINE NURSE PRACTITIONER Body Mass Index 32.08 11/19/2024 11:56 AM INTERNAL MEDICINE NURSE PRACTITIONER Plan of Treatment Health Maintenance Due Date Last Done Comments HIV SCREENING 2004 HEPATITIS C SCREENING 04/01/2007 DTAP/TDAP/TD VACCINES (1 - Tdap) 2008 HEPATITIS B VACCINE (1 of 3 - 19+ 3-dose series) 2008 PNEUMOCOCCAL VACCINE (1 of 2 - PCV) 2008 COVID-19 VACCINE (3 - season) 2024 07/12/2021, 06/19/2021 INFLUENZA VACCINE (#1) 2024 , 08/24/2022, 08/30/2021, Additional history exists DEPRESSION SCREENING 11/11/2024 MEDICARE AWV CALENDAR YEAR 2024 ZOSTER VACCINE (1 of 2) 2039 HIB VACCINE Aged Out No longer eligi ble based on patient's age to complete this topic HPV VACCINE Aged Out No longer eligi ble based on patient's age to complete this topic MENINGOCOCCAL (Group B) VACCINE Aged Out No longer eligible based on patient's age to complete this topic MENINGOCOCCAL VACCINE Aged Out No alice jazzy eligible based on patient's age to complete this topic Medical Devices Implanted Type Area Cutter Helper Device Identifier Shelf Expiration Date Model / Serial / Lot Btn Fx 11mm Tghtrp Rnd Cncv [facility] - [id number] Implanted:Qty: 1 on 05/05/2020 by Janes Villafana MD at [facility] Left: Knee [employer] 11/10/2024 AR-1588TB-3 / [id number] / [place] Sut Fiberstitch Fbrwr Polystr 2-0 Implanted:Qty: 2 on 05/05/2020 by Janes Villafana MD at [facility] Left: Knee [employer] 09/10/2024 AR-4570 / / [id number] Dev Fx Tghtrp Fibertag Acl Abs Disp Implanted:Qty: 1 on 05/05/2020 by Janes Villafana MD at [facility] Left: Knee [employer] 11/10/2024 AR-1588TNT / / [id number] Dev Fx Tghtrp Fibertag Acl Rt Disp Implanted:Qty: 1 on 05/05/2020 by Janes Villafana MD at [facility] Left: Knee [employer] 10/10/2024 AR-1588RTT / / [id number] Pack Srg Graftlink Atgrft Implanted:Qty: 1 on 05/05/2020 by Janes Villafana MD at [facility] Left: Knee [employer] 12/11/2024 AR-1588AU-C P / / [id number] Sys Fx Acl Implanted:Qty: 1 on 05/05/2020 by Janes Villafana MD at [facility] Left: Knee [employer] 12/11/2021 AR-1593 / / [id number] [place] Sut Fiberstitch Fbrwr Polystr 2-0 Implanted:Qty: 1 on 05/05/2020 by Janes Villafana MD at [facility] Left: Knee [employer] 07/11/2024 AR-4570 / / [id number] Explanted Type Area Cutter Helper Device Identifier Shelf Expiration Date Model / Serial / Lot Sut Fibertape Fbrwr 2 Tpr 54in Catarino Brd Explanted:Qty: 1 on 05/05/2020 at [facility] Left: Knee [employer] AR-7237 / / [place] Sut Fiberstitch Fbrwr Polystr 2-0 Implanted:Qty: 1 Explanted:Qty: 1 on 05/05/2020 at [facility] Left: Knee [employer] 07/11/2024 AR-4570 / / [id number] Description:failed implant. device not working properly. [place] Sut Fiberstitch Fbrwr Polystr 2-0 Implanted:Qty: 1 Explanted:Qty: 1 on 05/05/2020 at [facility] Left: Knee [employer] 07/10/2024 AR-4570 / / [id number] Description:failed implant. device not working properly. [place] Sut Fiberstitch Fbrwr Polystr 2-0 Implanted:Qty: 1 Explanted:Qty: 1 on 05/05/2020 at [facility] Left: Knee [employer] 07/11/2024 AR-4570 / / [id number] Description:failed implant. device not working properly. Procedures Procedure Name Priority Date/Time Associated Diagnosis Comments CARDIAC EKG ORDER 11/20/2024 4:0 5 PM INTERNAL MEDICINE NURSE PRACTITIONER CT HEAD WO CONTRAST STAT 11/19/2024 1 :16 PM INTERNAL MEDICINE NURSE PRACTITIONER Seizure (HCC) MAGNESIUM BLOOD Add on 11/19/2024 12:06 PM INTERNAL MEDICINE NURSE PRACTITIONER LIPASE BLOOD Add on 11/19/2024 12:06 PM INTERNAL MEDICINE NURSE PRACTITIONER COMPREHENSIVE METABOLIC PANEL STAT 11/19/2024 12:06 PM INTERNAL MEDICINE NURSE PRACTITIONER CBC W AUTO DIFFERENTIAL STAT 11/19/2024 12:06 PM INTERNAL MEDICINE NURSE PRACTITIONER EKG 12-LEAD STAT 11/19/2024 12:04 PM INTERNAL MEDICINE NURSE PRACTITIONER Seizure (HCC) from Last 3 Months Results * CARDIAC EKG ORDER (11/20/2024 4:05 PM INTERNAL MEDICINE NURSE PRACTITIONER) Narrative 11/20/2024 4:05 PM INTERNAL MEDICINE NURSE PRACTITIONER Ordered by an unspecified provider. Scanned Document CARDIAC SERVICES ORD ERABLES * CT HEAD - NON CONTRAST (11/19/2024 1:16 PM INTERNAL MEDICINE NURSE PRACTITIONER) Anatomical Region Laterality Modality Head Computed Tomogra phy 11/19/2024 1:17 PM INTERNAL MEDICINE NURSE PRACTITIONER Impressions 11/19/2024 1:18 PM INTERNAL MEDICINE NURSE PRACTITIONER IMPRESSION: No acute intracranial abnormality. All CT scans at [facility] are performed using dose optimization techniques as appropriate to a performed exam to include AEC and Adjustment of mA and/or kV according to patient size (as appropriate to indication/reason for exam). > Interpreting Provider: Lior Olivera MD on 11/19/2024 1:18 PM Narrative 11/19/2024 1:18 PM INTERNAL MEDICINE NURSE PRACTITIONER PROCEDURE: CT HEAD WO CONTRAST DATE/TIME OF EXAM: 11/19/2024 1:16 PM INDICATION: R56.9: Unspecified convulsions (HCC) COMPARISON: 2019 ADDITIONAL CLINICAL INFORMATION (if provided): Ordering Provider Reason For Exam: Viz. ICH was performed to evaluate for intracranial hemorrhage. TECHNIQUE: A CT of the brain was performed without contrast administration. Contrast:None The brain parenchyma and ventricular system are within normal limits. There is no hemorrhage, mass, or mass effect. No extra-axial fluid collection is seen. Bone windows demonstrates clear paranasal sinuses and mastoids. No skull fracture is seen. Procedure Note Lior Olivera MD - 11/19/2024 PROCEDURE: CT HEAD WO CONTRAST DATE/TIME OF EXAM: 11/19/2024 1:16 PM INDICATION: R56.9: Unspecified convulsions (HCC) COMPARISON: 2019 ADDITIONAL CLINICAL INFORMATION (if provided): Ordering Provider Reason For Exam: Viz. ICH was performed to evaluate for intracranial hemorrhage. TECHNIQUE: A CT of the brain was performed without contrastadministration. Contrast:None The brain parenchyma and ventricular system are within normal limits.There is no hemorrhage, mass, or mass effect. No extra-axial fluid collection is seen. Bone windows demonstrates clear paranasal sinuses and mastoids. No skull fracture is seen. IMPRESSION: No acute intracranial abnormality. All CT scans at [facility] are performed using dose optimization techniques as appropriate to a performed exam to include AEC and Adjustment of mAand/or kV according to patient size (as appropriate to indication/reason for exam). > Interpreting Provider: Lior Olivera MD on 11/19/2024 1:18 PM Melvin Castillo PA-C CT ORDERABLES * (ABNORMAL) CBC W AUTO DIFFERENTIAL (11/19/2024 12:06 PM [facility]) WBC 4.9 4.0 - 10.7 x10E9/L 11/19/2024 12:20 PM [facility] RBC Count 4.28(L) 4.30 - 5.80 x10E12/L 11/19/2024 12:20 PM [facility] Hemoglobin 14.3 13.3 - 17.5 g/dL 11/19/2024 12:20 PM [facility] Hematocrit 39.8 38.7 - 51.1 % 11/19/2024 12:20 PM [facility] MCV 93.0 80.0 - 98.0 fL 11/19/2024 12:20 PM [facility] MCH 33.4 26.7 - 33.6 pg 11/19/2024 12:20 PM [facility] MCHC 35.9 31.7 - 36.3 g/dL 11/19/2024 12:20 PM [facility] RDW-CV 14.4 11.3 - 14.8 % 11/19/2024 12:20 PM [facility] Platelet Count 100(L) 150 - 420 x10E9/L 11/19/2024 12:20 PM [facility] MPV 9.6 7.8 - 11.4 fL 11/19/2024 12:20 PM [facility] Neutrophil % 80.7(H) 41.0 - 74.0 % 11/19/2024 12:20 PM [facility] Lymphocyte % 12.0(L) 17.0 - 47.0 % 11/19/2024 12:20 PM [facility] Monocyte % 7.1 3.0 - 11.0 % 11/19/2024 12:20 PM [facility] Eosinophil % 0.0 0.0 - 7.0 % 11/19/2024 12:20 PM [facility] Basophil % 0.0 0.0 - 1.6 % 11/19/2024 12:20 PM [facility] Immature Granulocytes % 0.2 0.0 - 1.0 % 11/19/2024 12:20 PM [facility] Neutrophil Absolute 3.95 1.60 - 7.50 x10E9/L 11/19/2024 12:20 PM [facility] Lymphocyte Absolute 0.59(L) 1.00 - 4.40 x10E9/L 11/19/2024 12:20 PM [facility] Monocyte Absolute 0.35 0.15 - 1.00 x10E9/L 11/19/2024 12:20 PM [facility] Eosinophil Absolute 0.00 0.00 - 0.60 x10E9/L 11/19/2024 12:20 PM [facility] Basophil Absolute 0.00 0.00 - 0.13 x10E9/L 11/19/2024 12:20 PM [facility] Blood BLOOD SPECIMEN / Unknown Venipuncture / Unknown 11/19/2024 12:06 PM INTERNAL MEDICINE NURSE PRACTITIONER 11/19/2024 12:08 PM [facility] Ronna Huynh DO LAB - HEMATOLOGY ORDERABLES [facility] [address] [place] [address] * (ABNORMAL) COMPREHENSIVE METABOLIC PANEL (11/19/2024 12:06 PM [facility]) [facility] Glucose 126(H) 70 - 99 mg/dL 11/19/2024 12:32 PM [facility] Sodium 139 136 - 145 mmol/L 11/19/2024 12:32 PM [facility] Potassium 3.3(L) 3.5 - 5.1 mmol/L 11/19/2024 12:32 PM [facility] Chloride 105 98 - 107 mmol/L 11/19/2024 12:32 PM [facility] CO2 18(L) 22 - 29 mmol/L 11/19/2024 12:32 PM [facility] Calcium 8.5 8.4 - 10.4 mg/dL 11/19/2024 12:32 PM [facility] Anion Gap 16 6 - 16 mmol/L 11/19/2024 12:32 PM [facility] BUN 7 5.3 - 18.7 mg/dL 11/19/2024 12:32 PM [facility] Creatinine 1.01 0.72 - 1.25 mg/dL 11/19/2024 12:32 PM [facility] Alkaline Phosphatase 135 40 - 150 U/L 11/19/2024 12:32 PM [facility] ALT 85(H) 0 - 55 U/L 11/19/2024 12:32 PM [facility] AST 180(H) 5 - 34 U/L 11/19/2024 12:32 PM [facility] Protein Total 7.0 6.4 - 8.3 gm/dL 11/19/2024 12:32 PM [facility] Albumin 3.8 3.4 - 5.0 gm/dL 11/19/2024 12:32 PM [facility] Bilirubin Total 1.5(H) 0.2 - 1.2 mg/dL 11/19/2024 12:32 PM [facility] eGFR by CKD-EPI >90 >=90 mL/min/1.7 3 m2 11/19/2024 12:32 PM [facility] Blood BLOOD SPECIMEN / Unknown Venipuncture / Unknown 11/19/2024 12:06 PM [facility] 11/19/2024 12:08 PM [facility] Ronna Huynh DO LAB - CHEMISTRY O RDERABLES [facility] [address] [place] [address] * MAGNESIUM BLOOD (11/19/2024 12:06 PM [facility]) Magnesium 2.1 1.6 - 2.6 mg/dL 11/19/2024 12:42 PM [facility] Blood BLOOD SPECIMEN / Unknown Venipuncture / Unknown 11/19/2024 12:06 PM INTERNAL MEDICINE NURSE PRACTITIONER 11/19/2024 12:08 PM INTERNAL MEDICINE NURSE PRACTITIONER Melvin Castillo PA-C LAB - [employer] FINANCE OFFICER RY ORDERABLES Performing Organization Address City/[facility]/ZIP Co de Phone Number [facility] [address] [place] [address] * LIPASE BLOOD (11/19/2024 12:06 PM INTERNAL MEDICINE NURSE PRACTITIONER) Lipase 44 <60 U/L 11/19/2024 12:42 PM INTERNAL MEDICINE NURSE PRACTITIONER [facility] Blood BLOOD SPECIMEN / Unknown Venipuncture / Unknown 11/19/2024 12:06 PM INTERNAL MEDICINE NURSE PRACTITIONER 11/19/2024 12:08 PM INTERNAL MEDICINE NURSE PRACTITIONER Melvin Castillo PA-C LAB - [employer] FINANCE OFFICER RY ORDERABLES Performing Organization Address [facility] Co de Phone Number [facility] [address] [place] [address] * EKG 12-LEAD (11/19/2024 12:04 PM INTERNAL MEDICINE NURSE PRACTITIONER) Ventricular Rate 118 BPM [facility] Atrial Rate 118 BPM [facility] P-R Interval 150 ms [facility] QRS Duration ms 76 ms [facility] Q-T Interval ms 326 ms [facility] QTC Calculation (Bezet) 456 ms [facility] Calculated P Mission 24 degrees [facility] Calculated R Mission 45 degrees [facility] Calculated T Mission 18 degrees [facility] Interpretation EKG Sinus tachycardia Otherwise normal ECG No previous ECGs available Confirmed by DELMA POMPA MD ([id number]) on 11/20/2024 5:30:07 PM [facility] 11/19/2024 12:0 4 PM INTERNAL MEDICINE NURSE PRACTITIONER 11/20/2024 5:30 PM INTERNAL MEDICINE NURSE PRACTITIONER Ronna Huynh DO ECG ORDERABLES Performing Organization Address City/[facility] Co de Phone Number [facility] MUSE from Last 3 Months Advance Directives * Full Code (Latest Code Status on File) Date Activated Date Inactivated Comments 09/20/2024 10:53 PM 09/26/2024 11:20 AM * Full Code Date Activated Date Inactivated Comments 12/22/2019 7:57 PM 12/25/2019 7:18 PM * Full Code Date Activated Date Inactivated Comments 04/07/2019 3:45 AM 04/11/2019 4:04 PM Care Teams Manager Neonatal Relationship Specialty Start Date End Date None, Physician [id number] [place] [address] PCP - General 11/19/24
--- OUTSIDE RECORDS SUMMARY | 2025-01-01 12:04 | XMS_ITS | Referral Summary ---
Author Organization [facility] Address [address] [place] [address] Care Team Providers Care Publication Distributor Name Role Phone None, Physician Primary Care Provider Unavailabl e Source Comments [facility],non-owned Affiliates and Associated Physician Practices is amultiple site organization consisting of ambulatory clinics and hospital sitesin [place], [place], [place] and [place]. This disclosure is being madepursuant to the Care Everywhere program and may not contain all information available regarding this patient. Last updated 18.[facility] Encounters Date Type Department Care Team Description 11/19/2024 Travel 11/19/2024 11:51 AM [facility] - 11/19/2024 3:36 PM [facility] Emergency ER at [address] [address] Seizure (HCC) (Primary Dx); Hematemesis with nausea; Alcohol use disorder Discharge Disposition: Home or Self Care from Last 3 Months Allergies Active Allergy [...] use disorder, moderate, dependence 04/11 Schizophrenia 04/07/2019 Social History Tobacco Use Types Packs/Day Years [...] Recorded Patient Health Questionnaire-2 Score 6 09/20/2024 [facility] [place] [facility] - Occupational Stress [...] any time in the past 12 m [facility], were you homeless or living in a detention (including now)? Patient declined 09/20/2024 Sex and Gender Information Value Date Recorded Sex Assigned at Not on file Gender Identity Not on file Sexual Orientation Not on file Last Filed Vital Signs Vital Sign Reading Time Taken Comments Blood Pressure 146/100 11/19/2024 2:45 PM [facility] Pulse 116 11/19/2024 2:45 PM [facility] Temperature 36.6 C (97.9 F) 11/19/2024 11:56 AM [facility] Respiratory Rate 12 11/19/2024 2:45 PM [facility] Oxygen Saturation 98% 11/19/2024 2:45 PM [facility] Inhaled Oxygen Concentration - - Weight 104.3 kg (230 lb) 11/19/2024 11:56 AM [facility] Height 180.3 cm (5' 11 ) 11/19/2024 11:56 AM [facility] Body Mass Index 32.08 11/19/2024 11:56 AM [facility] Functional Status Functional Status Response Date of Assess ment Is person deaf or have serious hearing difficult y? No 09/26/2024 Is person blind or have serious difficulty seein g? No 09/26/2024 Does person have serious dif ficulty walking/climbing stairs? No 09/26/2024 Does person have difficulty dressing/bathing? No 09/26/2024 Does person have difficulty doing errands alone? No 09/26/2024 Cognitive Status Response Date of Assessm ent Does person have difficulty concentrating/remembering/making decisions? No 09/26/2024 Plan of Treatment Not on file Medical Devices Implanted Type Area Gasser Machine Operator Device Identifier Shelf Expiration Date Model / Serial / Lot Btn Fx 11mm Tghtrp Rnd Cncv [facility] - [id number] Implanted:Qty: 1 on 05/05/2020 by Janes Villafana MD at [facility] Left: Knee [employer] 11/10/2024 AR-1588TB-3 / [id number] / [place] Sut Fiberstitch Fbrwr Polystr 2-0 Implanted:Qty: 2 on 05/05/2020 by Janes Villafana MD at [facility] Left: Knee [employer] 09/10/2024 AR-4570 / / [id number] Dev Fx Tghtrp Fibertag Acl Abs Disp Implanted:Qty: 1 on 05/05/2020 by Janes Villafana MD at [facility] Left: Knee [employer] 11/10/2024 AR-1588TNT / / [id number] Dev Fx Tghtrp Fibertag Acl Rt Disp Implanted:Qty: 1 on 05/05/2020 by Janes Villafana MD at [facility] Left: Knee [employer] 10/10/2024 AR-1588RTT / / [id number] Pack Srg Graftlink Atgrft Implanted:Qty: 1 on 05/05/2020 by Janes Villafana MD at [facility] Left: Knee [employer] 12/11/2024 AR-1588AU-C P / / [id number] Sys Fx Acl Implanted:Qty: 1 on 05/05/2020 by Janes Villafana MD at [facility] Left: Knee [employer] 12/11/2021 AR-1593 / / [id number] [place] Sut Fiberstitch Fbrwr Polystr 2-0 Implanted:Qty: 1 on 05/05/2020 by Janes Villafana MD at [facility] Left: Knee [employer] 07/11/2024 AR-4570 / / [id number] Explanted Type Area Gasser Machine Operator Device Identifier Shelf Expiration Date Model / Serial / Lot Sut Fibertape Fbrwr 2 Tpr 54in [place] Brd Explanted:Qty: 1 on 05/05/2020 at [facility] Left: Knee [employer] AR-7237 / / [place] Sut Fiberstitch Fbrwr Polystr 2-0 Implanted:Qty: 1 Explanted:Qty: 1 on 05/05/2020 at [facility] Left: Knee [employer] 07/11/2024 AR-4570 / / [id number] Description:failed implant. device not working properly. [place] Sut Fiberstitch Fbrwr Polystr 2-0 Implanted:Qty: 1 Explanted:Qty: 1 on 05/05/2020 at [facility] Left: Knee [employer] 07/10/2024 AR-4570 / / [id number] Description:failed implant. device not working properly. [place] Sut Fiberstitch Fbrwr Polystr 2-0 Implanted:Qty: 1 Explanted:Qty: 1 on 05/05/2020 at [facility] Left: Knee [employer] 07/11/2024 AR-4570 / / [id number] Description:failed implant. device not working properly. Procedures Procedure Name Priority Date/Time Associated Diagnosis Comments CARDIAC EKG ORDER 11/20/2024 4:[address] HEAD WO CONTRAST STAT 11/19/2024 1 :16 PM [facility] Seizure (HCC) MAGNESIUM BLOOD Add on 11/19/2024 12:06 PM [facility] LIPASE BLOOD Add on 11/19/2024 12:06 PM [facility] COMPREHENSIVE METABOLIC PANEL STAT 11/19/2024 12:06 PM [facility] CBC W AUTO DIFFERENTIAL STAT 11/19/2024 12:06 PM [facility] EKG 12-LEAD STAT 11/19/2024 12:04 PM [facility] Seizure (HCC) from Last 3 Months Results * CARDIAC EKG ORDER (11/20/2024 4:05 PM [facility]) Narrative 11/20/2024 4:05 PM [facility] Ordered by an unspecified provider. Scanned Document CARDIAC SERVICES ORD ERABLES * CT HEAD - NON CONTRAST (11/19/2024 1:16 PM [facility]) Anatomical Region Laterality Modality Head Computed Tomogra phy 11/19/2024 1:17 PM [facility] Impressions 11/19/2024 1:18 PM [facility] IMPRESSION: No acute intracranial abnormality. All CT scans at [facility] are performed using dose optimization techniques as appropriate to a performed exam to include AEC and Adjustment of mA and/or kV according to patient size (as appropriate to indication/reason for exam). > Interpreting Provider: Lior Olivera MD on 11/19/2024 1:18 PM Narrative 11/19/2024 1:18 PM [facility] PROCEDURE: CT HEAD WO CONTRAST DATE/TIME OF [...] acute intracranial abnormality. All CT scans at [facility] are performed using dose optimization techniques as appropriate to a performed exam to include AEC and Adjustment of mAand/or kV according to patient size (as appropriate to indication/reason for exam). > Interpreting Provider: Lior Olivera MD on 11/19/2024 1:18 PM Melvin Luca Malench PA-C CT ORDERABLES * (ABNORMAL) CBC W AUTO DIFFERENTIAL (11/19/2024 12:06 PM [facility]) WBC 4.9 4.0 - 10.7 x10E9/L 11/19/2024 12:[address] [facility] RBC Count 4.28(L) 4.30 - 5.80 x10E12/L 11/19/2024 12:[address] [facility] Hemoglobin 14.3 13.3 - 17.5 g/dL 11/19/2024 12:[address] [facility] Hematocrit 39.8 38.7 - 51.1 % 11/19/2024 12:[address] [facility] MCV 93.0 80.0 - 98.0 fL 11/19/2024 12:[address] [facility] MCH 33.4 26.7 - 33.6 pg 11/19/2024 12:[address] [facility] MCHC 35.9 31.7 - 36.3 g/dL 11/19/2024 12:[address] [facility] RDW-CV 14.4 11.3 - 14.8 % 11/19/2024 12:[address] [facility] Platelet Count 100(L) 150 - 420 x10E9/L 11/19/2024 12:[address] [facility] MPV 9.6 7.8 - 11.4 fL 11/19/2024 12:[address] [facility] Neutrophil % 80.7(H) 41.0 - 74.0 % 11/19/2024 12:[address] [facility] Lymphocyte % 12.0(L) 17.0 - 47.0 % 11/19/2024 12:[address] [facility] Monocyte % 7.1 3.0 - 11.0 % 11/19/2024 12:[address] [facility] Eosinophil % 0.0 0.0 - 7.0 % 11/19/2024 12:[address] [facility] Basophil % 0.0 0.0 - 1.6 % 11/19/2024 12:[address] [facility] Immature Granulocytes % 0.2 0.0 - 1.0 % 11/19/2024 12:[address] [facility] Neutrophil Absolute 3.95 1.60 - 7.50 x10E9/L 11/19/2024 12:[address] [facility] Lymphocyte Absolute 0.59(L) 1.00 - 4.40 x10E9/L 11/19/2024 12:[address] [facility] Monocyte Absolute 0.35 0.15 - 1.00 x10E9/L 11/19/2024 12:[address] [facility] Eosinophil Absolute 0.00 0.00 - 0.60 x10E9/L 11/19/2024 12:[address] [facility] Basophil Absolute 0.00 0.00 - 0.13 x10E9/L 11/19/2024 12:[address] [facility] Blood BLOOD SPECIMEN / Unknown Venipuncture / Unknown 11/19/2024 12:06 PM [facility] 11/19/2024 12:08 PM [facility] Ronna Huynh DO LAB - HEMATOLOGY ORDERABLES [facility] [address] [place] [address] * (ABNORMAL) COMPREHENSIVE METABOLIC PANEL (11/19/2024 12:06 PM [facility]) Glucose 126(H) 70 - 99 mg/dL 11/19/2024 12:[address] [facility] Sodium 139 136 - 145 mmol/L 11/19/2024 12:[address] [facility] Potassium 3.3(L) 3.5 - 5.1 mmol/L 11/19/2024 12:[address] [facility] Chloride 105 98 - 107 mmol/L 11/19/2024 12:[address] [facility] CO2 18(L) 22 - 29 mmol/L 11/19/2024 12:[address] [facility] Calcium 8.5 8.4 - 10.4 mg/dL 11/19/2024 12:[address] [facility] Anion Gap 16 6 - 16 mmol/L 11/19/2024 12:[address] [facility] BUN 7 5.3 - 18.7 mg/dL 11/19/2024 12:[address] [facility] Creatinine 1.01 0.72 - 1.25 mg/dL 11/19/2024 12:[address] [facility] Alkaline Phosphatase 135 40 - 150 U/L 11/19/2024 12:[address] [facility] ALT 85(H) 0 - 55 U/L 11/19/2024 12:[address] [facility] AST 180(H) 5 - 34 U/L 11/19/2024 12:[address] [facility] Protein Total 7.0 6.4 - 8.3 gm/dL 11/19/2024 12:[address] [facility] Albumin 3.8 3.4 - 5.0 gm/dL 11/19/2024 12:[address] [facility] Bilirubin Total 1.5(H) 0.2 - 1.2 mg/dL 11/19/2024 12:[address] [facility] eGFR by CKD-EPI >90 >=90 mL/min/1.7 3 m2 11/19/2024 12:[address] [facility] Blood BLOOD SPECIMEN / Unknown Venipuncture / Unknown 11/19/2024 12:06 PM [facility] 11/19/2024 12:08 PM [facility] Ronna Huynh DO LAB - CHEMISTRY O RDERABLES [facility] [address] [place] [id number] * MAGNESIUM BLOOD (11/19/2024 12:06 PM [facility]) Magnesium 2.1 1.6 - 2.6 mg/dL 11/19/2024 12:42 PM [facility] Blood BLOOD SPECIMEN / Unknown Venipuncture / Unknown 11/19/2024 12:06 PM [facility] 11/19/2024 12:08 PM [facility] Melvin Castillo PA-C LAB - SENIOR EDUCATION SPECIALIST RY ORDERABLES [facility] [address] [place] [address] * LIPASE BLOOD (11/19/2024 12:06 PM [facility]) Lipase 44 <60 U/L 11/19/2024 12:42 PM [facility] Blood BLOOD SPECIMEN / Unknown Venipuncture / Unknown 11/19/2024 12:06 PM [facility] 11/19/2024 12:08 PM [facility] Melvin Castillo PA-C LAB - SENIOR EDUCATION SPECIALIST RY ORDERABLES [facility] [address] [facility] [employer] [place] [address] * EKG 12-LEAD (11/19/2024 12:04 PM [facility]) Ventricular Rate 118 BPM [facility] Atrial Rate 118 BPM [facility] P-R Interval 150 ms [facility] QRS Duration ms 76 ms [facility] Q-T Interval ms 326 ms [facility] QTC Calculation (Bezet) 456 ms [facility] Calculated P [place] 24 degrees [facility] Calculated R [place] 45 degrees [facility] Calculated T [place] 18 degrees [facility] Interpretation EKG Sinus tachycardia Otherwise normal ECG No previous ECGs available Confirmed by DELMA POMPA MD ([id number]) on 11/20/2024 5:30:07 PM [facility] 11/19/2024 12:0 4 PM [facility] 11/20/2024 5:30 PM [facility] Ronna Huynh DO ECG ORDERABLES [facility] MUSE from Last 3 Months Advance Directives * Full Code (Latest Code Status on File) Date Activated Date Inactivated Comments 09/20/2024 10:53 PM 09/26/2024 11:20 AM * Full Code Date Activated Date Inactivated Comments 12/22/2019 7:57 PM 12/25/2019 7:18 PM * Full Code Date Activated Date Inactivated Comments 04/07/2019 3:45 AM 04/11/2019 4:04 PM Care Teams Publication Distributor Relationship Specialty Start Date End Date None, Physician [address] [place] [address] PCP - General 11/19/24
--- OUTSIDE RECORDS SUMMARY | 2025-01-01 12:04 | XMS_ITS | Patient Health Summary ---
Author Organization [facility] Address [address] [place] [address] Care Team Providers Care Trolley Cleaner Name Role Phone None, Physician Primary Care Provider Unavailabl e Note from [facility] [place],non-owned Affiliates and Associated Physician Practices is amultiple site organization consisting of ambulatory clinics and hospital sitesin [place], [place], [place] and [place]. This disclosure is being madepursuant to the Care Everywhere program and may not contain all information available regarding this patient. Last updated 18.[facility] Allergies * Amoxicillin(Urticaria) -Medium Criticality * Aspirin(GI Discomfort) * Risperidone(Other) * Tramadol(Other) Medications * Be aware that medications may not be up to date on this document. Alwaysverify current medications with the patient. * FLUoxetine (PROzac) 20 MG capsule Take 2 (two) capsules by mouth once daily Reasons: Depression * semaglutide (Rybelsus) 14 MG tablet(Started 11/13/2023) Take 1 (one) tablet by mouth once daily Reasons: Type 2 Diabetes * icosapent ethyl (Vascepa) 1 g capsule Take 1 (one) capsule by mouth 2 times daily with morning and evening meal Reasons: High Amount of Triglycerides in the Blood * mirtazapine (Remeron) 7.5 MG tablet Take 1 (one) tablet by mouth at bedtime Reasons: Major Depressive Disorder * melatonin 3 MG tablet Take 10 mg by mouth at bedtime Reasons: Trouble Sleeping * atorvastatin (Lipitor) 40 MG tablet Take 1 (one) tablet by mouth at bedtime Reasons: High Amount of Fats in the Blood * paliperidone palmitate ER (Invega Sustenna) 156 MG/ML injection Inject 156 (one hundred fifty six) mg into muscle once * buPROPion XL 24hr (Wellbutrin-XL) 150 MG tablet(Started 09/24/2024) Take 1 (one) tablet by mouth once daily Reasons: Major Depressive Disorder * OLANZapine (ZyPREXA) 20 MG tablet(Started 09/24/2024) Take 1 (one) tablet by mouth at bedtime Reasons: Schizophrenia * OLANZapine (ZyPREXA) 5 MG tablet(Started 09/24/2024) Take 1 (one) tablet by mouth 2 times daily with morning and evening meal Reasons: Schizophrenia * chlordiazePOXIDE (Librium) 10 MG capsule(Started 11/19/2024) 3 tab tid x 1 day, then 2 tab po tid x 1 day, then 1 tab po tid x 1 day * pantoprazole EC (Protonix) 40 MG tablet(Started 11/19/2024) Take 1 (one) tablet by mouth once daily * ondansetron, disintegrating, (Zofran ODT) 4 MG tablet(Started 11/19/2024) Take 1 (one) tablet by mouth every 6 hours as needed for Nausea/Vomiting Allow tablet to dissolve on the tongue Active Problems Problem Noted Date Diagnosed Date [...] when you are drinking? 5 or 6 4 Q3: How often do you have si x or more drinks on one occasion? Daily or almost daily 09/20/2024 Overall Financial Resource Strain (CARDIA) Answe r Date Recorded How hard is it for you to pa y for the very basics like food, housing, medical care, and heating? Patient declined 09/20/2024 PHQ-2 Answer Date Recorded Patient Health Questionnaire-2 Score 6 09/20/2024 [facility] - [...] any time in the past 12 m [facility], were you homeless or living in a alf (including now)? Patient declined 09/20/2024 Sex and Gender Information Value Date Recorded Sex Assigned at Not on file Gender Identity Not on file Sexual Orientation Not on file Last Filed Vital Signs Vital Sign Reading Time Taken Comments Blood Pressure 146/100 11/19/2024 2:45 PM [employer] Pulse 116 11/19/2024 2:45 PM [employer] Temperature 36.6 C (97.9 F) 11/19/2024 11:56 AM [employer] Respiratory Rate 12 11/19/2024 2:45 PM [employer] Oxygen Saturation 98% 11/19/2024 2:45 PM [employer] Inhaled Oxygen Concentration - - Weight 104.3 kg (230 lb) 11/19/2024 11:56 AM [employer] Height 180.3 cm (5' 11 ) 11/19/2024 11:56 AM [employer] Body Mass Index 32.08 11/19/2024 11:56 AM [employer] Medical Devices Implanted Type Area City [place] Device Identifier Shelf Expiration Date Model / Serial / Lot Btn Fx 11mm Tghtrp Rnd Cncv [facility] - [id number] Implanted:Qty: 1 on 05/05/2020 by Janes Villafana MD at [facility] Left: Knee [employer] 11/10/2024 AR-1588TB-3 / [id number] / [place] Sut Fiberstitch Fbrwr Polystr 2-0 Implanted:Qty: 2 on 05/05/2020 by Janes Villafana MD at [facility] Left: Knee [employer] 09/10/2024 AR-4570 / / [id number] Dev Fx Tghtrp Fibertag Acl Abs Disp Implanted:Qty: 1 on 05/05/2020 by Janes Villafana MD at [facility] Left: Knee [employer] 11/10/2024 AR-1588TNT / / [id number] Dev Fx Tghtrp Fibertag Acl Rt Disp Implanted:Qty: 1 on 05/05/2020 by Janes Villafana MD at [facility] Left: Knee [employer] 10/10/2024 AR-1588RTT / / [id number] Pack Srg Graftlink Atgrft Implanted:Qty: 1 on 05/05/2020 by Janes Villafana MD at [facility] Left: Knee [employer] 12/11/2024 AR-1588AU-C P / / [id number] Sys Fx Acl Implanted:Qty: 1 on 05/05/2020 by Janes Villafana MD at [facility] Left: Knee [employer] 12/11/2021 AR-1593 / / [id number] [place] Sut Fiberstitch Fbrwr Polystr 2-0 Implanted:Qty: 1 on 05/05/2020 by Janes Villafana MD at [facility] Left: Knee [employer] 07/11/2024 AR-4570 / / [id number] Explanted Type Area [place] Device Identifier Shelf Expiration Date Model / Serial / Lot Sut Fibertape Fbrwr 2 Tpr 54in [place] Brd Explanted:Qty: 1 on 05/05/2020 at [facility] Left: Knee [employer] AR-7237 / / [place] Sut Fiberstitch Fbrwr Polystr 2-0 Implanted:Qty: 1 Explanted:Qty: 1 on 05/05/2020 at [facility] Left: Knee [employer] 07/11/2024 AR-4570 / / [id number] Description:failed implant. device not working properly. [place] Sut Fiberstitch Fbrwr Polystr 2-0 Implanted:Qty: 1 Explanted:Qty: 1 on 05/05/2020 at [facility] Left: Knee [employer] 07/10/2024 AR-4570 / / [id number] Description:failed implant. device not working properly. [place] Sut Fiberstitch Fbrwr Polystr 2-0 Implanted:Qty: 1 Explanted:Qty: 1 on 05/05/2020 at [facility] Left: Knee [employer] 07/11/2024 AR-4570 / / [id number] Description:failed implant. device not working properly. Procedures * CARDIAC EKG ORDER(Performed 11/20/2024) * CT HEAD WO CONTRAST(Performed 11/19/2024) Performed for Seizure (HCC) * MAGNESIUM BLOOD(Performed 11/19/2024) * LIPASE BLOOD(Performed 11/19/2024) * COMPREHENSIVE METABOLIC PANEL(Performed 11/19/2024) * CBC W AUTO DIFFERENTIAL(Performed 11/19/2024) * EKG 12-LEAD(Performed 11/19/2024) Performed for Seizure (HCC) * GLUCOSE - POINT OF CARE(Performed 09/22/2024) * GLUCOSE - POINT OF CARE(Performed 09/22/2024) * GLUCOSE - POINT OF CARE(Performed 09/22/2024) * FOLATE(Performed 09/22/2024) * TSH REFLEX FREE T4(Performed 09/22/2024) * LIPID PROFILE(Performed 09/22/2024) * HEMOGLOBIN A1C(Performed 09/22/2024) * COMPREHENSIVE METABOLIC PANEL(Performed 09/22/2024) * CBC W AUTO DIFFERENTIAL(Performed 09/22/2024) * GLUCOSE - POINT OF CARE(Performed 09/21/2024) * GLUCOSE - POINT OF CARE(Performed 09/21/2024) * GLUCOSE - POINT OF CARE(Performed 09/21/2024) * GLUCOSE - POINT OF CARE(Performed 09/21/2024) * ALCOHOL BREATH TEST - POINT OF CARE(Performed 09/20/2024) * DRUG SCREEN URINE(Performed 09/20/2024) * GLUCOSE - POINT OF CARE(Performed 09/20/2024) * COMPREHENSIVE METABOLIC PANEL(Performed 01/31/2024) * CBC W AUTO DIFFERENTIAL(Performed 01/31/2024) * ALCOHOL ETHYL BLOOD(Performed 01/31/2024) * AMMONIA(Performed 05/23/2023) * COMPREHENSIVE METABOLIC PANEL(Performed 05/23/2023) * CBC W AUTO DIFFERENTIAL(Performed 05/23/2023) * DERMATOPATHOLOGY(Performed 12/14/2020) * XR KNEE LEFT 2VW OR LESS(Performed 05/18/2020) Performed for Complete tear of anterior cruciate ligament of left knee, initial encounter * ENDOTRACHEAL TUBE NOTE(Performed 05/05/2020) * TX KNEE SCOPE,AID ANT CRUCIATE REPAIR(Performed 05/05/2020) Performed for Rupture of anterior cruciate ligament of left knee, initial encounter * PERIPHERAL BLOCK(Performed 05/05/2020) * PERIPHERAL BLOCK(Performed 05/05/2020) * EKG 12-LEAD(Performed 05/05/2020) Performed for Preop examination * SARS-COV-2 (COVID-19) IN HOUSE(Performed 05/02/2020) Performed for Preoperative examination * MRI KNEE LEFT WO CONTRAST(Performed 04/19/2020) Performed for Knee instability, left * TSH REFLEX FREE T4(Performed 12/22/2019) * SYPHILIS ANTIBODY CASCADING REFLEX(Performed 12/22/2019) * LIPID PROFILE(Performed 12/22/2019) * HEMOGLOBIN A1C(Performed 12/22/2019) * COMPREHENSIVE METABOLIC PANEL(Performed 12/22/2019) * CBC W AUTO DIFFERENTIAL(Performed 12/22/2019) * URINE MICROSCOPIC ONLY(Performed 12/22/2019) * URINALYSIS REFLEX TO MICROSCOPIC NO CULTURE(Performed 12/22/2019) * URINE DRUG SCREEN IMMUNOASSAY(Performed 12/22/2019) * MRI SHOULDER RIGHT WO CONTRAST(Performed 12/01/2019) Performed for Acute pain of right shoulder * XR KNEE LEFT 4VW OR MORE(Performed 11/11/2019) Performed for Trauma * XR SHOULDER RIGHT 2VW OR MORE(Performed 11/11/2019) Performed for Trauma * XR PELVIS 1 OR 2VW(Performed 11/11/2019) Performed for Trauma * XR CHEST 1VW PORTABLE(Performed 11/11/2019) Performed for Trauma * CT HEAD WO CONTRAST(Performed 11/11/2019) Performed for Trauma * CT CERVICAL SPINE WO CONTRAST(Performed 11/11/2019) Performed for Trauma * TYPE + SCREEN PANEL(Performed 11/11/2019) * CBC W AUTO DIFFERENTIAL(Performed 11/11/2019) * COMPREHENSIVE METABOLIC PANEL(Performed 11/11/2019) * ALCOHOL ETHYL BLOOD(Performed 11/11/2019) * CBC W AUTO DIFFERENTIAL(Performed 04/07/2019) * CLOZAPINE LEVEL(Performed 04/07/2019) * TSH(Performed 04/07/2019) * SYPHILIS ANTIBODY CASCADING REFLEX(Performed 04/07/2019) * LIPID PROFILE(Performed 04/07/2019) * HEMOGLOBIN A1C(Performed 04/07/2019) * LIPASE BLOOD(Performed 04/06/2019) * HEPATIC FUNCTION PANEL(Performed 04/06/2019) * ISTAT CHEM8+ PANEL YASMINE(Performed 04/06/2019) * URINALYSIS REFLEX MICROSCOPIC REFLEX CULTURE(Performed 04/06/2019) * BMP W CA+ NOTIFICATION(Performed 04/06/2019) * CBC W AUTO DIFFERENTIAL(Performed 04/06/2019) * URINE MICROSCOPIC ONLY REFLEX TO CULTURE(Performed 04/06/2019) * CULTURE URINE(Performed 04/06/2019) * DRUG SCREEN URINE(Performed 04/06/2019) * LIPID PROFILE(Performed 05/21/2008) Performed for Gen Psychiatric Exam NEC * CT HEAD WO CONTRAST(Performed 05/20/2008) Performed for Headache * MILI BLOOD SCREEN W/REFLEX TITER(Performed 05/20/2008) Performed for Gen Psychiatric Exam NEC * HEMOGLOBIN A1C(Performed 05/20/2008) Performed for Gen Psychiatric Exam NEC * RPR(Performed 05/20/2008) Performed for Gen Psychiatric Exam NEC * TSH(Performed 05/20/2008) Performed for Gen Psychiatric Exam NEC * VITAMIN B12(Performed 05/20/2008) Performed for Gen Psychiatric Exam NEC * T4 FREE(Performed 05/20/2008) Performed for Gen Psychiatric Exam NEC * DRUG SCREEN TOX LIMITED BLOOD PANEL(Performed 05/19/2008) Performed for Gen Psychiatric Exam NEC * COMPREHENSIVE METABOLIC PANEL(Performed 05/19/2008) Performed for Gen Psychiatric Exam NEC * CBC W AUTO DIFFERENTIAL(Performed 05/19/2008) Performed for Gen Psychiatric Exam NEC Results * CARDIAC EKG ORDER (11/20/2024 4:05 PM [employer]) Narrative 11/20/2024 4:05 PM [employer] [employer] Ordered by an unspecified provider. Scanned Document CARDIAC SERVICES ORD ERABLES * CT HEAD - NON CONTRAST (11/19/2024 1:16 PM [employer]) Only the most recent of3 resultswithin the time period is included. Anatomical Region Laterality Modality Head Computed Tomogra phy 11/19/2024 1:17 PM [employer] Impressions 11/19/2024 1:18 PM [employer] [employer] IMPRESSION: No acute intracranial abnormality. All CT scans at [facility] are performed using dose optimization techniques as appropriate to a performed exam to include AEC and Adjustment of mA and/or kV according to patient size (as appropriate to indication/reason for exam). > Interpreting Provider: Lior Olivera MD on 11/19/2024 1:18 PM Narrative 11/19/2024 1:18 PM [employer] PROCEDURE: CT HEAD WO CONTRAST DATE/TIME OF [...] acute intracranial abnormality. All CT scans at [facility] are performed using dose optimization techniques as appropriate to a performed exam to include AEC and Adjustment of mAand/or kV according to patient size (as appropriate to indication/reason for exam). > Interpreting Provider: Lior Olivera MD on 11/19/2024 1:18 PM Melvin Castillo PA-C CT ORDERABLES * (ABNORMAL) CBC W AUTO DIFFERENTIAL (11/19/2024 12:06 PM [employer]) Only the most recent of9 resultswithin the time period is included. WBC 4.9 4.0 - 10.7 x10E9/L 11/19/2024 12:20 PM SUPER[employer]OR [employer]ASMA [facility] RBC Count 4.28(L) 4.30 - 5.80 x10E12/L 11/19/2024 12:20 PM SUPERVISOR PLASMA [facility] Hemoglobin 14.3 13.3 - 17.5 g/dL 11/19/2024 12:20 PM [facility] Hematocrit 39.8 38.7 - 51.1 % 11/19/2024 12:20 PM [facility] MCV 93.0 80.0 - 98.0 fL 11/19/2024 12:20 PM [facility] MCH 33.4 26.7 - 33.6 pg 11/19/2024 12:20 PM [facility] MCHC 35.9 31.7 - 36.3 g/dL 11/19/2024 12:20 PM SU[employer]OR [employer]ASMA [facility] RDW-CV 14.4 11.3 - 14.8 % 11/19/2024 12:20 PM [facility] Platelet Count 100(L) 150 - 420 x10E9/L 11/19/2024 12:20 PM [facility] MPV 9.6 7.8 - 11.4 fL 11/19/2024 12:20 PM [facility] Neutrophil % 80.7(H) 41.0 - 74.0 % 11/19/2024 12:20 PM [facility] Lymphocyte % 12.0(L) 17.0 - 47.0 % 11/19/2024 12:20 PM [facility] Monocyte % 7.1 3.0 - 11.0 % 11/19/2024 12:20 PM [facility] Eosinophil % 0.0 0.0 - 7.0 % 11/19/2024 12:20 PM [facility] Basophil % 0.0 0.0 - 1.6 % 11/19/2024 12:20 PM [facility] Immature Granulocytes % 0.2 0.0 - 1.0 % 11/19/2024 12:20 PM [facility] Neutrophil Absolute 3.95 1.60 - 7.50 x10E9/L 11/19/2024 12:20 PM [facility] Lymphocyte Absolute 0.59(L) 1.00 - 4.40 x10E9/L 11/19/2024 12:20 PM [facility] Monocyte Absolute 0.35 0.15 - 1.00 x10E9/L 11/19/2024 12:20 PM [facility] Eosinophil Absolute 0.00 0.00 - 0.60 x10E9/L 11/19/2024 12:20 PM [facility] Basophil Absolute 0.00 0.00 - 0.13 x10E9/L 11/19/2024 12:20 PM [facility] Blood BLOOD SPECIMEN / Unknown Venipuncture / Unknown 11/19/2024 12:06 PM [employer] 11/19/2024 12:08 PM [facility] Ronna Huynh DO LAB - HEMATOLOGY ORDERABLES [facility] [address] [place] [address] * (ABNORMAL) COMPREHENSIVE METABOLIC PANEL (11/19/2024 12:06 PM [facility]) Only the most recent of7 resultswithin the time period is included. Glucose 126(H) 70 - 99 mg/dL 11/19/2024 12:32 PM [facility] Sodium 139 136 - 145 mmol/L 11/19/2024 12:32 PM [facility] Potassium 3.3(L) 3.5 - 5.1 mmol/L 11/19/2024 12:32 PM [facility] Chloride 105 98 - 107 mmol/L 11/19/2024 12:32 PM [facility] CO2 18(L) 22 - 29 mmol/L 11/19/2024 12:32 PM [facility] Calcium 8.5 8.4 - 10.4 mg/dL 11/19/2024 12:32 PM [facility] Anion Gap 16 6 - 16 mmol/L 11/19/2024 12:32 PM [facility] BUN 7 5.3 - 18.7 mg/dL 11/19/2024 12:32 PM [facility] Creatinine 1.01 0.72 - 1.25 mg/dL 11/19/2024 12:32 PM [facility] Alkaline Phosphatase 135 40 - 150 U/L 11/19/2024 12:32 PM [facility] ALT 85(H) 0 - 55 U/L 11/19/2024 12:32 PM [facility] AST 180(H) 5 - 34 U/L 11/19/2024 12:32 PM [facility] Protein Total 7.0 6.4 - 8.3 gm/dL 11/19/2024 12:32 PM [facility] Albumin 3.8 3.4 - 5.0 gm/dL 11/19/2024 12:32 PM [facility] Bilirubin Total 1.5(H) 0.2 - 1.2 mg/dL 11/19/2024 12:32 PM [facility] eGFR by CKD-EPI >90 >=90 mL/min/1.7 3 m2 11/19/2024 12:32 PM [facility] Blood BLOOD SPECIMEN / Unknown Venipuncture / Unknown 11/19/2024 12:06 PM [employer] 11/19/2024 12:08 PM [employer] Ronna Huynh DO LAB - CHEMISTRY O RDERABLES Performing Organization Address City/[facility]/ZIP Co de Phone Number [facility] [address] [place] [address] * MAGNESIUM BLOOD (11/19/2024 12:06 PM [employer]) Pathologist [facility] Magnesium 2.1 1.6 - 2.6 mg/dL 11/19/2024 12:42 PM [employer] [facility] Blood BLOOD SPECIMEN / Unknown Venipuncture / Unknown 11/19/2024 12:06 PM [employer] 11/19/2024 12:08 PM [employer] Melvin Castillo PA-C LAB - STUDIO POTTER RY ORDERABLES Performing Organization Address [facility] Co de Phone Number [facility] [address] [place] [address] * LIPASE BLOOD (11/19/2024 12:06 PM [employer]) Only the most recent of2 resultswithin the time period is included. Pathologist [facility] Lipase 44 <60 U/L 11/19/2024 12:42 PM [employer]MA [facility] Blood BLOOD SPECIMEN / Unknown Venipuncture / Unknown 11/19/2024 12:06 PM [employer] 11/19/2024 12:08 PM [employer] Melvin Csatillo PA-C LAB - STUDIO POTTER RY ORDERABLES Performing Organization Address [facility] Co de Phone Number [facility] [address] [place] [address] * EKG 12-LEAD (11/19/2024 12:04 PM [employer]) Only the most recent of2 resultswithin the time period is included. Ventricular Rate 118 BPM [facility] Atrial Rate 118 BPM [facility] P-R Interval 150 ms [facility] QRS Duration ms 76 ms [facility] Q-T Interval ms 326 ms [facility] QTC Calculation (Bezet) 456 ms [facility] Calculated P [place] 24 degrees [facility] Calculated R [place] 45 degrees [facility] Calculated T [place] 18 degrees [facility] Interpretation EKG Sinus tachycardia Otherwise normal ECG No previous ECGs available Confirmed by DELMA POMPA MD ([id number]) on 11/20/2024 5:30:07 PM [facility] 11/19/2024 12:0 4 PM [employer] 11/20/2024 5:30 PM [employer] Ronna Huynh DO ECG ORDERABLES [facility] * (ABNORMAL) GLUCOSE - POINT OF CARE (09/22/2024 5:01 PM [employer]) Only the most recent of8 resultswithin the time period is included. Glucose WB/POC 103(H) 70 - 99 mg/dL 09/22/2024 5:07 PM [employer] [facility] Specimen Type Cap Fingerstick 2023 5:07 PM [employer]ASMA [facility] Blood BLOOD SPECIMEN / Unknown 09/22/2024 5:01 PM [employer] 09/22/2024 5:07 PM [employer] Darrell Aly MD LAB - POINT OF CARE ORDERABLES Performing Organization Address City/[facility]/ZIP Co de Phone Number [facility] [address] [place] [address] * TSH REFLEX FREE T4 (09/22/2024 6:47 AM [employer]) Only the most recent of2 resultswithin the time period is included. Pathologist [facility] TSH 0.752 0.350 - 4.940 uIU/mL 09/22/2024 11:01 AM [employer] [facility] Blood BLOOD SPECIMEN / Unknown Venipuncture / Unknown 09/22/2024 6:47 AM [employer] 09/22/2024 7:15 AM [employer] Leah Gamino APRN-GRINDING SUPERVISOR LAB - CHEMISTRY O RDERABLES Performing Organization Address [facility]/ZIP Co de Phone Number [facility] [address] [place] [address] * HEMOGLOBIN A1C (09/22/2024 6:47 AM [employer]) Only the most recent of4 resultswithin the time period is included. Hemoglobin A1c 4.5 <5.7 % 09/22/2024 10:31 AM [facility] Estimated Average Glucose 82 mg/dL 09/22/2024 10:31 AM [facility] Blood BLOOD SPECIMEN / Unknown Venipuncture / Unknown 09/22/2024 6:47 AM [employer] 09/22/2024 7:14 AM [employer]PER[employer]OR [employer]MA Narrative [facility] - 09/22/2024 10:31 AM [facility] HbA1c Interpretation: Normal: < 5.7% Pre-diabetes: 5.7-6.4% Diabetes: Equal to or greater than 6.5% Test results diagnostic of diabetes should be repeated for confirmation. Treatment target values recommended by ADA and other clinical organizations should be used to evaluate metabolic control in patients. This test should not replace glucose testing for patients with Type 1 diabetes, pediatric patients, or women. Falsely low HbA1c results may be observed in patients with clinical conditions that shorten erythrocyte life span or decrease mean erythrocyte age such as the presence of unstable hemoglobin variants, elevated hemoglobin F level or other causes of hemolytic anemia. HbA1c may not accurately reflect glycemic control when clinical conditions that affect erythrocyte survival are present. Severe Iron deficiency anemia may yield falsely high results. Hemoglobin A1c assay should not be used to diagnose or monitor diabetes in patients with malignancy, recent blood transfusion, chronic kidney or liver disease. This method may yield falsely low results when hemoglobin (HbF) exceeds 5% in the specimen. The Love Alinity assay for the measurement of HbA1c is a National Glycohemoglobin Standardization Program (NGSP) certified method. Leah Gamino [facility] LAB - CHEMISTRY O RDERABLES Performing Organization Address City/[facility]/ZIP Co de Phone Number [facility] [address] [place] [address] * FOLATE (09/22/2024 6:47 AM [employer]) Folate 7.1 7.0 - 31.4 ng/mL 09/22/2024 11:01 AM [facility] Blood BLOOD SPECIMEN / Unknown Venipuncture / Unknown 09/22/2024 6:47 AM [employer] 09/22/2024 7:15 AM [employer] Leah Gamino CELL OPERATION SUPERVISOR-GRINDING SUPERVISOR LAB - CHEMISTRY O RDERAALIREZA Performing Organization Address City/[facility]/ZIP Co de Phone Number [facility] [address] [place] [address] * LIPID PROFILE (09/22/2024 6:47 AM [employer]) Only the most recent of4 resultswithin the time period is included. Cholesterol 118 <200 mg/dL 09/22/2024 10:24 AM [facility] Triglycerides 95 <150 mg/dL 09/22/2024 10:24 AM [facility] HDL Cholesterol 44 >40 mg/dL 4 10:24 AM [facility] LDL Calculated 55 <130 mg/dL 09/22/2024 10:24 AM [facility] VLDL Calculated 19 <=30 mg/dL 4 10:24 AM [facility] Chol HDL Ratio 2.7 <4.5 09/22/2024 10:24 AM [facility] LDL/HDL Ratio 1.3 <5.0 09/22/2024 10:24 AM [facility] Blood BLOOD SPECIMEN / Unknown Venipuncture / Unknown 09/22/2024 6:47 AM [employer] 09/22/2024 7:15 AM [employer] Leah Gamino CELL OPERATION SUPERVISOR-GRINDING SUPERVISOR LAB - CHEMISTRY O RDERAALIREZA Performing Organization Address City/[facility]/ZIP Co de Phone Number [facility] [address] [place] [address] * ALCOHOL BREATH TEST - POINT OF CARE (09/20/2024 9:13 AM SUPERVISOR PLASMA) Breath Alcohol Quant 0.050 <0.001 %[facility] POCT TESTING Breath BREATH / Unknown 09/20/2024 9:13 AM SUPERVISOR PLASMA Jose J Dodge MD LAB - POINT OF CARE ORDERABLES [facility] POCT TESTING [address] [place] [address], [facility] [phone] * (ABNORMAL) DRUG SCREEN URINE (09/20/2024 8:40 AM SUPERVISOR PLASMA) Only the most recent of2 resultswithin the time period is included. [facility] Cannabinoids Screen Urine Detected(A) Not detected 09/20/2024 8:51 AM [facility] Phencyclidine Screen Urine Not detected Not detected 09/20/2024 8:51 AM [facility] Cocaine Screen Urine Not detected Not detected 09/20/2024 8:51 AM [facility] Methamphetamine Screen Urine Not detected Not detected 09/20/2024 8:51 AM [facility] Opiate Screen Urine Not detected Not detected 09/20/2024 8:51 AM [facility] Amphetamines Screen Urine Not detected Not detected 09/20/2024 8:51 AM [facility] Benzodiazepines Screen Urine Detected(A) Not detected 09/20/2024 8:51 AM [facility] Tricyclics Screen Urine Not Detected Not Detected 09/20/2024 8:51 AM [facility] Methadone Screen Urine Not detected Not detected 09/20/2024 8:51 AM [facility] Barbiturates Screen Urine Not detected Not detected 09/20/2024 8:51 AM [facility] Oxycodone Screen Urine Detected(A) Not detected 09/20/2024 8:51 AM [facility] Urine URINE / Unknown Collection / Unknown 09/20/2024 8:40 AM [employer] 09/20/2024 8:40 AM [employer] Narrative [facility] - 09/20/2024 8:51 AM [employer] This drug screen is designed for MEDICAL purposes only. It is not to be used for legal purposes, including but not limited to worker's compensation, police investigations, occupational issues, child custody, etc. Any positive result is only presumptive and must be confirmed with a separate confirmatory test ordered by the physician. Drug Screening Test Cutoff Values: AMPHETAMINES 500 ng/mL BARBITURATES 200 ng/mL BENZODIAZEPINES 150 ng/mL CANNABINOIDS(THC) 50 ng/mL COCAINE 150 ng/mL METHADONE 200 ng/mL METHAMPHETAMINE 500 ng/mL OPIATES 100 ng/mL OXYCODONE 100 ng/mL PHENCYCLIDINE(PCP) 25 ng/mL TRICYCLICS 300 ng/mL Jose J Dodge MD LAB - URINE CH EMISTRY ORDERABLES Performing Organization Address City/[facility]/ZIP Co de Phone Number [facility] [address] [place], [place] [address] [phone] * (ABNORMAL) ALCOHOL ETHYL BLOOD (01/31/2024 7:46 PM CDT) Only the most recent of2 resultswithin the time period is included. Ethanol 206.6(H) <10 mg/dL 01/31/2024 8:36 PM CDT [facility] Ethanol Calculated 0.207(H) <=0.100 gm/dL 01/31/2024 8:36 PM CDT [facility] Blood BLOOD SPECIMEN / Unknown Venipuncture / Unknown 01/31/2024 7:46 PM CDT 01/31/2024 8:11 PM CDT Narrative [facility] - 01/31/2024 8:36 PM CDT Ethanol Interp <10: None Detected Depression of CSN: >100 mg/dL Potentially Critical: >250 mg/dL Potentially Fatal >400 mg/dL Ethanol in the patient's blood will contribute to the osmolar gap. Ethanol's contribution to the osmolar gap can be estimated by dividing the concentration of ethanol in mg/dL by 4.6. This test is for clinical use only and does not equal a SINCERE for legal purposes. Mp Pratt MD LAB - CHEMISTRY MARIA ALEJANDRA JOHNSON Performing Organization Address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
== END 2025-01-01 12:47 | disposition home or self-care (01) ==
PROVIDERS: Emergency Provider Nurse Practitioner Family
DX: L24.9 Irritant contact dermatitis, unspecified cause (principal); L03.114 Cellulitis of left upper limb; L03.113 Cellulitis of right upper limb; E11.9 Type 2 diabetes mellitus without complications
CPT/HCPCS: 99213; G0463